=== PATIENT | female | born 1940 | race Caucasian/White ===

== ENCOUNTER 2018-11-05 09:41 | Outpatient (CLI) | payer MEDICARE, OTHER, SELFPAY ==
[2018-11-05 11:36] LABS: ALT 18 U/L (12-78); AST 17 U/L (15-37); Albumin 3.5 g/dL (3.4-5.0); Alkaline Phosphatase 63 U/L (46-116); Anion Gap 7.2 mmol/L (3-11); BUN 16 mg/dL (7-18); Bilirubin, Total 0.5 mg/dL (0.2-1.0); CO2 31.8 mmol/L (21.0-32.0); CREATININE 0.82 mg/dL (0.55-1.02); Chloride 106 mmol/L (98-107); Cholesterol 187 mg/dL (50-200); Glucose 112 mg/dL (70-100); HDL Cholesterol 63 mg/dL (40-60); LDL CHOLESTEROL 87 mg/dL (<100); Potassium 3.9 mmol/L (3.5-5.1); Sodium 145 mmol/L (136-145); Total Protein 6.8 g/dL (6.4-8.2); Triglyceride 256 mg/dL (30-150)
[2018-11-05 11:43] LABS: Calcium 9.5 mg/dL (8.5-10.1)
== END 2018-11-05 10:01 ==
PROVIDERS: PCP Family Medicine; Visit Provider Family Medicine
DX: E78.5 Hyperlipidemia, unspecified (principal)
CPT/HCPCS: 36415; 80053; 80061; 83721

== ENCOUNTER 2019-01-20 08:22 | Emergency (ER) | payer MEDICARE, OTHER, SELFPAY ==
[2019-01-20 08:39] VITALS: BP 176/84; PULSE 72; RESP 16; TEMP 36.6; O2SAT 98
[2019-01-20 08:43] LABS: Bilirubin Small (Negative); Blood Moderate (Negative); Clarity Sl Cloudy; Glucose Negative (Negative); Ketones Negative (Negative); Leukocyte Esterase Trace (Negative); Nitrite Negative (Negative); Specific Gravity >= 1.030 (1.005-1.025); Urobilinogen 0.2 EU/dL (Up TO 0.2)
[2019-01-20 09:00] LABS: Bacteria Moderate HPF (Negative); Crystals Negative HPF (Negative); Epithelial Cells Moderate HPF (Negative); Mucus Moderate (Negative); RBC 0-2 (0-2); WBC 20-50 HPF (0-5)
[2019-01-20 09:01] LABS: C & S Indicated? No/Sq. Contamination
--- NOTE | 2019-01-20 09:14 | W.ED.GENAD ---
Discharge Plan Disposition Patient Disposition: HOME Condition: Improving Discharge Details Chief Complaint: Abd Prob Clinical Impression: Inguinal hernia of left side without obstruction or gangrene, Blood pressure elevated without history of HTN Primary Care Provider: Elio Rubio ED Provider: Stuart Sheth Home Meds and New Rx's Prescriptions: Continued magnesium chloride [Mag 64] 64 MG tablet,delayed release (DR/EC) 64 mg PO BID RF: 0 biotin 1 MG tablet 1 mg PO DAILY RF: 0 cholecalciferol (vitamin D3) 5,000 UNIT tablet 5,000 unit PO DAILY RF: 0 albuterol sulfate [ProAir HFA] 8.5 GM HFA aerosol inhaler 2 puff Inhalation QID PRNQty: 3 RF: 4 fluticasone propionate 16 GM spray,suspension 1 spray NS BID Qty: 1 RF: 0 potassium chloride [Klor-Con] 20 MEQ packet 20 meq PO DAILY Qty: 90 RF: 4 Flovent HFA 12 GM HFA aerosol inhaler 1 puff Inhalation BID Qty: 3 RF: 4 montelukast [Singulair] 10 mg tablet 10 mg PO DAILY Qty: 90 RF: 4 omeprazole 20 mg capsule,delayed release(DR/EC) 20 mg PO DAILY Qty: 90 RF: 4 sertraline 25 mg tablet 25 mg PO DAILY Qty: 90 RF: 3 Discharge Instructions Instructions: Inguinal Hernia (ED), Hypertension (ED) Additional Instructions: Return to the emergency department immediately if you have any significant increase in pain or discomfort, fever chills, inability to pass gas or have bowel movements. Otherwise you should call general surgery office tomorrow for arrangement of follow-up appointment early next week. Referrals: [facility] [Provider Group] - 5 days Discharge Data Discharge Date/Time-TO BE ENTERED AT DEPARTURE: 01/20/19 13:47 Medical Decision Making Patient presenting to the emergency department for chief complaint left lower quadrant/inguinal mass and burning pain. Patient states that she has felt this bulging mass for approximately 2 months but yesterday started having significant burning sensation and pain to this area. Patient denies any fever chills, nausea vomiting does state one episode of loose stools this morning but otherwise denies any associated symptoms. She does state that she is incontinent of urine but this is been going on for ever . Physical exam does show a palpable mass in the left inguinal region that is not reducible. Patient has active bowel sounds and otherwise benign abdominal exam. Patient does state earlier today pain was 9 or 10 but now is only a 1. She does state that she took acetaminophen earlier this morning and lying down helps. Plan to check labs and CT imaging for concern of left inguinal hernia. Patient denies any need for pain medication at this time. Review of labs show no leukocytosis and no elevated lactate, nondiagnostic CMP, and CT showing inguinal hernia containing portion of sigmoid. Did call and speak with general surgeon Dr. Peralta who recommended early follow-up next week and return precautions standard for hernia. These were thoroughly discussed with patient. Patient placed upon follow-up list for assistance in arranging early follow-up next week. After discussion of diagnosis and plan of care patient has no further needs, questions, or concerns and states clear understanding to return to the emergency department for any worsening symptoms. Prior to ladies underwear operator staff informed me of elevated blood pressure readings. Patient was reassessed and denies any chest pain headache neurological symptoms and otherwise states she feels fine except being nervous about her ill daughter. Given the patient is asymptomatic and showing no other symptoms I feel that patient should have reassessment of her blood pressure at primary care's office within the next week given no history of hypertension return precautions for this were also discussed with patient HPI General Mode of arrival: ambulatory. Date/Time Provider Initiated Documentation: 01/20/19 08:51. Limitations to Documentation: no limitations. Information obtained by: patient and RN notes reviewed. History of Present Illness 78 year old F presents to the emergency department with the chief complaint of abd pain, possible hernia, described as mild, with intensity rated at 1. Quality is described as burning, and is localized to the abdomen and left (lower). Patient started experiencing this day(s) (2) and it has been constant. No exacerbating factors reported . Patient notes no other symptoms.. Patient did receive the following treatments prior to arrival, other (Acetaminophen) Related Data Home Medications Medication Instructions Recorded Confirmed magnesium chloride [Mag 64] 64 mg PO BID 03/25/13 01/24/19 biotin 1 mg PO DAILY 08/13/16 01/24/19 cholecalciferol (vitamin D3) 5,000 unit PO DAILY 08/13/16 01/24/19 albuterol sulfate [ProAir HFA] 2 puff INHALATION QID PRN #3 ea 11/11/16 01/24/19 fluticasone propionate 1 spray NS BID #1 bottle 10/12/17 01/24/19 potassium chloride [Klor-Con] 20 meq PO DAILY #90 packet 02/15/18 01/24/19 Flovent HFA 1 puff INHALATION BID #3 ea 03/21/18 01/24/19 montelukast 10 mg tablet 10 mg PO DAILY #90 tab-cap 11/12/18 01/24/19 omeprazole 20 mg capsule,delayed 20 mg PO DAILY #90 tab-cap 11/12/18 01/24/19 release sertraline 25 mg tablet 25 mg PO DAILY #90 tab-cap 11/15/18 01/24/19 Previous Rx's Medication Instructions Recorded fluticasone propionate 1 spray NS BID #1 bottle 10/12/17 potassium chloride [Klor-Con] 20 meq PO DAILY #90 packet 02/15/18 Flovent HFA 1 puff INHALATION BID #3 ea 03/21/18 montelukast 10 mg tablet 10 mg PO DAILY #90 tab-cap 11/12/18 omeprazole 20 mg capsule,delayed 20 mg PO DAILY #90 tab-cap 11/12/18 release sertraline 25 mg tablet 25 mg PO DAILY #90 tab-cap 11/15/18 Allergies Allergy/AdvReac Type Severity Reaction Status Date / Time cephalexin Allergy Severe SKIN RASH Unverified 01/24/19 11:33 Penicillins Allergy Intermediate SKIN RASH Unverified 01/24/19 11:33 erythromycin base Allergy Unknown Unverified 01/24/19 11:33 benzonatate AdvReac Intermediate migraine, Unverified 01/24/19 11:33 eye burning levofloxacin [From Levaquin] AdvReac Intermediate mouth sores Unverified 01/24/19 11:33 NSAIDS (Non-Steroidal AdvReac Intermediate ASTHMA Unverified 01/24/19 11:33 Anti-Inflamma EXACERBATION simvastatin AdvReac Mild MYALGIAS Unverified 01/24/19 11:33 aspirin AdvReac Unknown ASTHMA Unverified 01/24/19 11:33 EXACERBATION pseudoephedrine AdvReac Unknown INSOMNIA Unverified 01/24/19 11:33 General Stated Complaint: Abd Prob LAMBERTO: 3 Review of Systems Constitutional Denies chills, Denies fever(s) and Denies poor appetite Cardiovascular Denies chest pain and Denies dyspnea Respiratory Denies cough and Denies dyspnea Gastrointestinal Reports as per HPI, Reports abdominal pain, Denies melena, Denies change in bowel habits, Denies constipation, Denies diarrhea, Reports loose stools (x1 today), Denies nausea and Denies vomiting Genitourinary Denies hematuria, Denies pelvic pain, Reports urinary incontinence, Denies urinary hesitancy and Denies urinary urgency Integumentary/Breasts Denies rash [facility] Surgical History Ligation of fallopian tube Repair of inguinal hernia Family History Mother Heart disease Asthma Father Heart disease Cancer Sister RA (rheumatoid arthritis) Heart disease Asthma Brother Asthma Cancer Diabetes Brother Essential hypertension Depression Heart disease Asthma Maternal Grandfather Heart disease Asthma Paternal Grandfather Cancer Maternal Grandmother Diabetes Paternal Grandmother Stroke Son RA (rheumatoid arthritis) Daughter Diabetes Depression Stroke MS (multiple sclerosis) Asthma Social History Smoking/Tobacco Use Status: Former Tobacco Use Alcohol Intake: current Alcohol Intake frequency: 0-2 drinks per day Alcohol type: wine Drug use: Never Substance use type: does not use Caregiver/Support person: No Housing: house Pets and animals: No Sexually active: No Current gender identity: female What is your relationship status?: How often do you talk on the phone with friends or family?: once per week How often do you get together with friends or relatives?: twice per week How often do you attend spiritism or temple services?: decline to answer Do you belong to any clubs or organized social groups?: no Panel score (0-1 are the most socially isolated patients): 1 Duration: 15-30 minutes/day Frequency: 3-4 times per week Verito/Orthodoxy: Protestant Do you feel safe in your relationship?: Yes Exam Const General: cooperative Orientation: alert, awake and oriented x3 Resp Effort & Inspection: normal respiratory effort and able to speak in complete sentences Auscultation: clear to auscultation bilaterally Cardio Rate: regular rate Rhythm: regular rhythm Heart Sounds: S1 normal and S2 normal GI Palpation: soft, no hepatosplenomegaly, not firm, no guarding, hernia, mass (Left inguinal), no pulsatile masses, not rigid, no splenomegaly and tender in the LLQ; not at McBurney's point and Rovsing's sign negative Auscultation: normal bowel sounds Back/Spine/Pelvis Back: no CVA tenderness Neuro General: alert, awake, oriented x3, gait normal and moves all extremities Course Vital Signs Temperature 36.6 C 01/20/19 08:39 Pulse 72 01/20/19 08:39 Respiratory Rate 16 01/20/19 08:39 Blood Pressure 176/84 H 01/20/19 08:39 Pulse Oximetry 98 01/20/19 08:39 Temperature 36.6 C 01/20/19 08:39 Temperature Source Skin 01/20/19 08:39 Pulse 72 01/20/19 08:39 Respiratory Rate 16 01/20/19 08:39 Respiratory Effort Non-Labored 01/20/19 08:39 Blood Pressure 176/84 H 01/20/19 08:39 Blood Pressure Position Sitting 01/20/19 08:39 Pulse Oximetry 98 01/20/19 08:39 Oxygen Delivery Method Room Air 01/20/19 08:39 Oxygen Flow Rate 0 01/20/19 08:39 Pain Level 0 01/20/19 08:39 Lab/Test Results Lab/Test Results: Laboratory Tests Range/Units 01/20/19 08:35 Urine Color (Yellow) Yellow Urine Clarity Sl cloudy Urine pH (5-8) 5.0 Ur Specific [place] (1.005-1.025) >= 1.030 H Urine Protein (Negative) mg/dL 100 H Urine Ketones (Negative) mg/dL Negative Urine Blood (Negative) Moderate H Urine Nitrite (Negative) Negative Urine Bilirubin (Negative) Small H Urine Urobilinogen (Up TO 0.2) EU/dL 0.2 Ur Leukocyte Esterase (Negative) Trace H Urine RBC (0-2) 0-2 Urine WBC (0-5) HPF 20-50 Ur Epithelial Cells (Negative) HPF Moderate Urine Crystals (Negative) HPF Negative Urine Bacteria (Negative) HPF Moderate Urine Mucus (Negative) Moderate Urine Other (Negative) Ur Culture Indicated? No/sq. contamination Urine Glucose (Negative) mg/dL Negative
--- NOTE | 2019-01-20 09:19 | ED.GENADUL_ITS ---
Discharge Plan Disposition Patient Disposition: HOME Condition: Improving Discharge Details Chief Complaint: Abd Prob Clinical Impression: Inguinal hernia of left side without obstruction or gangrene, Blood pressure elevated without history of HTN Primary Care Provider: Elio Rubio ED Provider: Stuart Sheth Home Meds and New Rx's Prescriptions: Continued magnesium chloride [Mag 64] 64 MG tablet,delayed release (DR/EC) 64 mg PO BID RF: 0 biotin 1 MG tablet 1 mg PO DAILY RF: 0 cholecalciferol (vitamin D3) 5,000 UNIT tablet 5,000 unit PO DAILY RF: 0 albuterol sulfate [ProAir HFA] 8.5 GM HFA aerosol inhaler 2 puff Inhalation QID PRNQty: 3 RF: 4 fluticasone propionate 16 GM spray,suspension 1 spray NS BID Qty: 1 RF: 0 potassium chloride [Klor-Con] 20 MEQ packet 20 meq PO DAILY Qty: 90 RF: 4 Flovent HFA 12 GM HFA aerosol inhaler 1 puff Inhalation BID Qty: 3 RF: 4 montelukast [Singulair] 10 mg tablet 10 mg PO DAILY Qty: 90 RF: 4 omeprazole 20 mg capsule,delayed release(DR/EC) 20 mg PO DAILY Qty: 90 RF: 4 sertraline 25 mg tablet 25 mg PO DAILY Qty: 90 RF: 3 Discharge Instructions Instructions: Inguinal Hernia (ED), Hypertension (ED) Additional Instructions: Return to the emergency department immediately if you have any significant increase in pain or discomfort, fever chills, inability to pass gas or have bowel movements. Otherwise you should call general surgery office tomorrow for arrangement of follow-up appointment early next week. Referrals: [facility] [Provider Group] - 5 days Discharge Data Discharge Date/Time-TO BE ENTERED AT DEPARTURE: 01/20/19 13:47 Medical Decision Making Patient presenting to the emergency department for chief complaint left lower quadrant/inguinal mass and burning pain. Patient states that she has felt this bulging mass for approximately 2 months but yesterday started having significant burning sensation and pain to this area. Patient denies any fever chills, nausea vomiting does state one episode of loose stools this morning but otherwise denies any associated symptoms. She does state that she is incontinent of urine but this is been going on for ever . Physical exam does show a palpable mass in the left inguinal region that is not reducible. Patient has active bowel sounds and otherwise benign abdominal exam. Patient does state earlier today pain was 9 or 10 but now is only a 1. She does state that she took acetaminophen earlier this morning and lying down helps. Plan to check labs and CT imaging for concern of left inguinal hernia. Patient denies any need for pain medication at this time. Review of labs show no leukocytosis and no elevated lactate, nondiagnostic CMP, and CT showing inguinal hernia containing portion of sigmoid. Did call and speak with general surgeon Dr. Peralta who recommended early follow-up next week and return precautions standard for hernia. These were thoroughly discussed with patient. Patient placed upon follow-up list for assistance in arranging early follow-up next week. After discussion of diagnosis and plan of care patient has no further needs, questions, or concerns and states clear understanding to return to the emergency department for any worsening symptoms. 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 Patient was reassessed and denies any chest pain headache neurological symptoms and otherwise states she feels fine except being nervous about her ill daughter. Given the patient is asymptomatic and showing no other symptoms I feel that patient should have reassessment of her blood pressure at primary care's office within the next week given no history of hypertension return precautions for this were also discussed with patient HPI General Mode of arrival: ambulatory . Date/Time Provider Initiated Documentation: 01/20/19 08:51 . Limitations to Documentation: no limitations . Information obtained by: patient and RN notes reviewed . History of Present Illness 78 year old F presents to the emergency department with the chief complaint of abd pain, possible hernia, described as mild, with intensity rated at 1. Quality is described as burning, and is localized to the abdomen and left (lower). Patient started experiencing this day(s) (2) and it has been constant. No exacerbating factors reported . Patient notes no other symptoms.. Patient did receive the following treatments prior to arrival, other (Acetaminophen) Related Data Home Medications Medication Instructions Recorded Confirmed magnesium chloride [Mag 64] 64 mg PO BID 03/25/13 01/24/19 biotin 1 mg PO DAILY 08/13/16 01/24/19 cholecalciferol (vitamin D3) 5,000 unit PO DAILY 08/13/16 01/24/19 albuterol sulfate [ProAir HFA] 2 puff INHALATION QID PRN #3 ea 11/11/16 01/24/19 fluticasone propionate 1 spray NS BID #1 bottle 10/12/17 01/24/19 potassium chloride [Klor-Con] 20 meq PO DAILY #90 packet 02/15/18 01/24/19 Flovent HFA 1 puff INHALATION BID #3 ea 03/21/18 01/24/19 montelukast 10 mg tablet 10 mg PO DAILY #90 tab-cap 11/12/18 01/24/19 omeprazole 20 mg capsule,delayed 20 mg PO DAILY #90 tab-cap 11/12/18 01/24/19 release sertraline 25 mg tablet 25 mg PO DAILY #90 tab-cap 11/15/18 01/24/19 Previous Rx's Medication Instructions Recorded fluticasone propionate 1 spray NS BID #1 bottle 10/12/17 potassium chloride [Klor-Con] 20 meq PO DAILY #90 packet 02/15/18 Flovent HFA 1 puff INHALATION BID #3 ea 03/21/18 montelukast 10 mg tablet 10 mg PO DAILY #90 tab-cap 11/12/18 omeprazole 20 mg capsule,delayed 20 mg PO DAILY #90 tab-cap 11/12/18 release sertraline 25 mg tablet 25 mg PO DAILY #90 tab-cap 11/15/18 Allergies Allergy/AdvReac Type Severity Reaction Status Date / Time cephalexin Allergy Severe SKIN RASH Unverified 01/24/19 11:33 Penicillins Allergy Intermediate SKIN RASH Unverified 01/24/19 11:33 erythromycin base Allergy Unknown Unverified 01/24/19 11:33 benzonatate AdvReac Intermediate migraine, Unverified 01/24/19 11:33 eye burning levofloxacin [From Levaquin] AdvReac Intermediate mouth sores Unverified 01/24/19 11:33 NSAIDS (Non-Steroidal AdvReac Intermediate ASTHMA Unverified 01/24/19 11:33 Anti-Inflamma EXACERBATION simvastatin AdvReac Mild MYALGIAS Unverified 01/24/19 11:33 aspirin AdvReac Unknown ASTHMA Unverified 01/24/19 11:33 EXACERBATION pseudoephedrine AdvReac Unknown INSOMNIA Unverified 01/24/19 11:33 General Stated Complaint: Abd Prob LAMBERTO: 3 Review of Systems Constitutional Denies chills, Denies fever(s) and Denies poor appetite Cardiovascular Denies chest pain and Denies dyspnea Respiratory Denies cough and Denies dyspnea Gastrointestinal Reports as per HPI, Reports abdominal pain, Denies melena, Denies change in bowel habits, Denies constipation, Denies diarrhea, Reports loose stools (x1 today), Denies nausea and Denies vomiting Genitourinary Denies hematuria, Denies pelvic pain, Reports urinary incontinence, Denies urinary hesitancy and Denies urinary urgency Integumentary/Breasts Denies rash [facility] Surgical History Ligation of fallopian tube Repair of inguinal hernia Family History Mother Heart disease Asthma Father Heart disease Cancer Sister RA (rheumatoid arthritis) Heart disease Asthma Brother Asthma Cancer Diabetes Brother Essential hypertension Depression Heart disease Asthma Maternal Grandfather Heart disease Asthma Paternal Grandfather Cancer Maternal Grandmother Diabetes Paternal Grandmother Stroke Son RA (rheumatoid arthritis) Daughter Diabetes Depression Stroke MS (multiple sclerosis) Asthma Social History Smoking/Tobacco Use Status: Former Tobacco Use Alcohol Intake: current Alcohol Intake frequency: 0-2 drinks per day Alcohol type: wine Drug use: Never Substance use type: does not use Caregiver/Support person: No Housing: house Pets and animals: No Sexually active: No Current gender identity: female What is your relationship status?: How often do you talk on the phone with friends or family?: once per week How often do you get together with friends or relatives?: twice per week How often do you attend holiness or gnosticist services?: decline to answer Do you belong to any clubs or organized social groups?: no Panel score (0-1 are the most socially isolated patients): 1 Duration: 15-30 minutes/day Frequency: 3-4 times per week Verito/Buddhism: Rastafari Do you feel safe in your relationship?: Yes Exam Const General: cooperative Orientation: alert, awake and oriented x3 Resp Effort & Inspection: normal respiratory effort and able to speak in complete sentences Auscultation: clear to auscultation bilaterally Cardio Rate: regular rate Rhythm: regular rhythm Heart Sounds: S1 normal and S2 normal GI Palpation: soft, no hepatosplenomegaly, not firm, no guarding, hernia, mass (Left inguinal), no pulsatile masses, not rigid, no splenomegaly and tender in the LLQ; not at McBurney's point and Rovsing's sign negative Auscultation: normal bowel sounds Back/Spine/Pelvis Back: no CVA tenderness Neuro General: alert, awake, oriented x3, gait normal and moves all extremities Course Vital Signs Temperature 36.6 C 01/20/19 08:39 Pulse 72 01/20/19 08:39 Respiratory Rate 16 01/20/19 08:39 Blood Pressure 176/84 H 01/20/19 08:39 Pulse Oximetry 98 01/20/19 08:39 Temperature 36.6 C 01/20/19 08:39 Temperature Source Skin 01/20/19 08:39 Pulse 72 01/20/19 08:39 Respiratory Rate 16 01/20/19 08:39 Respiratory Effort Non-Labored 01/20/19 08:39 Blood Pressure 176/84 H 01/20/19 08:39 Blood Pressure Position Sitting 01/20/19 08:39 Pulse Oximetry 98 01/20/19 08:39 Oxygen Delivery Method Room Air 01/20/19 08:39 Oxygen Flow Rate 0 01/20/19 08:39 Pain Level 0 01/20/19 08:39 Lab/Test Results Lab/Test Results: Laboratory Tests Range/Units 01/20/19 08:35 Urine Color (Yellow) Yellow Urine Clarity Sl cloudy Urine pH (5-8) 5.0 Ur Specific [place] (1.005-1.025) >= 1.030 H Urine Protein (Negative) mg/dL 100 H Urine Ketones (Negative) mg/dL Negative Urine Blood (Negative) Moderate H Urine Nitrite (Negative) Negative Urine Bilirubin (Negative) Small H Urine Urobilinogen (Up TO 0.2) EU/dL 0.2 Ur Leukocyte Esterase (Negative) Trace H Urine RBC (0-2) 0-2 Urine WBC (0-5) HPF 20-50 Ur Epithelial Cells (Negative) HPF Moderate Urine Crystals (Negative) HPF Negative Urine Bacteria (Negative) HPF Moderate Urine Mucus (Negative) Moderate Urine Other (Negative) Ur Culture Indicated? No/sq. contamination Urine Glucose (Negative) mg/dL Negative
[2019-01-20] MEDS: Omnipaque 350 MG/ML 50 ML BTL PO (09:34)
[2019-01-20] MEDS: Breeza Beverage 473 ML BTL PO ×2 (09:34→09:35)
[2019-01-20 09:35] LABS: Lactate-non-spesis 1.4 mmol/l (0.6-1.4)
[2019-01-20 09:39] LABS: Abs Immature Grans 0.01 k/cumm (0.0-0.09); Absolute Basophil Count 0.04 k/cumm (0.0-0.2); Absolute Eosinophil Count 0.36 k/cumm (0.0-0.7); Absolute Lymphocyte Count 1.12 k/cumm (1.2-3.4); Absolute Monocyte Count 0.44 k/cumm (0.11-0.7); Absolute Neutrophil Count 6.34 k/cumm (1.2-6.7); Basophils % 0.5; Eosinophils % 4.3; HCT 39.3 % (36.0-46.0); HGB 12.4 g/dL (12.0-15.5); Immature Grans % 0.1; Lymphocytes % 13.5; Mean Corp. HGB Concentration 31.6 g/dL (32.0-36.0); Mean Corpuscular Volume 98.3 fL (80-95); Mean Platelet Volume 9.9 fL (8.0-11.0); Monocytes % 5.3; Neutrophils % 76.3; Platelet Count 253 x1000/uL (130-400); RBC Distribution Width 13.1 % (11.7-14.6); White Blood Cell Count 8.31 k/cumm (4.4-10.8)
[2019-01-20 09:58] LABS: ALT 20 U/L (12-78); AST 17 U/L (15-37); Albumin 3.6 g/dL (3.4-5.0); Alkaline Phosphatase 66 U/L (46-116); Anion Gap 10.5 mmol/L (3-11); BUN 11 mg/dL (7-18); Bilirubin, Total 0.4 mg/dL (0.2-1.0); CO2 27.5 mmol/L (21.0-32.0); CREATININE 0.87 mg/dL (0.55-1.02); Calcium 9.6 mg/dL (8.5-10.1); Chloride 103 mmol/L (98-107); Glucose 102 mg/dL (70-100); Sodium 141 mmol/L (136-145); Total Protein 7.3 g/dL (6.4-8.2)
--- NOTE | 2019-01-20 11:43 | DI.CT_ITS ---
SYMPTOM/DIAGNOSIS: LLQ PAIN ABDOMEN AND PELVIC CT: CT examination of the abdomen and pelvis was performed with a bolus infusion of 100 cc's of Omnipaque 350 and ingestion of dilute barium. Images obtained through the lung bases are unremarkable. Liver, spleen and pancreas appear normal. Gallbladder and bile ducts are CT normal. Abdominal aorta is of normal diameter and no major vascular abnormality is seen. Adrenals and kidneys are unremarkable except for an incidental tiny cortical left renal lower pole cyst. Appendix appears normal. No evidence of diverticulitis. There is a left inguinal hernia which contains a small knuckle of sigmoid colon. There does not appear to be obstruction at this site. Note is also made of a small fat containing umbilical hernia. [employer] structures appear intact. CONCLUSION: No evidence of acute process however note is made of left inguinal hernia containing a knuckle of the sigmoid colon without evidence of acute obstruction.
[2019-01-20 13:21] VITALS: BP 186/92; PULSE 91; RESP 18; TEMP 36.6; O2SAT 96
--- NOTE | 2019-01-20 13:45 | NUR.NOTE ---
N/P addressed asymptomatic elevated blood pressure with patient, no new orders, patient is comfortable following up with PCP. Nursing Note:
--- NOTE | 2019-01-21 08:18 | PDOC.ERCMPRO ---
Care Management Progress Note 01/21-Reji SENIOR PROJECT LEADER/TEAM LEAD requested assistance with a surgical f/u early next week (Per ) for inguinal hernia. Referral faxed to [facility] this am.
--- NOTE | 2019-01-21 08:19 | CMPROGNOTE_ITS ---
Care Management Progress Note 01/21-Reji GLOBAL PROFESSIONAL requested assistance with a surgical f/u early next week (Per ) for inguinal hernia. Referral faxed to [facility] this am.
== END 2019-01-20 13:47 | disposition home or self-care (01) ==
PROVIDERS: Emergency Provider Nurse Practitioner Family; PCP Family Medicine
DX: K40.90 Unilateral inguinal hernia, without obstruction or gangrene, not specified as recurrent (principal); R03.0 Elevated blood-pressure reading, without diagnosis of hypertension
CPT/HCPCS: 36415; 80053; 99285; 74177; 81003; 81015; 83605; 85025; 99284; Q9967

== ENCOUNTER → 2019-01-31 09:51 | Outpatient (BNVA) | payer MEDICARE, OTHER, SELFPAY | PROVIDERS: PCP Family Medicine; Referring Provider Family Medicine; Visit Provider Surgery | DX: K40.90 Unilateral inguinal hernia, without obstruction or gangrene, not specified as recurrent (principal) | CPT/HCPCS: 99212; 99213 ==

== ENCOUNTER 2019-02-03 02:14 | Outpatient (CLI) | payer MEDICARE, OTHER, SELFPAY | END 2019-02-03 02:34 | PROVIDERS: PCP Family Medicine; Visit Provider Surgery | DX: J44.9 Chronic obstructive pulmonary disease, unspecified (principal); Z01.810 Encounter for preprocedural cardiovascular examination | CPT/HCPCS: 93005; 93010 ==

== ENCOUNTER 2019-02-15 05:57 | Day surgery (SDC) | payer MEDICARE, SELFPAY ==
[2019-02-15] VITALS (7 sets, daily range): BP systolic 148–169; BP diastolic 69–98; PULSE 62–69; RESP 1–21; TEMP 36.4–36.6; O2SAT 95–100
[2019-02-15] MEDS: Lactated Ringers 1,000 ML 80 ML IV (06:50)
[2019-02-15] MEDS: Bupivacaine LIPOSOME/PF 133 MG/10 ML VIAL IJ ×2 (07:19→08:30)
[2019-02-15] MEDS: Albuterol 2.5 MG/3 ML INH SOLN VIAL UPD (07:24)
[2019-02-15] MEDS: Bupivacaine 0.25% Pres-Free 30 ML VIAL (07:40)
[2019-02-15] MEDS: DOXYCYCLINE 100 MG in Normal Saline 100 ML IVPB (07:58)
[2019-02-15] MEDS: Bupivacaine 0.5% Pres-Free 30 ML VIAL (08:09)
--- NOTE | 2019-02-15 08:19 | LYM_PTH ---
PATIENT: María Vargas LOC: [facility] U#:[id number] AGE/SX: 78/F ROOM: RE02/15/[address]: Nicole Shelley : 1940 BED: DIS: 02/15/2019 SPEC #: [id number] RECD: 02/15/19 12:51 STATUS: CLAUDE REQ #: [id number] ARMOND: 02/15/19 08:[address]: Nicole Shelley DEPT: Surgical Specimen RECD BY: Tamra Bethea ENTERED: 02/15/19 12:52 SP TYPE: LYM OTHR DR: Elio Rubio MD Tissues: 1 - LYMPH NODE BIOPSY Procedures: GROSS AND MICRO LEVEL 4 Comments: [id number]
--- NOTE | 2019-02-15 08:47 | W.PM.OP ---
Date of service: 02/15/19 Time of Service: 08:48 Operative Note DATE OF PROCEDURE: 02/15/19 PRE-OP DIAGNOSIS: left inguinal hernia POST-OP DIAGNOSIS: other (direct ) PROCEDURE: open repair w/ mesh SURGEON: Nicole Shelley ANESTHESIA: GETA ESTIMATED BLOOD LOSS: 2 COMPLICATIONS: None Patient was transported to: same day Implants: see RN notes lot: [id number] Procedure Description: dictated
--- NOTE | 2019-02-15 08:50 | ROE_ITS ---
Date of service: 02/15/19 Time of Service: 08:48 Operative Note DATE OF PROCEDURE: 02/15/19 PRE-OP DIAGNOSIS: left inguinal hernia POST-OP DIAGNOSIS: other (direct ) PROCEDURE: open repair w/ mesh SURGEON: Nicole Shelley ANESTHESIA: GETA ESTIMATED BLOOD LOSS: 2 COMPLICATIONS: None Patient was transported to: same day Implants: see RN notes lot: [id number] Procedure Description: dictated
--- NOTE | 2019-02-15 14:36 | ROE_ITS ---
DATE OF PROCEDURE: February 15, 2019 PREOPERATIVE DIAGNOSIS: Left inguinal hernia. POSTOPERATIVE DIAGNOSIS: Left inguinal hernia, direct. SURGEON: Nicole Shelley D.O. AURIST: Mauricio Ferrer ANESTHESIA: General/MAC. ESTIMATED BLOOD LOSS: < 5 cc's CONDITION: The patient tolerated the procedure well without complication. INDICATION FOR PROCEDURE: Ms. Vargas is a 78-year-old female seen for a symptomatic left inguinal hernia and is here today for repair. Informed consent was obtained, explaining risks and benefits of the procedure, including but not limited to bleeding, infection, pneumonia, blood clots, recurrence, chronic pain, chronic numbness, reaction to the mesh and having to remove the mesh, complications of anesthesia and other unforetold complications. The patient is examined and marked in preop. DESCRIPTION OF PROCEDURE: The patient is brought to the operative room suite and placed in the supine position. Anesthesia is administered per the Department of Anesthesia. A TAP block was done by Anesthesia. The patient is prepped and draped in the usual sterile fashion using a ChloraPrep and Betadine scrub solution. A time-out is performed and we agree that this is a left hernia. She did receive preop antibiotics. A #10 blade is used to make a linear incision one fingerbreadth above the ilioinguinal ligament. Electrocautery is used to provide hemostasis and dissect down to the deeper tissues. She does have a firm and enlarged and what appears to be a lymph node; this is dissected out and sent to Pathology because it is so firm, but it is most-likely reactive. She does have a large hernia protruding through what would be her external ring. The nerve is noted and it is dissected off the hernia sac. The hernia sac is not opened, and is dissected off of surrounding tissue. It is returned to the abdominal cavity. An extra-large Bard mesh PerFix plug is placed in and over-sewn using #2-0 Vicryl. Lot [id number]. The patch is then placed, it is sewn onto the pubic tubercle and then sewn onto the shelving portion of the external oblique. The wound is then irrigated. The deep tissues are approximated with #2-0 Vicryl and the skin and deep tissue is approximated with #4-0 Monocryl in a running fashion and with skin glue. The patient tolerated the procedure well without complication and transferred to the recovery room in stable condition. cc: Elio Rubio M.D.
== END 2019-02-15 10:57 | disposition home or self-care (01) ==
PROVIDERS: PCP Family Medicine; Visit Provider Surgery
PROC: (CPT 49505; principal; 2019-02-15 07:30)
DX: K40.90 Unilateral inguinal hernia, without obstruction or gangrene, not specified as recurrent (principal); K21.9 Gastro-esophageal reflux disease without esophagitis
CPT/HCPCS: 49505; 76942; 88305; C1781; J1885; J2405; J3010; J7613

== ENCOUNTER 2019-02-22 10:07 | Outpatient (CLI) | payer MEDICARE, SELFPAY ==
--- NOTE | 2019-02-22 09:59 | DI.RAD_ITS ---
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 In addition there is severe DJD involving the first metacarpal multangular joint. There is no evidence of a fracture or dislocation.
== END 2019-02-22 10:27 ==
PROVIDERS: PCP Family Medicine; Referring Provider Family Medicine; Visit Provider Orthopaedic Surgery
DX: M25.541 Pain in joints of right hand (principal); M19.041 Primary osteoarthritis, right hand
CPT/HCPCS: 99211; 73140

== ENCOUNTER 2019-02-22 10:59 | Outpatient (CLI) | payer MEDICARE, SELFPAY ==
[2019-02-22 13:31] LABS: Uric Acid 6.9 mg/dL (2.6-6.0)
== END 2019-02-22 11:19 ==
PROVIDERS: PCP Family Medicine; Visit Provider Orthopaedic Surgery
DX: M79.641 Pain in right hand (principal); M10.9 Gout, unspecified; M25.441 Effusion, right hand
CPT/HCPCS: 36415; 99211; 99213; 73140; 84550

== ENCOUNTER → 2019-02-24 11:31 | Outpatient (BNVA) | payer MEDICARE, SELFPAY | PROVIDERS: PCP Family Medicine; Referring Provider Family Medicine; Visit Provider Surgery | DX: Z48.89 Encounter for other specified surgical aftercare (principal); K40.90 Unilateral inguinal hernia, without obstruction or gangrene, not specified as recurrent ==

== ENCOUNTER 2019-02-27 13:07 | Emergency (ER) | payer MEDICARE, SELFPAY ==
[2019-02-27 13:21] VITALS: BP 185/72; PULSE 86; RESP 18; TEMP 36.7; O2SAT 97
--- NOTE | 2019-02-27 13:56 | W.ED.GENAD ---
Discharge Plan Disposition Patient Disposition: HOME Discharge Details Chief Complaint: Cellulitis Clinical Impression: Generalized weakness Primary Care Provider: Elio Rubio ED Provider: Victor M Bland Home Meds and New Rx's Prescriptions: Continued fluticasone propionate 50 mcg/actuation spray,suspension 1 spray NS BID PRN (Reason: allergy symptoms) RF: 0 amlodipine 5 mg tablet 5 mg PO DAILY Qty: 30 RF: 5 Lactobacillus acidophilus 1 billion cell capsule 1,000 mmu cells PO DAILY Qty: 30 RF: 0 magnesium chloride [Mag 64] 64 MG tablet,delayed release (DR/EC) 64 mg PO BID RF: 0 biotin 1 MG tablet 1 mg PO DAILY RF: 0 cholecalciferol (vitamin D3) 5,000 UNIT tablet 5,000 unit PO DAILY RF: 0 albuterol sulfate [ProAir HFA] 8.5 GM HFA aerosol inhaler 2 puff Inhalation QID PRNQty: 3 RF: 4 potassium chloride [Klor-Con] 20 MEQ packet 20 meq PO DAILY Qty: 90 RF: 4 Flovent HFA 12 GM HFA aerosol inhaler 1 puff Inhalation BID Qty: 3 RF: 4 montelukast [Singulair] 10 mg tablet 10 mg PO DAILY Qty: 90 RF: 4 omeprazole 20 mg capsule,delayed release(DR/EC) 20 mg PO DAILY Qty: 90 RF: 4 sertraline 25 mg tablet 25 mg PO HS RF: 0 Discharge Instructions Instructions: Weakness (ED), Hypomagnesemia (ED) Additional Instructions: Be sure to take full course of antibiotic as prescribed. Drink plenty of fluids and allow for plenty of rest. Please contact your primary care physician to arrange follow-up. Be sure to discuss restarting her antihypertensive medication. Please follow-up with surgery as scheduled tomorrow. Return to the ER for any worsening or new concerning symptoms. Referrals: Elio Rubio [Primary Care Provider] - Discharge Data Discharge Date/Time-TO BE ENTERED AT DEPARTURE: 02/27/19 15:55 Medical Decision Making 14:05 --78-year-old female here today generally not feeling well, felt chilly earlier. Patient is hemodynamically stable. Afebrile. She does have some rhonchi left lower lung. She denies recent cough or shortness of breath. She is saturating well in no respiratory distress. Abdominal exam is benign. Patient does have elevated blood pressure which she notes has been persistent since surgery when she was told to stop taking her antihypertensive Patient did have a hernia repair on 02/15/2019 and saw her primary care physician on 02/24/2019 in follow-up was noted to have some erythema adjacent to the hernia repair site. She was started on doxycycline which she is been taking for the past few days. Redness has resolved. She has some induration under the surgical wound but is nontender and presumed to be scar tissue. --Screening ECG was reviewed and interpreted by me: Sinus rhythm 75 bpm, left axis deviation, no STEMI, nondiagnostic. 15:12 --labs reviewed and nondiagnostic. Mild hypomagnesemia -this may be contributing to weakness. Plan to give 1 g IV. UA is not consistent with UTI. Chest x-ray interpreted by radiology: No evidence for acute abnormality in the chest. Patient reassessed and notes feeling better. Plan at this time is to have her follow-up with surgery as scheduled tomorrow. I encouraged her to talk about her antihypertensives with her physician. Disposition decision was made weighing the risks and benefits of hospitalization versus outpatient treatment, the risk for further decompensation, and the patient's wishes. The patient was stable and requested discharge. Prior to discharge, my usual and customary return precautions were reviewed with the patient - this included follow-up instructions and reason to return to the emergency department if condition worsens, does not improve as expected, or other new concerns arise. 16:00 -- Patient was discharged from the emergency department prior to receiving magnesium 1 g as ordered. Patient contacted. Patient friend here to bring her mag ox 800mg. Additional discharge instructions were provided regarding low magnesium. Patient was encouraged to follow-up with her primary care physician regarding this. HPI General Mode of arrival: ambulatory. Date/Time Provider Initiated Documentation: 02/27/19 13:33. Limitations to Documentation: no limitations. Information obtained by: patient. HPI Narrative: 78-year-old female with multiple medical problems presents with chief complaint of generally not feeling well. Symptoms persistestarted last night and persisted today. Patient notes that she generally just doesn't feel well and felt chilly earlier today. She denies shaking chills. She does not have a thermometer at home. She denies cough. Patient has chronic urinary incontinence. Denies dysuria. Patient did have hernia repair on 02/15/2019 left inguinal, was seen by PCP on 02/24/2019 and noted to have some erythema adjacent to the surgical wound and was started on doxycycline which she is been taking as prescribed. She notes wound appears to be healing well. No significant tenderness in the area. Erythema has improved. Related Data Home Medications Medication Instructions Recorded Confirmed magnesium chloride [Mag 64] 64 mg PO BID 03/25/13 03/02/19 biotin 1 mg PO DAILY 08/13/16 03/02/19 cholecalciferol (vitamin D3) 5,000 unit PO DAILY 08/13/16 03/02/19 albuterol sulfate [ProAir HFA] 2 puff INHALATION QID PRN #3 ea 11/11/16 03/02/19 potassium chloride [Klor-Con] 20 meq PO DAILY #90 packet 02/15/18 03/02/19 Flovent HFA 1 puff INHALATION BID #3 ea 03/21/18 03/02/19 montelukast 10 mg tablet 10 mg PO DAILY #90 tab-cap 11/12/18 03/02/19 omeprazole 20 mg capsule,delayed 20 mg PO DAILY #90 tab-cap 11/12/18 03/02/19 release fluticasone propionate 50 1 spray NS BID PRN bottle 01/31/19 03/02/19 mcg/actuation nasal spray,suspension sertraline 25 mg PO HS 02/09/19 03/02/19 amlodipine 5 mg tablet 5 mg PO DAILY #30 tab 02/21/19 03/02/19 Lactobacillus acidophilus 1 1,000 mmu cells PO DAILY #30 cap 02/24/19 03/02/19 billion cell capsule Previous Rx's Medication Instructions Recorded potassium chloride [Klor-Con] 20 meq PO DAILY #90 packet 02/15/18 Flovent HFA 1 puff INHALATION BID #3 ea 03/21/18 montelukast 10 mg tablet 10 mg PO DAILY #90 tab-cap 11/12/18 omeprazole 20 mg capsule,delayed 20 mg PO DAILY #90 tab-cap 11/12/18 release amlodipine 5 mg tablet 5 mg PO DAILY #30 tab 02/21/19 Lactobacillus acidophilus 1 1,000 mmu cells PO DAILY #30 cap 02/24/19 billion cell capsule Allergies Allergy/AdvReac Type Severity Reaction Status Date / Time cephalexin Allergy Severe SKIN RASH Verified 02/28/19 12:54 Penicillins Allergy Intermediate SKIN RASH Verified 02/28/19 12:54 erythromycin base Allergy Unknown Verified 02/28/19 12:54 benzonatate AdvReac Intermediate migraine, Verified 02/28/19 12:54 eye burning levofloxacin [From Levaquin] AdvReac Intermediate mouth sores Verified 02/28/19 12:54 NSAIDS (Non-Steroidal AdvReac Intermediate ASTHMA Verified 02/28/19 12:54 Anti-Inflamma EXACERBATION simvastatin AdvReac Mild MYALGIAS Verified 02/28/19 12:54 aspirin AdvReac Unknown ASTHMA Verified 02/28/19 12:54 EXACERBATION pseudoephedrine AdvReac Unknown INSOMNIA Verified 02/28/19 12:54 General Stated Complaint: Cellulitis LAMBERTO: 3 Review of Systems Review of Systems All systems reviewed & are unremarkable except as noted in HPI and below Cardiovascular Denies dyspnea Respiratory Denies cough and Denies dyspnea Gastrointestinal Denies abdominal pain Genitourinary Reports as per HPI PFSH Surgical History History of cystoscopy (Acute) Ligation of fallopian tube Repair of inguinal hernia Family History Mother Heart disease Asthma Father Heart disease Cancer Sister RA (rheumatoid arthritis) Heart disease Asthma Brother Asthma Cancer Diabetes Brother Essential hypertension Depression Heart disease Asthma Maternal Grandfather Heart disease Asthma Paternal Grandfather Cancer Maternal Grandmother Diabetes Paternal Grandmother Stroke Son RA (rheumatoid arthritis) Daughter Diabetes Depression Stroke MS (multiple sclerosis) Asthma Social History Smoking/Tobacco Use Status: Former Tobacco Use Alcohol Intake: current Alcohol Intake frequency: 0-2 drinks per day Alcohol type: wine Drug use: Never Substance use type: does not use Caregiver/Support person: No Housing: house Pets and animals: No Sexually active: No Current gender identity: female What is your relationship status?: How often do you talk on the phone with friends or family?: once per week How often do you get together with friends or relatives?: twice per week How often do you attend hindu or nondenominational services?: decline to answer Do you belong to any clubs or organized social groups?: no Panel score (0-1 are the most socially isolated patients): 1 Duration: 15-30 minutes/day Frequency: 3-4 times per week Verito/Mormonism: Sabianism Do you feel safe at home: Yes Do you feel safe in your relationship?: Yes Exam Const General: cooperative and no acute distress HENMT Head: normocephalic Mouth: moist mucous membranes Eyes Conjunctivae: normal conjunctivae Sclera: normal sclerae Neck Neck: trachea midline and supple Resp Auscultation: no rales, rhonchi left lower and no wheezes Cardio Jugular venous pressure: no JVD Rate: regular rate and not tachycardic Rhythm: regular rhythm GI Palpation: soft, not firm, no guarding, no masses, not rigid and nontender Skin General skin exam: no rashes or lesions noted Other: lt inguinal hernia repair site healing well with no erythema or fluctuance, nonttp Neuro General: alert, awake, oriented x3 and tone normal Extrem General: no edema Psych Appearance: grossly normal Mental Status: mental status grossly normal Speech and Movement: speech and movement normal Course Vital Signs Temperature 36.7 C 02/27/19 13:21 Pulse 86 02/27/19 13:21 Respiratory Rate 18 02/27/19 13:21 Blood Pressure 185/72 H 02/27/19 13:21 Pulse Oximetry 97 02/27/19 13:21 Temperature 36.7 C 02/27/19 13:21 Temperature Source Oral 02/27/19 13:21 Pulse 86 02/27/19 13:21 Respiratory Rate 18 02/27/19 13:21 Respiratory Effort Non-Labored 02/27/19 13:25 Blood Pressure 185/72 H 02/27/19 13:21 Blood Pressure Position Supine 02/27/19 13:21 Pulse Oximetry 97 02/27/19 13:21 Oxygen Delivery Method Room Air 02/27/19 13:21 Oxygen Flow Rate 0 02/27/19 13:21 Pain Level 0 02/27/19 13:21
--- NOTE | 2019-02-27 14:03 | DI.RAD_ITS ---
SYMPTOM/DIAGNOSIS: FEVER AP AND LATERAL CHEST: The heart size is normal. The aorta is mildly tortuous. The lungs are well inflated and clear. No infiltrate or effusion is seen. IMPRESSION: No acute abnormality.
[2019-02-27 14:15] LABS: Abs Immature Grans 0.01 k/cumm (0.0-0.09); Absolute Basophil Count 0.05 k/cumm (0.0-0.2); Absolute Eosinophil Count 0.32 k/cumm (0.0-0.7); Absolute Lymphocyte Count 1.24 k/cumm (1.2-3.4); Absolute Monocyte Count 0.45 k/cumm (0.11-0.7); Absolute Neutrophil Count 4.62 k/cumm (1.2-6.7); Basophils % 0.7; Eosinophils % 4.8; HCT 36.8 % (36.0-46.0); HGB 11.9 g/dL (12.0-15.5); Immature Grans % 0.1; Lymphocytes % 18.5; Mean Corp. HGB Concentration 32.3 g/dL (32.0-36.0); Mean Corpuscular Hemoglobin 31.6 pg (27.0-33.0); Mean Corpuscular Volume 97.6 fL (80-95); Mean Platelet Volume 9.5 fL (8.0-11.0); Monocytes % 6.7; Neutrophils % 69.2; Platelet Count 336 x1000/uL (130-400); RBC 3.77 m/cumm (4.00-5.20); RBC Distribution Width 13.3 % (11.7-14.6); White Blood Cell Count 6.69 k/cumm (4.4-10.8)
[2019-02-27 14:17] LABS: Bilirubin Negative (Negative); Blood Small (Negative); Clarity Clear; Glucose Negative (Negative); Ketones Negative (Negative); Leukocyte Esterase Negative (Negative); Nitrite Negative (Negative); Specific Gravity <= 1.005 (1.005-1.025); Urobilinogen 0.2 EU/dL (Up TO 0.2); pH 5.5 (5-8)
[2019-02-27 14:18] LABS: Bacteria Negative HPF (Negative); C & S Indicated? No; Casts Negative LPF (Negative); Crystals Negative HPF (Negative); Epithelial Cells Negative HPF (Negative); Mucus Negative (Negative); Other Cells Rare Transitional (Negative); RBC 0-2 (0-2); WBC Negative HPF (0-5)
[2019-02-27 14:44] LABS: ALT 20 U/L (12-78); AST 22 U/L (15-37); Albumin 3.3 g/dL (3.4-5.0); Alkaline Phosphatase 80 U/L (46-116); Anion Gap 10.1 mmol/L (3-11); BUN 11 mg/dL (7-18); Bilirubin, Total 0.4 mg/dL (0.2-1.0); CO2 27.9 mmol/L (21.0-32.0); CREATININE 0.71 mg/dL (0.55-1.02); Calcium 9.2 mg/dL (8.5-10.1); Chloride 103 mmol/L (98-107); Glucose 147 mg/dL (70-100); Magnesium 1.5 mg/dL (1.8-2.4); Potassium 3.7 mmol/L (3.5-5.1); Sodium 141 mmol/L (136-145)
[2019-02-27 14:47] LABS: Troponin I < 0.02 ng/mL (0.00-0.06)
--- NOTE | 2019-02-27 15:03 | DI.VRAD_ITS ---
EXAM: XR Chest, 2 Views EXAM DATE/TIME: 02/27/2019 2:05 PM CLINICAL HISTORY: 78 years old, female; Signs and symptoms; Fever TECHNIQUE: Imaging protocol: XR of the chest, 2 views. COMPARISON: No relevant prior studies available. FINDINGS: Lungs: Unremarkable. No consolidation. Pleural space: Unremarkable. No pleural effusion. No pneumothorax. Heart/Mediastinum: Mild cardiomegaly. Vasculature: Aortic ectasia. Bones/joints: Unremarkable. IMPRESSION: No evidence for acute abnormality in the chest. COMMENT: Preliminary interpretation is based on receipt of 2 image(s). A final report will be issued subsequently. Dictated and Authenticated by: Alexia Borja MD. Ordering:MEI Dow MD
[2019-02-27] MEDS: Lactated Ringers 500 ML IV (15:55)
[2019-02-27] MEDS: Magnesium Oxide 400 MG TAB 800 MG PO (16:00)
== END 2019-02-27 15:55 | disposition home or self-care (01) ==
PROVIDERS: Emergency Provider Student in an Organized Health Care Education/Training Program; PCP Family Medicine
DX: R53.1 Weakness (principal); J44.9 Chronic obstructive pulmonary disease, unspecified; Z98.890 Other specified postprocedural states
CPT/HCPCS: 36415; 80053; 93005; 96361; 96374; 99285; 71046; 81003; 81015; 83735; 84484; 85025; 93010

== ENCOUNTER → 2019-02-28 12:40 | Outpatient (BNVA) | payer MEDICARE, SELFPAY | PROVIDERS: PCP Family Medicine; Referring Provider Family Medicine; Visit Provider Surgery | DX: Z48.815 Encounter for surgical aftercare following surgery on the digestive system (principal); Z87.19 Personal history of other diseases of the digestive system ==

== ENCOUNTER 2019-02-28 13:27 | Outpatient (CLI) | payer MEDICARE, SELFPAY ==
[2019-02-28 13:52] LABS: Bilirubin Negative (Negative); Blood Moderate (Negative); Clarity Clear; Glucose Negative (Negative); Ketones Negative (Negative); Leukocyte Esterase Negative (Negative); Nitrite Negative (Negative); Specific Gravity <= 1.005 (1.005-1.025); Urobilinogen 0.2 EU/dL (Up TO 0.2); pH 5.5 (5-8)
[2019-02-28 14:40] LABS: Epithelial Cells Few HPF (Negative); RBC 0-2 (0-2); WBC 0-2 HPF (0-5)
[2019-02-28 14:41] LABS: Bacteria Negative HPF (Negative); C & S Indicated? No; Casts Negative LPF (Negative); Crystals Negative HPF (Negative); Mucus Negative (Negative)
== END 2019-02-28 13:47 ==
PROVIDERS: PCP Family Medicine; Visit Provider Surgery
DX: Z87.19 Personal history of other diseases of the digestive system (principal); Z98.890 Other specified postprocedural states; I10 Essential (primary) hypertension; R82.90 Unspecified abnormal findings in urine; Z48.815 Encounter for surgical aftercare following surgery on the digestive system; R19.7 Diarrhea, unspecified; D64.9 Anemia, unspecified; R53.83 Other fatigue; R77.0 Abnormality of albumin
CPT/HCPCS: 81003; 81015

== ENCOUNTER 2019-02-28 18:20 | Outpatient (REF) | payer MEDICARE, SELFPAY | END 2019-02-28 18:40 | LOC: LBN 18:20 | PROVIDERS: PCP Family Medicine; Visit Provider Surgery | DX: R19.7 Diarrhea, unspecified (principal) | CPT/HCPCS: 87324 ==

== ENCOUNTER 2019-10-26 02:30 | Outpatient (CLI) | payer MEDICARE, OTHER, SELFPAY ==
[2019-10-26 12:58] LABS: Abs Immature Grans 0.01 k/cumm (0.0-0.09); Absolute Basophil Count 0.06 k/cumm (0.0-0.2); Absolute Eosinophil Count 0.25 k/cumm (0.0-0.7); Absolute Lymphocyte Count 1.17 k/cumm (1.2-3.4); Absolute Monocyte Count 0.65 k/cumm (0.11-0.7); Absolute Neutrophil Count 5.18 k/cumm (1.2-6.7); Basophils % 0.8; Eosinophils % 3.4; HCT 37.4 % (36.0-46.0); Immature Grans % 0.1 %; Mean Corp. HGB Concentration 32.1 g/dL (32.0-36.0); Mean Corpuscular Hemoglobin 31.8 pg (27.0-33.0); Mean Corpuscular Volume 99.2 fL (80-95); Mean Platelet Volume 9.6 fL (8.0-11.0); Monocytes % 8.9; Neutrophils % 70.8; Platelet Count 326 x1000/uL (130-400); RBC 3.77 m/cumm (4.00-5.20); RBC Distribution Width 13.1 % (11.7-14.6); White Blood Cell Count 7.32 k/cumm (4.4-10.8)
[2019-10-26 13:20] LABS: ALT 16 U/L (14-59); AST 16 U/L (15-37); Albumin 3.3 g/dL (3.4-5.0); Alkaline Phosphatase 82 U/L (46-116); Anion Gap 9.1 mmol/L (3-11); BUN 8 mg/dL (7-18); Bilirubin, Total 0.6 mg/dL (0.2-1.0); CO2 28.9 mmol/L (21.0-32.0); CREATININE 0.77 mg/dL (0.55-1.02); Calcium 8.8 mg/dL (8.5-10.1); Chloride 106 mmol/L (98-107); Glucose 89 mg/dL (74-106); Potassium 4.2 mmol/L (3.5-5.1); Sodium 144 mmol/L (136-145); Total Protein 6.5 g/dL (6.4-8.2)
[2019-10-26 13:21] LABS: Hemoglobin A1C 5.9 % (3.8-5.6)
== END 2019-10-26 02:50 ==
PROVIDERS: PCP Family Medicine; Visit Provider Family Medicine
DX: R73.9 Hyperglycemia, unspecified (principal); S81.801D Unspecified open wound, right lower leg, subsequent encounter
CPT/HCPCS: 36415; 80053; 83036; 85025

== ENCOUNTER 2019-11-09 01:40 | Outpatient (CLI) | payer MEDICARE, OTHER, SELFPAY ==
--- NOTE | 2019-11-09 08:30 | DI.RAD_ITS ---
EXAM: XR TIB/FIB RT INDICATION: Traumatic wound with delayed healing RLL, [id number]. COMPARISON: No exams were available for comparison TECHNIQUE: 2D digital imaging was performed. FINDINGS: There is edema in the soft tissues of the lower leg. No abnormal gas collection is seen. There is n o evidence of fracture or bony erosion. The knee and ankle joints are unremarkable as visualized. IMPRESSION: Soft tissue edema. No bony abnormalities are seen. DATA REPOSITORY: RADIATION DOSE DELIVERED:
== END 2019-11-09 02:00 ==
PROVIDERS: PCP Family Medicine; Visit Provider Family Medicine
DX: S81.801D Unspecified open wound, right lower leg, subsequent encounter (principal); R60.0 Localized edema
CPT/HCPCS: 73590

== ENCOUNTER 2020-12-26 03:05 | Outpatient (CLI) | payer MEDICARE, OTHER, SELFPAY ==
[2020-12-26 12:37] LABS: Anion Gap 6.4 mmol/L (3-11); BUN 12 mg/dL (7-18); CO2 30.6 mmol/L (21.0-32.0); CREATININE 0.9 mg/dL (0.55-1.02); Calcium 8.9 mg/dL (8.5-10.1); Chloride 106 mmol/L (98-107); Glucose 84 mg/dL (74-106); Potassium 4.2 mmol/L (3.5-5.1); Sodium 143 mmol/L (136-145)
[2020-12-26 12:44] LABS: Hemoglobin A1C 5.7 % (<5.7)
== END 2020-12-26 03:06 | disposition home or self-care (01) ==
LOC: LOS 03:06
PROVIDERS: Family Medicine; PCP Family Medicine; Visit Provider Nurse Practitioner
DX: I10 Essential (primary) hypertension (principal); R73.03 Prediabetes
CPT/HCPCS: 36415; 80048; 83036

== ENCOUNTER 2021-05-22 04:00 | Outpatient (CLI) | payer MEDICARE, OTHER, SELFPAY ==
[2021-05-22 12:43] LABS: HCT 37.8 % (36.0-46.0); HGB 11.9 g/dL (11.2-15.7); MCH 31.5 pg (27.0-33.0); MCHC 31.5 % (32.0-36.0); Platelet Count 283 10^3/uL (130-400); RBC 3.78 10^6/uL (3.93-5.22); RDW 13.5 % (11.7-14.6); RDW-SD 49.4 fL; WBC 8.83 10^3/uL (4.4-10.8)
[2021-05-22 12:59] LABS: ALT 17 U/L (14-59); AST 14 U/L (15-37); Albumin 3.6 g/dL (3.4-5.0); Alkaline Phosphatase 90 U/L (46-116); Bilirubin, Direct 0.1 mg/dL (0.0-0.2); Bilirubin, Total 0.4 mg/dL (0.2-1.0); Total Protein 6.8 g/dL (6.4-8.2)
[2021-05-22 13:13] LABS: PTT Activated 22.1 sec (21.0-27.5); Prothrombin Time 9.9 sec (9.3-11.0)
== END 2021-05-22 04:01 | disposition home or self-care (01) ==
LOC: LOS 04:00
PROVIDERS: PCP Nurse Practitioner; Visit Provider Nurse Practitioner
DX: R23.3 Spontaneous ecchymoses (principal); I10 Essential (primary) hypertension; L03.115 Cellulitis of right lower limb
CPT/HCPCS: 36415; 80076; 85027; 85610; 85730

== ENCOUNTER 2021-11-28 13:47 | Outpatient (CLI) | payer MEDICARE, OTHER, SELFPAY ==
[2021-11-28 14:55] LABS: Abs Immature Grans 0.04 10^3/uL (0.0-0.06); Absolute Basophil Count 0.06 10^3/uL (0.0-0.2); Absolute Eosinophil Count 0.21 10^3/uL (0.0-0.7); Absolute Lymphocyte Count 1.33 10^3/uL (1.2-3.4); Basophils % 0.6; Eosinophils % 2.1; HCT 34.9 % (36.0-46.0); HGB 11.2 g/dL (11.2-15.7); Immature Grans % 0.4; Lymphocytes % 13.1; MCH 31.5 pg (27.0-33.0); MCHC 32.1 % (32.0-36.0); Monocytes % 5.9; Neutrophils % 77.9; Nucleated RBC 0 %; Platelet Count 395 10^3/uL (130-400); RBC 3.56 10^6/uL (3.93-5.22); RDW 13.5 % (11.7-14.6); RDW-SD 49.1 fL; WBC 10.14 10^3/uL (4.4-10.8)
[2021-11-28 16:05] LABS: ALT 15 U/L (14-59); AST 17 U/L (15-37); Albumin 3.5 g/dL (3.4-5.0); Alkaline Phosphatase 105 U/L (46-116); Anion Gap 8.8 mmol/L (3-11); BUN 11 mg/dL (7-18); Bilirubin, Total 0.4 mg/dL (0.2-1.0); CO2 26.2 mmol/L (21.0-32.0); CREATININE 0.9 mg/dL (0.55-1.02); Calcium 8.7 mg/dL (8.5-10.1); Chloride 108 mmol/L (98-107); Glucose 93 mg/dL (74-106); Potassium 4.3 mmol/L (3.5-5.1); Sodium 143 mmol/L (136-145); Total Protein 7.1 g/dL (6.4-8.2)
== END 2021-11-28 13:48 | disposition home or self-care (01) ==
LOC: LBO 13:51
PROVIDERS: PCP Nurse Practitioner; Visit Provider Nurse Practitioner
DX: L97.812 Non-pressure chronic ulcer of other part of right lower leg with fat layer exposed (principal)
CPT/HCPCS: 36415; 80053; 85025

== ENCOUNTER 2022-01-22 16:26 | Outpatient (REF) | payer MEDICARE, OTHER, SELFPAY ==
[2022-01-23 15:04] LABS: COVID-19 RT-PCR UVMMC Result Negative (Negative)
== END 2022-01-22 16:27 | disposition home or self-care (01) ==
LOC: LBN 16:26
PROVIDERS: PCP Nurse Practitioner; Visit Provider Nurse Practitioner
DX: Z20.822 Contact with and (suspected) exposure to COVID-19 (principal); Z01.818 Encounter for other preprocedural examination
CPT/HCPCS: U0003; U0005

== ENCOUNTER 2022-03-19 18:40 | Outpatient (REF) | payer MEDICARE, OTHER, SELFPAY ==
[2022-03-21 11:23] LABS: COVID-19 RT-PCR UVMMC Result Negative (Negative)
== END 2022-03-19 18:41 | disposition home or self-care (01) ==
LOC: LBN 18:40
PROVIDERS: PCP Nurse Practitioner; Visit Provider Nurse Practitioner
DX: Z20.822 Contact with and (suspected) exposure to COVID-19 (principal); Z01.818 Encounter for other preprocedural examination
CPT/HCPCS: U0003

== ENCOUNTER 2022-10-21 11:42 | Outpatient (REF) | payer MEDICARE, OTHER, SELFPAY ==
[2022-10-21 13:21] LABS: Abs Immature Grans 0.02 10^3/uL (0.0-0.06); Absolute Basophil Count 0.08 10^3/uL (0.0-0.2); Absolute Eosinophil Count 0.28 10^3/uL (0.0-0.7); Absolute Lymphocyte Count 1.26 10^3/uL (1.2-3.4); Absolute Monocyte Count 0.55 10^3/uL (0.1-0.8); Absolute Neutrophil Count 6.11 10^3/uL (1.2-6.7); Eosinophils % 3.4; HCT 37.1 % (36.0-46.0); HGB 11.7 g/dL (11.2-15.7); Immature Grans % 0.2; Lymphocytes % 15.2; MCH 31.3 pg (27.0-33.0); MCHC 31.5 % (32.0-36.0); MCV 99 fL (80-95); MPV 9.9 fL (8.0-11.0); Monocytes % 6.6; Neutrophils % 73.6; Platelet Count 296 10^3/uL (130-400); RBC 3.74 10^6/uL (3.93-5.22); RDW 14.6 % (11.7-14.6); RDW-SD 53.6 fL
[2022-10-21 13:32] LABS: ALT 16 U/L (14-59); AST 22 U/L (15-37); Albumin 3.6 g/dL (3.4-5.0); Alkaline Phosphatase 96 U/L (46-116); Anion Gap 5.9 mmol/L (3-11); BUN 13 mg/dL (7-18); Bilirubin, Total 0.7 mg/dL (0.2-1.0); CO2 32.1 mmol/L (21.0-32.0); Calcium 9.2 mg/dL (8.5-10.1); Chloride 107 mmol/L (98-107); Estimated GFR 56.25 (mL/min/1.73m2); Glucose 133 mg/dL (74-106); Potassium 4.1 mmol/L (3.5-5.1); Sodium 145 mmol/L (136-145)
== END 2022-10-21 11:43 | disposition home or self-care (01) ==
LOC: LBN 11:42
PROVIDERS: PCP Nurse Practitioner Family; Visit Provider Physician Assistant
DX: R60.0 Localized edema (principal); L98.8 Other specified disorders of the skin and subcutaneous tissue; L97.821 Non-pressure chronic ulcer of other part of left lower leg limited to breakdown of skin; R73.03 Prediabetes
CPT/HCPCS: 80053; 87077; 85025; 87070; 87186; 87205

== ENCOUNTER 2023-01-21 15:51 | Outpatient (REF) | payer MEDICARE, OTHER, SELFPAY ==
[2023-01-21 21:02] LABS: Bilirubin Negative (Negative); Blood Moderate (Negative); Clarity Sl Cloudy (Clear); Glucose Negative (Negative); Ketones Negative (Negative); Leukocyte Esterase Small (Negative); Nitrite Negative (Negative); Specific Gravity >= 1.030 (1.005-1.025); Urobilinogen 0.2 mg/dL (Up to 0.2); pH 5.5 (5-8)
[2023-01-21 21:15] LABS: Bacteria Few HPF (Negative); C & S Indicated? Yes; Crystals Negative HPF (Negative); Epithelial Cells Few HPF (Negative); Mucus Negative (Negative); WBC >50 HPF (0-5)
== END 2023-01-21 15:52 | disposition home or self-care (01) ==
LOC: LBN 15:51
PROVIDERS: PCP Nurse Practitioner Family; Visit Provider Physician Assistant
DX: R39.15 Urgency of urination (principal); R35.0 Frequency of micturition; R30.0 Dysuria; N39.0 Urinary tract infection, site not specified
CPT/HCPCS: 87077; 81003; 81015; 87086; 87186

== ENCOUNTER 2023-02-10 16:12 | Outpatient (REF) | payer MEDICARE, OTHER, SELFPAY | END 2023-02-10 16:13 | disposition home or self-care (01) | LOC: LBN 16:12 | PROVIDERS: PCP Nurse Practitioner Family; Visit Provider Physician Assistant | DX: J02.9 Acute pharyngitis, unspecified (principal) | CPT/HCPCS: 87070 ==

== ENCOUNTER 2023-03-12 21:20 | Outpatient (REF) | payer MEDICARE, SELFPAY ==
[2023-03-12 21:46] LABS: ESR 38 mm/hr (0-30)
[2023-03-12 21:50] LABS: C-Reactive Protein 5.51 mg/dL (0.0-0.3)
[2023-03-13 19:28] LABS: Rheumatoid Factor <8.6 IU/mL (<12.0)
== END 2023-03-12 21:21 | disposition home or self-care (01) ==
LOC: LBN 21:20
PROVIDERS: PCP Nurse Practitioner Family; Visit Provider Nurse Practitioner Family
DX: M19.90 Unspecified osteoarthritis, unspecified site (principal); R41.89 Other symptoms and signs involving cognitive functions and awareness
CPT/HCPCS: 85652; 86140; 86431

== ENCOUNTER 2023-04-18 15:39 | Emergency (ER) | payer MEDICARE, SELFPAY ==
[2023-04-18 15:45] VITALS: BP 137/63; PULSE 90; RESP 20; TEMP 36.8; O2SAT 97
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
[2023-04-18] MEDS: Potassium Chloride 10 MEQ TABCR PO (16:25)
[2023-04-18] MEDS: Furosemide 20 MG TAB 10 MG PO (16:25)
== END 2023-04-18 16:30 | disposition home or self-care (01) ==
PROVIDERS: Emergency Provider Nurse Practitioner Family; PCP Nurse Practitioner Family
DX: S80.821A Blister (nonthermal), right lower leg, initial encounter; X58.XXXA Exposure to other specified factors, initial encounter; R60.0 Localized edema
CPT/HCPCS: 99283

== ENCOUNTER → 2023-05-01 01:53 | Outpatient (CLI) | payer MEDICARE, SELFPAY ==
--- NOTE | 2023-05-01 07:30 | DI.US_ITS ---
Exam(s) US LOWER EXTREMITY VENOUS RT EXAM: US LOWER EXTREMITY VENOUS RT CLINICAL HISTORY: right leg swelling,R60.0 TECHNIQUE: Grayscale, color, and doppler imaging of the deep venous system of the right lower extrem ity was performed. COMPARISON: US US OR ANESTHESIA from 02/15/2019 FINDINGS: There is no evidence of intraluminal thrombus and there is normal compression and augmentation demons trated within the common femoral vein, femoral vein, and popliteal vein. In the ipsilateral calf the interrogated veins also exhibit normal compression/ augmentation properti es. The ipsilateral saphenofemoral junction is patent. IMPRESSION: 1. No evidence of DVT in the right lower extremity. DATA REPOSITORY:
== END ==
PROVIDERS: PCP Nurse Practitioner Family; Visit Provider Physician Assistant
DX: R60.0 Localized edema (principal)
CPT/HCPCS: 93971

== ENCOUNTER 2023-06-29 22:53 | Outpatient (REF) | payer MEDICARE, SELFPAY ==
[2023-06-29 21:23] LABS: Bilirubin Negative (Negative); Blood Small (Negative); Clarity Clear (Clear); Glucose Negative (Negative); Ketones Negative (Negative); Leukocyte Esterase Negative (Negative); Nitrite Negative (Negative); Specific Gravity <= 1.005 (1.005-1.025); Urobilinogen 0.2 mg/dL (Up to 0.2); pH 5.5 (5-8)
[2023-06-29 21:35] LABS: Bacteria Negative HPF (Negative); C & S Indicated? No; Casts Negative LPF (Negative); Crystals Negative HPF (Negative); Epithelial Cells Rare HPF (Negative); Mucus Negative (Negative); RBC 0-2 HPF (0-2); WBC Negative HPF (0-5)
== END 2023-06-29 22:54 | disposition home or self-care (01) ==
LOC: LBN 22:53
PROVIDERS: PCP Nurse Practitioner Family; Visit Provider Nurse Practitioner Family
DX: M54.9 Dorsalgia, unspecified (principal); R82.998 Other abnormal findings in urine
CPT/HCPCS: 81003; 81015

== ENCOUNTER 2023-07-10 08:24 | Emergency (ER) | payer MEDICARE, SELFPAY ==
[2023-07-10 08:33] VITALS: BP 146/53; PULSE 95; RESP 16; TEMP 37.1; O2SAT 96
--- NOTE | 2023-07-10 08:40 | DI.CT_ITS ---
Exam(s) CT HEAD CERVICAL SPINE WO EXAM: CT HEAD CERVICAL SPINE WO CLINICAL HISTORY: neck laceration. TECHNIQUE: Imaging Protocol: Axial computed tomography images with coronal and sagittal reformatted images were created and reviewed COMPARISON: No exams were available for comparison FINDINGS: Head CT Ventricles and Extra axial spaces: Normal in size and morphology for the patient's age. Hemorrhage: None. Cerebral parenchyma: Normal. Midline shift: None. Brainstem/Cerebellum: Normal. Calvarium: Normal. Visualized Paranasal sinuses/Mastoids: Clear. Soft tissues: Unremarkable. Cervical Spine CT BONES: Vertebral body heights are maintained. Alignment is normal. There is no evidence of acute frac ture. Degenerative disc changes and facet degenerative changes are seen . SOFT TISSUES: No neck laceration is visible by CT. No soft tissue air or foreign body. No paraspina l hematoma. The airway appears intact. No pneumothorax is seen at the lung apices. IMPRESSION: Head CT: No acute abnormality. C-spine CT: Degenerative changes, no acute abnormality. RADIATION DOSE DELIVERED: Total DLP DATA REPOSITORY: All CT scans at this facility are submitted to the National Radiology Data Registry (NRDR) Dose Index Registry (DIR) with the [employer] (ACR). RADIATION OPTIMIZATION: All CT scans at this facility use at least one of these dose optimization te chniques: automated exposure control; mA and/or kV adjustment per patient size (includes targeted exa ms where dose is matched to clinical indication); or iterative reconstruction.
--- NOTE | 2023-07-10 09:11 | ED.GENADUL_ITS ---
Discharge Plan Disposition Patient Disposition: Home Condition: Good Discharge Details Clinical Impression: Abrasion, Fall, Neck abrasion Primary Care Provider: Cait Aguiar ED Provider: Radha Morgan Home Meds and New Rx's Prescriptions: New (DME) Xeroform Petrolatum Dressing 2 X 2 bandage See Rx Instructions .Route Qty: 150 0RF Rx Instructions: As directed No Action furosemide 20 mg tablet 20 mg PO DAILY Qty: 90 1RF fluticasone propionate 50 mcg/actuation spray,suspension 1 spray NS BID PRN (Reason: allergy symptoms) Qty: 16 4RF Mag 64 64 MG tablet,delayed release (DR/EC) 64 mg PO BID Patient Comments: 02/27/19 er--currently on hold biotin 1 MG tablet 1 mg PO DAILY cholecalciferol (vitamin D3) 5,000 UNIT tablet 5,000 unit PO DAILY Lac-Hydrin Five 5 % lotion 1 applic topical DAILY Qty: 226 0RF montelukast [Singulair] 10 mg tablet 10 mg PO DAILY Qty: 90 4RF fluticasone propion-salmeterol [Advair HFA] 45-21 mcg/actuation HFA aerosol inhaler 2 puff inhalation BID Qty: 12 3RF albuterol sulfate 90 mcg/actuation HFA aerosol inhaler 2 puff inhalation QID PRN (Reason: shortness of breath or wheezing) Qty: 8.5 4RF amlodipine 5 mg tablet 5 mg PO DAILY Qty: 90 4RF omeprazole 20 mg capsule,delayed release(DR/EC) See Rx Instructions .ROUTE .COMPLEX Qty: 90 3RF Dose Instruction: TAKE ONE CAPSULE BY MOUTH ONCE DAILY Rx Instructions: TAKE ONE CAPSULE BY MOUTH ONCE DAILY (DME) Mepilex 4 X 4 bandage See Rx Instructions .Route Qty: 5 3RF Rx Instructions: change bandage twice weekly Discharge Instructions Instructions: Head Injury (ED), Abrasion (ED), Skin Tear (ED) Referrals: Cait Aguiar NP [Primary Care Provider] - 3 days Discharge Data Discharge Physician: Radha Morgan Medical Decision Making 83-year-old female presents for evaluation after mechanical fall. She is got a large skin tear to her left anterior neck as well as an abrasion to her left knee. She is neurologically intact. NIH stroke score equals 0. Will obtain CT of head and cervical spine. On review of records her last tetanus was in May 2022. Xeroform dressing will be applied to neck wound. Bandage applied to left knee. CT head and neck unremarkable. CT head and neck unremarkable. Patient and family instructed on wound care. Given instructions on head injury. They understand indications to return. HPI General Date/Time Provider Initiated Documentation: 07/10/23 08:25 . HPI Narrative: 83-year-old female presents for evaluation after mechanical fall. Patient was attempting to ambulate over the threshold when she did not lift her foot high enough. Patient scraped the left anterior neck and has a large skin tear. She denies hitting her head or losing consciousness. She is not on any blood th inners. She does have an abrasion to her left knee. Denies any chest pain or shortness of breath. No cough or cold. No numbness or tingling in his extremities. No weakness in her extremities. Unknown last tetanus. Related Data Home Medications Medication Instructions Recorded Confirmed magnesium chloride 64 mg 64 mg PO BID 03/25/13 07/10/23 (magnesium chloride) tablet,delayed release (Mag 64) biotin 1 mg tablet 1 mg PO DAILY 08/13/16 07/10/23 cholecalciferol (vitamin D3) 125 5,000 unit PO DAILY 08/13/16 07/10/23 mcg (5,000 unit) tablet fluticasone propionate 50 1 spray NS BID PRN allergy 12/03/21 07/10/23 mcg/actuation nasal symptoms #16 grams spray,suspension ammonium lactate 5 % lotion 1 applic topical DAILY #226 grams 04/08/22 06/29/23 (Lac-Hydrin Five) montelukast 10 mg tablet 10 mg PO DAILY #90 tab-caps 08/12/22 07/10/23 (Singulair) fluticasone propionate 45 2 puff inhalation BID #12 grams 12/09/22 07/10/23 mcg-salmeterol 21 mcg/actuation HFA inhaler (Advair HFA) albuterol sulfate 90 mcg/actuation 2 puff inhalation QID PRN 02/19/23 07/10/23 aerosol inhaler shortness of breath or wheezing #8.5 grams amlodipine 5 mg tablet 5 mg PO DAILY #90 tabs 03/30/23 07/10/23 omeprazole 20 mg capsule,delayed See Rx Instructions .Route 06/01/23 07/10/23 release .COMPLEX #90 caps foam bandage 4 X 4 (Mepilex) #5 ea 06/15/23 06/29/23 furosemide 20 mg tablet 20 mg PO DAILY #90 tabs 06/29/23 07/10/23 bismuth tribrom-petrolatum,wh 2 X #150 ea 07/10/23 2 bandage (Xeroform Petrolatum Dressing) Previous Rx's Medication Instructions Recorded fluticasone propionate 50 1 spray NS BID PRN allergy 12/03/21 mcg/actuation nasal symptoms #16 grams spray,suspension ammonium lactate 5 % lotion 1 applic topical DAILY #226 grams 04/08/22 (Lac-Hydrin Five) montelukast 10 mg tablet 10 mg PO DAILY #90 tab-caps 08/12/22 (Singulair) fluticasone propionate 45 2 puff inhalation BID #12 grams 12/09/22 mcg-salmeterol 21 mcg/actuation HFA inhaler (Advair HFA) albuterol sulfate 90 mcg/actuation 2 puff inhalation QID PRN 02/19/23 aerosol inhaler shortness of breath or wheezing #8.5 grams amlodipine 5 mg tablet 5 mg PO DAILY #90 tabs 03/30/23 omeprazole 20 mg capsule,delayed See Rx Instructions .Route 06/01/23 release .COMPLEX #90 caps foam bandage 4 X 4 (Mepilex) #5 ea 06/15/23 furosemide 20 mg tablet 20 mg PO DAILY #90 tabs 06/29/23 bismuth tribrom-petrolatum,wh 2 X #150 ea 07/10/23 2 bandage (Xeroform Petrolatum Dressing) Allergies Allergy/AdvReac Type Severity Reaction Status Date / Time cephalexin Allergy Severe SKIN RASH Verified 07/10/23 08:40 Penicillins Allergy Intermediate SKIN RASH Verified 07/10/23 08:40 erythromycin base Allergy Unknown Verified 07/10/23 08:40 benzonatate AdvReac Intermediate migraine, Verified 06/29/23 16:40 eye burning levofloxacin [From Levaquin] AdvReac Intermediate mouth sores Verified 07/10/23 08:40 NSAIDS (Non-Steroidal AdvReac Intermediate ASTHMA Verified 07/10/23 08:40 Anti-Inflamma EXACERBATION simvastatin AdvReac Mild MYALGIAS Verified 07/10/23 08:40 aspirin AdvReac Unknown ASTHMA Verified 07/10/23 08:40 EXACERBATION pseudoephedrine AdvReac Unknown INSOMNIA Verified 07/10/23 08:40 General Stated Complaint: Trauma LAMBERTO: 3 Review of Systems Narrative: Remainder of review of systems otherwise negative except for as noted in the HPI x10. PFSH All Active Problems (Updated 07/10/23 @ 10:21 by Radha Morgan MD) Neck abrasion (Acute) Fall (Acute) Abrasion (Acute) Arthritis (Acute) Skin ulcer (Acute) Leg edema (Chronic) Pruritic disorder (Acute) Prediabetes (Acute) Cellulitis (Chronic) Eczema (Chronic) HTN (hypertension) (Chronic) Varicose veins of lower extremity (Acute) Total urinary incontinence (Acute) Mild persistent asthma without complication (Acute 03/19/18) Gastroesophageal reflux disease (Acute) Depressive disorder (Acute 08/03/13) Chronic obstructive lung disease (Acute) Medical History Skin tag 02/02- flesh color under right eye Superficial partial thickness burn of back excluding buttock Bruising Non-toxic uninodular goiter Hyperlipidemia Surgical History History of bilateral ligation of fallopian tubes Status post inguinal hernia repair History of cystoscopy hx UTI Ligation of fallopian tube Repair of inguinal hernia left, direct, Dr Nicole Shelley, [facility] Family History Mother , age 70 Heart disease Asthma Father , age 65 Heart disease Cancer Sister , age 74 RA (rheumatoid arthritis) Heart disease Asthma Brother , 63 Asthma Cancer Diabetes Brother Essential hypertension Depression Heart disease Asthma Maternal Grandfather , 85 Heart disease Asthma Paternal Grandfather , DROWNED at age 81. Cancer Maternal Grandmother , in her 80s Diabetes Paternal Grandmother , 70 Stroke Son RA (rheumatoid arthritis) Daughter Diabetes Depression Stroke MS (multiple sclerosis) Asthma Social History Smoking/Tobacco Use Status: Current-Occasional Tobacco Type: cigarettes Quit status: quit date established Second Hand Exposure: Yes Smoking risk assessment performed?: Yes Alcohol Intake: current Alcohol Intake frequency: holidays/special occasions only Alcohol type: wine Drug use: Never Substance use type: does not use Caregiver/Support person: No Household members: none Housing: house Communication Needs: Corrective Lenses Do you need help understanding health information?: Never Pets and animals: No Sexually active: No What is your relationship status?: How often do you talk on the phone with friends or family?: three or more times per week How often do you get together with friends or relatives?: decline to answer How often do you attend sabianism or faith services?: decline to answer Do you belong to any clubs or organized social groups?: no Panel score (0-1 are the most socially isolated patients): 1 What type of physical activity do you participate in: none Frequency: does not exercise Verito/Congregation: None Special verito needs: No Seatbelt use: always Helmet use: No 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 no wheezes, rales, rhonchi, or retractions Abd: soft, non-tender, non-distended, normal bowel sounds, no rebound or guarding, no peritoneal signs Musculoskeletal: No vertebral tenderness, pelvis stable, small abrasion to left anterior knee, able to fully range otherwise full range of motion of arms and legs, no tenderness to palpation. no clubbing, cyanosis, or edema Neurologic: GSC 15, CN 2-12 intact bilaterally, speech normal, strength normal, sensation intact distally in all four extremities, 2+ biceps tendon reflexes, normal finger to nose, normal rapid alternating movements, no pronator drift Psych: alert and oriented Skin: As above, otherwise no petechiae, no lesions, warm and dry Course Vital Signs Vital signs: Vital Signs Temperature 37.1 C 07/10/23 08:33 Pulse 95 H 07/10/23 08:33 Respiratory Rate 16 07/10/23 08:33 Blood Pressure 146/53 H 07/10/23 08:33 Pulse Oximetry 96 07/10/23 08:33 Temperature 37.1 C 07/10/23 08:33 Temperature Source Tympanic 07/10/23 08:33 Pulse 95 H 07/10/23 08:33 Respiratory Rate 16 07/10/23 08:33 Respiratory Effort Normal, Non-Labored 07/10/23 08:38 Blood Pressure 146/53 H 07/10/23 08:33 Pulse Oximetry 96 07/10/23 08:33 Oxygen Delivery Method Room Air 07/10/23 08:33 Oxygen Flow Rate 0 07/10/23 08:33
== END 2023-07-10 10:37 | disposition home or self-care (01) ==
PROVIDERS: Emergency Provider Emergency Medicine Emergency Medical Services; PCP Nurse Practitioner Family
DX: M25.562 Pain in left knee; S11.91XA Laceration without foreign body of unspecified part of neck, initial encounter; S81.012A Laceration without foreign body, left knee, initial encounter; W01.0XXA Fall on same level from slipping, tripping and stumbling without subsequent striking against object, initial encounter; I10 Essential (primary) hypertension; Z79.899 Other long term (current) drug therapy; Z88.1 Allergy status to other antibiotic agents; Z88.0 Allergy status to penicillin; Z88.8 Allergy status to other drugs, medicaments and biological substances; Z88.6 Allergy status to analgesic agent
CPT/HCPCS: 99284; 70450; 72125; 99283

== ENCOUNTER 2023-07-14 15:43 | Inpatient (IN) | payer MEDICARE, SELFPAY ==
[2023-07-14 15:47] VITALS: BP 94/44; PULSE 104; RESP 24; TEMP 37.3; O2SAT 97
--- NOTE | 2023-07-14 16:00 | RT.EKG_ITS ---
APPROVED REPORT Exam: Resting ECG Reason for Exam: Fall, AMS Patient Location: E HR:104 bpm ECG Measurements Heart Rate 104 AXIS [place] 182 P 23 QRSd 79 QRS -43 QT 339 T -7 QTc 445 Conclusion Sinus tachycardia...rate> 99 Atrial premature complexes...SV complexes w/ short R-R intvls Inferior infarct, old...Q >35mS, II III aVF Anterolateral infarct, age indeterminate...Q >35mS, flat/neg T, V3-V6,I,aVL Narrow complex sinus tachycardia at a rate of 104. Left axis deviation no signs of LVH based on volt age criteria in aVL. [place] and QTc within normal limits. Poor R wave progression. Low voltage. Nikita red to prior poor R wave progression is similar. Low voltage is new. Sinus tachycardia is also new. No voltage criteria for LVH.
[2023-07-14 16:01] VITALS: BP 94/44; PULSE 104; RESP 24; O2SAT 99
--- NOTE | 2023-07-14 16:13 | W.ED.GENAD ---
Discharge Plan Disposition Patient Disposition: Admit to [facility] Condition: Stable Discharge Details Clinical Impression: Weakness, Hypokalemia Admit Date/Time: 07/14/23 18:34 Admit Provider: Vikas Rivera Attending Provider: Vikas Rivera Primary Care Provider: Cait Aguiar ED Provider: Ximena Graham Discharge Data Discharge Date/Time-TO BE ENTERED AT DEPARTURE: 07/14/23 19:47 Medical Decision Making 83-year-old female with a past medical history of lipidemia presents to the ER with a chief complaint of altered mental status, not as active as previous difficulty performing her ADLs since a fall on Thursday. Patient just moved in with her family which are here at the bedside and fell tripped on her slippers with mechanical fall leaning up against a door frame. She did injure her left side of her neck and left shoulder on a door frame. She was seen by her PCP yesterday. She denies any headache or blurry vision however her family states that she did have a headache yesterday. Denies any chest pain shortness of breath. She does have a wound to her left neck, wound to her left anterior knee and bruising and ecchymosis noted to her left barr. She is ANO x4 upon arrival. She is slightly tachycardic with a heart rate of 104 and blood pressure is 94/44. According to the family PCP noted that she is not her normal self and they were unable to get her to have her blood drawn yesterday. She has an order for wound care, home health. Work-up ordered including CBC CMP troponin EKG, CT head and neck without contrast left knee x-ray PT UA. Patient was prescribed Bactrim twice daily x5 days which she began her first dose today by her PCP. CT head and neck canceled and just CT head without contrast ordered due to patient had a CT head and neck on the when she was seen here initially for the fall. CBC shows leukocytosis with a white blood cell count of 13.71, slight left shift with absolute neutrophils 10.73 monocytes 0.86, lactate within normal limits at 1.4 sodium 140 potassium 2.6 which is critically low, glucose 158 magnesium is also low at 1.5 albumin is 2.5. Troponin less than 50. EKG shows no significant change no STEMI. EKG was reviewed by Dr. Vizcaino please see her official report. Gram of magnesium IV piggyback ordered, 40 mill equivalents of potassium liquid p.o. and 10 mill equivalents of IVPB potassium. 1830: Spoke with Dr. Talavera who is on-call for hospitalist regarding patient case in details. When discussed lab results with patient and family they are requesting to be admitted. Dr. Talavera excepted patient for admission. Holding orders placed. Informed patient and family of plan of care, verbalized understanding. Patient transported up to floor in hemodynamically stable condition. Blood pressure is improved. This text was generated using Cloud[employer] system, please disregard any oddities of phrase or misspellings. Medical Records Medical records reviewed: Yes I reviewed the patient's medical records. Imaging Data Radiologic Study: Imaging: CT Scan Radiologist's impression: EXAM: CT HEAD WO CLINICAL HISTORY: AMS, Fall 4 days ago. TECHNIQUE: Imaging Protocol: Axial computed tomography images with coronal and sagittal reformatted images were created and reviewed COMPARISON: CT CT HEAD CERVICAL SPINE WO from 07/10/2023 FINDINGS: Ventricles and Extra axial spaces: Normal in size and morphology for the patient's age. Hemorrhage: None. Cerebral parenchyma: Atrophy. White matter changes consistent with small vessel disease. Midline shift: None. Brainstem/Cerebellum: Normal. Calvarium: Normal. Visualized Paranasal sinuses/Mastoids: Clear. IMPRESSION: No acute abnormality. Radiologic Study #2: Imaging: X-Ray Radiologist's impression: EXAM: XR KNEE LT 3V AP,LAT,SANDEEP CLINICAL HISTORY: Fall, bruising. TECHNIQUE: 2D digital imaging was performed. Three views. COMPARISON: CR XR TIB/FIB RT from 11/09/2019 FINDINGS: BONES: No acute fracture is present. No bony destructive lesion is seen. JOINTS: The knee is normally aligned. No joint effusion is seen. The joint spaces are maintained. Minimal degenerative changes. SOFT TISSUE: Edema. Vascular calcifications. IMPRESSION: Edema. No acute bony abnormality. Lab Data Lab results reviewed: Yes I reviewed the patient's lab results. Labs: 07/14/23 16:42 Blood Blood Culture - Pending 07/14/23 16:25 Blood Blood Culture - Pending Laboratory Tests Range/Units 07/14/23 07/14/23 16:25 16:42 WBC (4.4-10.8) 10^3/uL 13.71 H RBC (3.93-5.22) 10^6/uL 3.65 L Hgb (11.2-15.7) g/dL 11.4 Hct (36.0-46.0) % 34.5 L MCV (80-95) fL 95 MCH (27.0-33.0) pg 31.2 MCHC (32.0-36.0) % 33.0 RDW (11.7-14.6) % 14.4 Plt Count (130-400) 10^3/uL 396 MPV (8.0-11.0) fL 9.1 Immature Gran % 0.3 Neutrophils % 78.3 Lymphocytes % 13.4 Monocytes % 6.3 Eosinophils % 1.2 Basophils % 0.5 Nucleated RBC % (0.0-0.3) % 0.0 Absolute Neutrophils (1.2-6.7) 10^3/uL 10.73 H Absolute Lymphocytes (1.2-3.4) 10^3/uL 1.84 Absolute Monocytes (0.1-0.8) 10^3/uL 0.86 H Absolute Eosinophils (0.0-0.7) 10^3/uL 0.16 Absolute Basophils (0.0-0.2) 10^3/uL 0.07 PT (9.1-11.1) sec 10.2 INR (0.9-1.1) 1.0 VBG Lactate (0.6-1.4) mmol/L 1.4 Sodium (136-145) mmol/L 140 Potassium (3.5-5.1) mmol/L 2.6 L* Chloride (98-107) mmol/L 100 Carbon Dioxide (21.0-32.0) mmol/L 30.5 Anion Gap (3-11) mmol/L 9.5 BUN (7-18) mg/dL 7 Creatinine (0.55-1.02) mg/dL 0.9 Est GFR (CKD-EPI 2020) (mL/min/1.73m2) 63.43 Glucose (74-106) mg/dL 158 H Calcium (8.5-10.1) mg/dL 9.0 Magnesium (1.8-2.4) mg/dL 1.5 L Total Bilirubin (0.2-1.0) mg/dL 0.6 AST (15-37) U/L 16 ALT (14-59) U/L 12 L Alkaline Phosphatase (46-116) U/L 96 Troponin I (<or=60) ng/L < 50 Total Protein (6.4-8.2) g/dL 7.0 Albumin (3.4-5.0) g/dL 2.5 L HPI General Mode of arrival: wheelchair. Date/Time Provider Initiated Documentation: 07/14/23 15:56. Limitations to Documentation: no limitations. Information obtained by: patient, family (Niece and caregiver), RN notes reviewed and old records reviewed. HPI Narrative: 83-year-old female with a past medical history of lipidemia presents to the ER with a chief complaint of altered mental status, not as active as previous difficulty performing her ADLs since a fall on Thursday. Patient just moved in with her family which are here at the bedside and fell tripped on her slippers with mechanical fall leaning up against a door frame. She did injure her left side of her neck and left shoulder on a door frame. She was seen by her PCP yesterday. She denies any headache or blurry vision however her family states that she did have a headache yesterday. Denies any chest pain shortness of breath. She does have a wound to her left neck, wound to her left anterior knee and bruising and ecchymosis noted to her left barr. She is ANO x4 upon arrival. She is slightly tachycardic with a heart rate of 104 and blood pressure is 94/44. Related Data Home Medications Medication Instructions Recorded Confirmed magnesium chloride 64 mg 64 mg PO BID 03/25/13 07/14/23 (magnesium chloride) tablet,delayed release (Mag 64) biotin 1 mg tablet 1 mg PO DAILY 08/13/16 07/14/23 cholecalciferol (vitamin D3) 125 5,000 unit PO DAILY 08/13/16 07/14/23 mcg (5,000 unit) tablet fluticasone propionate 50 1 spray NS BID PRN allergy 12/03/21 07/14/23 mcg/actuation nasal symptoms #16 grams spray,suspension ammonium lactate 5 % lotion 1 applic topical DAILY #226 grams 04/08/22 07/14/23 (Lac-Hydrin Five) montelukast 10 mg tablet 10 mg PO DAILY #90 tab-caps 08/12/22 07/14/23 (Singulair) fluticasone propionate 45 2 puff inhalation BID #12 grams 12/09/22 07/14/23 mcg-salmeterol 21 mcg/actuation HFA inhaler (Advair HFA) albuterol sulfate 90 mcg/actuation 2 puff inhalation QID PRN 02/19/23 07/14/23 aerosol inhaler shortness of breath or wheezing #8.5 grams amlodipine 5 mg tablet 5 mg PO DAILY #90 tabs 03/30/23 07/14/23 omeprazole 20 mg capsule,delayed See Rx Instructions .Route 06/01/23 07/14/23 release .COMPLEX #90 caps foam bandage 4 X 4 (Mepilex) #5 ea 06/15/23 07/13/23 furosemide 20 mg tablet 20 mg PO DAILY #90 tabs 06/29/23 07/14/23 bismuth tribrom-petrolatum,wh 2 X #150 ea 07/10/23 07/13/23 2 bandage (Xeroform Petrolatum Dressing) sulfamethoxazole 800 1 tab PO Q12H 5 days #10 tabs 07/13/23 07/14/23 mg-trimethoprim 160 mg tablet (Bactrim DS) Previous Rx's Medication Instructions Recorded fluticasone propionate 50 1 spray NS BID PRN allergy 12/03/21 mcg/actuation nasal symptoms #16 grams spray,suspension ammonium lactate 5 % lotion 1 applic topical DAILY #226 grams 04/08/22 (Lac-Hydrin Five) montelukast 10 mg tablet 10 mg PO DAILY #90 tab-caps 08/12/22 (Singulair) fluticasone propionate 45 2 puff inhalation BID #12 grams 12/09/22 mcg-salmeterol 21 mcg/actuation HFA inhaler (Advair HFA) albuterol sulfate 90 mcg/actuation 2 puff inhalation QID PRN 02/19/23 aerosol inhaler shortness of breath or wheezing #8.5 grams amlodipine 5 mg tablet 5 mg PO DAILY #90 tabs 03/30/23 omeprazole 20 mg capsule,delayed See Rx Instructions .Route 06/01/23 release .COMPLEX #90 caps foam bandage 4 X 4 (Mepilex) #5 ea 06/15/23 furosemide 20 mg tablet 20 mg PO DAILY #90 tabs 06/29/23 bismuth tribrom-petrolatum,wh 2 X #150 ea 07/10/23 2 bandage (Xeroform Petrolatum Dressing) sulfamethoxazole 800 1 tab PO Q12H 5 days #10 tabs 07/13/23 mg-trimethoprim 160 mg tablet (Bactrim DS) Allergies Allergy/AdvReac Type Severity Reaction Status Date / Time cephalexin Allergy Severe SKIN RASH Verified 07/14/23 15:56 Penicillins Allergy Intermediate SKIN RASH Verified 07/14/23 15:56 erythromycin base Allergy Unknown Verified 07/14/23 15:56 benzonatate AdvReac Intermediate migraine, Verified 07/14/23 15:56 eye burning levofloxacin [From Levaquin] AdvReac Intermediate mouth sores Verified 07/14/23 15:56 NSAIDS (Non-Steroidal AdvReac Intermediate ASTHMA Verified 07/14/23 15:56 Anti-Inflamma EXACERBATION simvastatin AdvReac Mild MYALGIAS Verified 07/14/23 15:56 aspirin AdvReac Unknown ASTHMA Verified 07/14/23 15:56 EXACERBATION pseudoephedrine AdvReac Unknown INSOMNIA Verified 07/14/23 15:56 General Stated Complaint: AMS/LOC LAMBERTO: 2 Review of Systems All systems reviewed & are unremarkable except as noted in HPI and below Constitutional Constitutional: Reports as per HPI and Reports lethargy Neurologic Neurologic: Reports behavioral changes Psychiatric Psychiatric: Reports behavioral changes PFSH All Active Problems (Updated 07/14/23 @ 23:17 by Ximena Graham NP) Weakness (Acute) DVT prophylaxis (Acute) Hypokalemia (Acute) Vascular insufficiency of extremity (Acute) Foot pain, bilateral (Acute) Neck abrasion (Acute) Fall (Acute) Abrasion (Acute) Arthritis (Acute) Skin ulcer (Acute) Leg edema (Chronic) Pruritic disorder (Acute) Prediabetes (Acute) Cellulitis (Chronic) Eczema (Chronic) HTN (hypertension) (Chronic) Varicose veins of lower extremity (Acute) Total urinary incontinence (Acute) Mild persistent asthma without complication (Acute 03/19/18) Gastroesophageal reflux disease (Acute) Depressive disorder (Acute 08/03/13) Chronic obstructive lung disease (Acute) Medical History Skin tag 02/02- flesh color under right eye Superficial partial thickness burn of back excluding buttock Bruising Non-toxic uninodular goiter Hyperlipidemia Surgical History History of bilateral ligation of fallopian tubes Status post inguinal hernia repair History of cystoscopy hx UTI Ligation of fallopian tube Repair of inguinal hernia left, direct, Dr Nicole Shelley, [facility] Family History Mother , age 70 Heart disease Asthma Father , age 65 Heart disease Cancer Sister , age 74 RA (rheumatoid arthritis) Heart disease Asthma Brother , 63 Asthma Cancer Diabetes Brother Essential hypertension Depression Heart disease Asthma Maternal Grandfather , 85 Heart disease Asthma Paternal Grandfather , DROWNED at age 81. Cancer Maternal Grandmother , in her 80s Diabetes Paternal Grandmother , 70 Stroke Son RA (rheumatoid arthritis) Daughter Diabetes Depression Stroke MS (multiple sclerosis) Asthma Social History Smoking/Tobacco Use Status: Current-Occasional Tobacco Type: cigarettes Quit status: quit date established Second Hand Exposure: Yes Smoking risk assessment performed?: Yes Alcohol Intake: current Alcohol Intake frequency: holidays/special occasions only Alcohol type: wine Drug use: Never Substance use type: does not use Caregiver/Support person: No Household members: none Housing: house Communication Needs: Corrective Lenses Do you need help understanding health information?: Never Pets and animals: No Sexually active: No What is your relationship status?: How often do you talk on the phone with friends or family?: three or more times per week How often do you get together with friends or relatives?: decline to answer How often do you attend confucianist or jewish services?: decline to answer Do you belong to any clubs or organized social groups?: no Panel score (0-1 are the most socially isolated patients): 1 What type of physical activity do you participate in: none Frequency: does not exercise Verito/Jain: None Special verito needs: No Seatbelt use: always Helmet use: No Drive intox or ride w/intox 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 Uses occasional obscenities, family states shes been feisty. Skin: Warm and Dry, Wound noted and surrounding ecchymosis noted to left lateral anterior neck. No bleeding HEENT: Head: No palpable deformities, Normocephalic Eyes: Pupils PERRLA, EOM's intact. No periorbital eccymosis or step off Ears: Canal patent. Tympanic membranes are clear . No barney's sign, no hemptympanum. Nose/Face: Atraumatic. Facial bones nontender to palpation and stable with manipulation. Mouth/Throat: No intraoral trauma. Teeth and mandible are intact. Neck: No midline tenderness, no step off, no deformity to palpation of C-spine. Trachea midline. Chest: No surface trauma. Nontender without crepitus or deformity. Lungs clear to ausculatation bilaterally. Heart: RRR, no rubs, murmurs or gallop. Abdomen: No abrasions, ecchymosis, or surface trauma. Nondistended. Nontender to palpation no guarding, rebound, or rigidity. Pelvis: Nontender to palpation and stable to compression. Femoral pulses strong and equal Extremities: left lower anterior barr and knee, new appearing contusion noted to knee and ecchymosis noted to left anterior barr. Sensation intact. Peripheral pulses intact and equal. Neuro: ANO x4, GCS 15, cranial nerves II through XII intact. Motor and sensory exam nonfocal. Reflexes are symmetric. Course Vital Signs Vital signs: Vital Signs Temperature 37.3 C 07/14/23 15:47 Pulse 104 H 07/14/23 15:47 Respiratory Rate 24 07/14/23 15:47 Blood Pressure 94/44 L 07/14/23 15:47 Pulse Oximetry 97 07/14/23 15:47 Temperature 37.3 C 07/14/23 15:47 Temperature Source Oral 07/14/23 15:47 Pulse 104 H 07/14/23 16:01 Respiratory Rate 24 07/14/23 16:01 Respiratory Effort Normal 07/14/23 16:01 Blood Pressure 94/44 L 07/14/23 16:01 Blood Pressure Position Sitting 07/14/23 16:01 Pulse Oximetry 99 07/14/23 16:01 Oxygen Delivery Method Room Air 07/14/23 16:01 Oxygen Flow Rate 0 07/14/23 15:47 Lab/Test Results Lab/Test Results: 07/14/23 16:12 Blood Blood Culture - Pending 07/14/23 16:12 Blood Blood Culture - Pending
[2023-07-14 16:17] VITALS: RESP 18
--- NOTE | 2023-07-14 16:30 | DI.CT_ITS ---
Exam(s) CT HEAD WO EXAM: CT HEAD WO CLINICAL HISTORY: AMS, Fall 4 days ago. TECHNIQUE: Imaging Protocol: Axial computed tomography images with coronal and sagittal reformatted images were created and reviewed COMPARISON: CT CT HEAD CERVICAL SPINE WO from 07/10/2023 FINDINGS: Ventricles and Extra axial spaces: Normal in size and morphology for the patient's age. Hemorrhage: None. Cerebral parenchyma: Atrophy. White matter changes consistent with small vessel disease. Midline shift: None. Brainstem/Cerebellum: Normal. Calvarium: Normal. Visualized Paranasal sinuses/Mastoids: Clear. IMPRESSION: No acute abnormality. RADIATION DOSE DELIVERED: Total DLP Total DLP DATA REPOSITORY: All CT scans at this facility are submitted to the National Radiology Data Registry (NRDR) Dose Index Registry (DIR) with the [employer] (ACR). RADIATION OPTIMIZATION: All CT scans at this facility use at least one of these dose optimization te chniques: automated exposure control; mA and/or kV adjustment per patient size (includes targeted exa ms where dose is matched to clinical indication); or iterative reconstruction.
[2023-07-14 16:32] LABS: Abs Immature Grans 0.04 10^3/uL (0.0-0.06); Absolute Basophil Count 0.07 10^3/uL (0.0-0.2); Absolute Lymphocyte Count 1.84 10^3/uL (1.2-3.4); Basophils % 0.5; Eosinophils % 1.2; HCT 34.5 % (36.0-46.0); HGB 11.4 g/dL (11.2-15.7); Immature Grans % 0.3; Lymphocytes % 13.4; MCH 31.2 pg (27.0-33.0); MCV 95 fL (80-95); MPV 9.1 fL (8.0-11.0); Monocytes % 6.3; Neutrophils % 78.3; Platelet Count 396 10^3/uL (130-400); RBC 3.65 10^6/uL (3.93-5.22); RDW 14.4 % (11.7-14.6); RDW-SD 50.4 fL; WBC 13.71 10^3/uL (4.4-10.8)
[2023-07-14 16:33] LABS: Absolute Eosinophil Count 0.16 10^3/uL (0.0-0.7); Absolute Monocyte Count 0.86 10^3/uL (0.1-0.8); Absolute Neutrophil Count 10.73 10^3/uL (1.2-6.7)
[2023-07-14] MEDS: Normal Saline 500 ML IV (16:35)
[2023-07-14 16:41] LABS: Prothrombin Time 10.2 sec (9.1-11.1)
[2023-07-14 16:48] LABS: ALT 12 U/L (14-59); AST 16 U/L (15-37); Albumin 2.5 g/dL (3.4-5.0); Alkaline Phosphatase 96 U/L (46-116); Anion Gap 9.5 mmol/L (3-11); BUN 7 mg/dL (7-18); Bilirubin, Total 0.6 mg/dL (0.2-1.0); CO2 30.5 mmol/L (21.0-32.0); CREATININE 0.9 mg/dL (0.55-1.02); Chloride 100 mmol/L (98-107); Estimated GFR 63.43 (mL/min/1.73m2); Glucose 158 mg/dL (74-106); Magnesium 1.5 mg/dL (1.8-2.4); Sodium 140 mmol/L (136-145); Troponin I < 50 ng/L (<or=60)
[2023-07-14 16:52] LABS: Potassium 2.6 mmol/L (3.5-5.1)
[2023-07-14 16:53] LABS: Lactate 1.4 mmol/L (0.6-1.4)
[2023-07-14] MEDS: MAGNESIUM SULFATE 1 GM/100 ML BAG IVPB ×2 (17:37→19:25)
[2023-07-14 18:54] LABS: Hemoglobin A1C 5.5 % (<5.7)
[2023-07-14 19:04] LABS: Lab Add On Test DONE; TSH 2.06 uIU/mL (0.36-3.74)
[2023-07-14] MEDS: POTASSIUM CHLORIDE 10 MEQ/100 ML BAG 100 MEQ IVPB (19:12)
[2023-07-14] MEDS: Potassium Chloride Liquid 20 MEQ PKT 40 MEQ PO (19:35)
[2023-07-14 20:02] VITALS: PULSE 106
[2023-07-14 20:04] VITALS: BP 127/73; PULSE 98; RESP 18; TEMP 37.5; O2SAT 97
--- NOTE | 2023-07-14 21:04 | W.PM.HP.N ---
Date of service: 07/14/23 Time of Service: 21:04 Assessment and Plan Assessment and plan (1) Hypokalemia: Status: Acute Assessment and plan: K+ of 2.6 associated with some deminished energy and mental status qualifies as severe. Will admit on telemetry monitoring while we replace her potassium as well as her magnesium. Cause is recently restarted furosemide. I am holding this, see below. (2) HTN (hypertension): Status: Chronic Assessment and plan: As above Pat was recently restarted on furosemide for LE swelling. This LE swelling is likely related to her amlodipine. I am holding both for now. Plan to resume alternative BP med (such as a long-acting ARB like olmestartan) when her blood pressure starts going up. I will hold off for now as it takes about 2 weeks for amlodipine to leave her system and I don't want to drop her blood pressures. (3) Chronic obstructive lung disease: Status: Acute Assessment and plan: Respiratory status stable. Continue home meds. PCP may consider stopping montelukast given some mental status changes, but on the other hand this is typically good asthma medication for patients with ASA allergy. No change for now. (4) Abrasion: Status: Acute Assessment and plan: I am not convinced there is an active infection, but the picture from yesterday was a little more impressive than today's exam. she does have a slight WBC count. Given these factors, I will continue the outpatient cellulitis treatment with TMP/SMX. Ask for wound care. (5) Fall: Status: Acute Assessment and plan: She is at risk for needing SNF level of care. Will ask for PT consult for safety/falll prevention. (6) DVT prophylaxis: Status: Acute Assessment and plan: LMWH History of Present Illness History of Present Illness Chief Complaint: fall, confusion Narrative: 83 yo F with history of hypertension, obstructive asthma, recurrent falls and likely dementia who first presented to the emergency room 07/10 after a fall on 07/09. She was walking down stairs when she lost her footing and fell against the wooden banister and hit the floor. Trauma to her left neck but not her head. She had a work up in the ED with head/neck CT and was sent home. She went to the clinic the day before admission and was note to be more agitated and PCP was concerned for an infection of wound in left leg. She was started on Bactrim. Today her family brought her in with the concern that she is increasingly confused and has little energy. The patient states that she remembers the fall on the stairs and that she never had dizziness, chest pain, palpitations, LOC, or head trauma. She states she just tripped. However she cannot recall the ED and clinic visits. Of note, seen in the clinic 06/29 and started on 20mg of furosemide a day to address lower leg swelling. No other medication changes recently. Review of Systems Constitutional Constitutional: Denies anorexia, Denies chills, Denies fever(s), Reports frequent falls, Denies headache(s), Reports lethargy and Denies poor appetite Eyes Eyes: Denies change in vision and Denies irritation ENT Ears, Nose, Mouth, and Throat: Denies dizziness, Denies headache(s), Denies nasal congestion, Denies nasal discharge and Denies sore throat Cardiovascular Cardiovascular: Denies chest pain, Denies irregular heart rhythm, Denies lightheadedness, Denies palpitations, Denies dyspnea and Denies orthopnea Respiratory Respiratory: Denies excessive phlegm production, Denies dyspnea and Denies wheezing Gastrointestinal Gastrointestinal: Denies abdominal pain, Denies melena, Denies hematochezia, Denies heartburn, Reports loose stools (had a loose stool the day of the fall, not since), Denies nausea and Denies vomiting Genitourinary Genitourinary: Denies hematuria, Denies dysuria and Reports urinary incontinence (not new) Integumentary/Breasts Skin/Breast: Denies rash Neurologic Neurologic: Denies dizziness, Reports frequent falls, Denies headache(s), Reports memory loss and Denies sensory deficit Psychiatric Psychiatric: Reports memory loss and Denies mood swings Endocrine Endocrine: Denies palpitations Hematologic/Lymphatic Hematologic/Lymphatic: Denies easy bleeding Allergic/Immunologic Allergic/Immunologic: Denies wheezing PFSH All Active Problems (Updated 07/14/23 @ 21:33 by Vikas Rivera) DVT prophylaxis (Acute) Hypokalemia (Acute) Vascular insufficiency of extremity (Acute) Foot pain, bilateral (Acute) Neck abrasion (Acute) Fall (Acute) Abrasion (Acute) Arthritis (Acute) Skin ulcer (Acute) Leg edema (Chronic) Pruritic disorder (Acute) Prediabetes (Acute) Cellulitis (Chronic) Eczema (Chronic) HTN (hypertension) (Chronic) Varicose veins of lower extremity (Acute) Total urinary incontinence (Acute) Mild persistent asthma without complication (Acute 03/19/18) Gastroesophageal reflux disease (Acute) Depressive disorder (Acute 08/03/13) Chronic obstructive lung disease (Acute) Medical History Skin tag 02/02- flesh color under right eye Superficial partial thickness burn of back excluding buttock Bruising Non-toxic uninodular goiter Hyperlipidemia Surgical History History of bilateral ligation of fallopian tubes Status post inguinal hernia repair History of cystoscopy hx UTI Ligation of fallopian tube Repair of inguinal hernia left, direct, Dr Nicole Shelley, [facility] Family History Mother , age 70 Heart disease Asthma Father , age 65 Heart disease Cancer Sister , age 74 RA (rheumatoid arthritis) Heart disease Asthma Brother , 63 Asthma Cancer Diabetes Brother Essential hypertension Depression Heart disease Asthma Maternal Grandfather , 85 Heart disease Asthma Paternal Grandfather , DROWNED at age 81. Cancer Maternal Grandmother , in her 80s Diabetes Paternal Grandmother , 70 Stroke Son RA (rheumatoid arthritis) Daughter Diabetes Depression Stroke MS (multiple sclerosis) Asthma Social History Smoking/Tobacco Use Status: Current-Occasional Tobacco Type: cigarettes Quit status: quit date established Second Hand Exposure: Yes Smoking risk assessment performed?: Yes Alcohol Intake: current Alcohol Intake frequency: holidays/special occasions only Alcohol type: wine Drug use: Never Substance use type: does not use Caregiver/Support person: No Household members: none Housing: house Communication Needs: Corrective Lenses Do you need help understanding health information?: Never Pets and animals: No Sexually active: No What is your relationship status?: How often do you talk on the phone with friends or family?: three or more times per week How often do you get together with friends or relatives?: decline to answer How often do you attend zoroastrianism or druze services?: decline to answer Do you belong to any clubs or organized social groups?: no Panel score (0-1 are the most socially isolated patients): 1 What type of physical activity do you participate in: none Frequency: does not exercise Verito/Zoroastrian: None Special verito needs: No Seatbelt use: always Helmet use: No Drive intox or ride w/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 barge mounted: No Do you feel safe at home: Yes Do you feel safe in your relationship?: Yes Meds Allergies and Home Medications Allergies Allergy/AdvReac Type Severity Reaction Status Date / Time cephalexin Allergy Severe SKIN RASH Verified 07/14/23 15:56 Penicillins Allergy Intermediate SKIN RASH Verified 07/14/23 15:56 erythromycin base Allergy Unknown Verified 07/14/23 15:56 benzonatate AdvReac Intermediate migraine, Verified 07/14/23 15:56 eye burning levofloxacin [From Levaquin] AdvReac Intermediate mouth sores Verified 07/14/23 15:56 NSAIDS (Non-Steroidal AdvReac Intermediate ASTHMA Verified 07/14/23 15:56 Anti-Inflamma EXACERBATION simvastatin AdvReac Mild MYALGIAS Verified 07/14/23 15:56 aspirin AdvReac Unknown ASTHMA Verified 07/14/23 15:56 EXACERBATION pseudoephedrine AdvReac Unknown INSOMNIA Verified 07/14/23 15:56 Home Medications Medication Instructions Recorded Confirmed Type magnesium chloride 64 mg 64 mg PO BID 03/25/13 07/14/23 History (magnesium chloride) tablet,delayed release (Mag 64) biotin 1 mg tablet 1 mg PO DAILY 08/13/16 07/14/23 History cholecalciferol (vitamin D3) 125 5,000 unit PO DAILY 08/13/16 07/14/23 History mcg (5,000 unit) tablet fluticasone propionate 50 1 spray NS BID PRN allergy 12/03/21 07/14/23 Rx mcg/actuation nasal symptoms #16 grams spray,suspension ammonium lactate 5 % lotion 1 applic topical DAILY #226 grams 04/08/22 07/14/23 Rx (Lac-Hydrin Five) montelukast 10 mg tablet 10 mg PO DAILY #90 tab-caps 08/12/22 07/14/23 Rx (Singulair) fluticasone propionate 45 2 puff inhalation BID #12 grams 12/09/22 07/14/23 Rx mcg-salmeterol 21 mcg/actuation HFA inhaler (Advair HFA) albuterol sulfate 90 mcg/actuation 2 puff inhalation QID PRN 02/19/23 07/14/23 Rx aerosol inhaler shortness of breath or wheezing #8.5 grams amlodipine 5 mg tablet 5 mg PO DAILY #90 tabs 03/30/23 07/14/23 Rx omeprazole 20 mg capsule,delayed See Rx Instructions .Route 06/01/23 07/14/23 Rx release .COMPLEX #90 caps foam bandage 4 X 4 (Mepilex) #5 ea 06/15/23 07/13/23 Rx furosemide 20 mg tablet 20 mg PO DAILY #90 tabs 06/29/23 07/14/23 Rx bismuth tribrom-petrolatum,wh 2 X #150 ea 07/10/23 07/13/23 Rx 2 bandage (Xeroform Petrolatum Dressing) sulfamethoxazole 800 1 tab PO Q12H 5 days #10 tabs 07/13/23 07/14/23 Rx mg-trimethoprim 160 mg tablet (Bactrim DS) Exam Narrative Exam Narrative: GEN: Alert and oriented to self and place, not time, pleasant and cooperative, unable to relate a linear history. No acute distress at rest. HEENT: Head atraumatic other that sloughing would with bruise left mid/anterior neck. Neck not deformed otherwise, supple. Conjunctiva clear, no icterus. PEERL, EOMI. no rhinorrhea. MMM, OP benign. Neck with no masses or lymphadenopathy, trachea midline LUNGS: CTAB with normal effort CV: RRR with no murmurs, gallops, or rubs. ABD: +BS, soft, NT/ND EXT: no cyanosis, clubbing. 1+ edema nell, legs only tender on wounds. MSK: No joint redness or swelling NEURO: CN 2-12 grossly intact. Normal movement of 4 extremities. Normal speech and coordination SKIN: No rashes. skin sloughing with peeling skin and underlying bruising left neck. Also ulcerations on nell LE, bruising and hyperpigmentation nell lower legs more on left. PSYCH: normal mood and affect Results Imaging EKG: report reviewed and image reviewed (Sinus tachy 104, left axis, nl interavals. No acute ischemia, similar to previousl) Imaging Studies: Head CT: No acute abnormality L knee: No acute brandon abnormality, minimal degeneration. Labs 07/14/23 16:25 07/14/23 16:25 Labs: Laboratory Results - last 24 hr 07/14/23 07/14/23 07/14/23 16:25 16:32 16:42 WBC 13.71 H RBC 3.65 L Hgb 11.4 Hct 34.5 L MCV 95 MCH 31.2 MCHC 33.0 RDW 14.4 Plt Count 396 MPV 9.1 Immature Gran % 0.3 Neutrophils % 78.3 Lymphocytes % 13.4 Monocytes % 6.3 Eosinophils % 1.2 Basophils % 0.5 Nucleated RBC % 0.0 Absolute Neutrophils 10.73 H Absolute Lymphocytes 1.84 Absolute Monocytes 0.86 H Absolute Eosinophils 0.16 Absolute Basophils 0.07 PT 10.2 INR 1.0 VBG Lactate 1.4 Sodium 140 Potassium 2.6 L* Chloride 100 Carbon Dioxide 30.5 Anion Gap 9.5 BUN 7 Creatinine 0.9 Est GFR (CKD-EPI 2020) 63.43 Glucose 158 H Hemoglobin A1c 5.5 Calcium 9.0 Magnesium 1.5 L Total Bilirubin 0.6 AST 16 ALT 12 L Alkaline Phosphatase 96 Troponin I < 50 Total Protein 7.0 Albumin 2.5 L TSH 2.06 Add-On Test Request DONE Last Vital Signs Temp 37.5 C 07/14/23 20:04 Pulse 98 H 07/14/23 20:04 Resp 18 07/14/23 20:04 BP 127/73 07/14/23 20:04 Pulse Ox 97 07/14/23 20:04 Time Spent Time spent with Patient: 55-74 minutes Time was spent: preparing to see the patient(eg.review tests), obtaining and/or reviewing separately otained hiistory, ordering medications,tests, procedures, referring, communicating with other health intensive care unit nurse, indepentently interpreting results and counseling the patient
[2023-07-14 22:03] LABS: Source Nasal/Nares
[2023-07-14 22:35] LABS: COVID-19 PCR Negative (Negative)
[2023-07-14 23:24] VITALS: BP 123/71; PULSE 102; RESP 18; TEMP 37.7; O2SAT 93
[2023-07-14] MEDS: Enoxaparin 40 MG/0.4 ML SYR SC (23:44)
[2023-07-15] VITALS (7 sets, daily range): BP systolic 94–121; BP diastolic 53–75; PULSE 70–95; RESP 16–18; TEMP 36.4–37.1; O2SAT 92–98
[2023-07-15] MEDS: Acetaminophen 325 MG TAB PO ×3 (02:22→20:46)
[2023-07-15 05:19] LABS: Bilirubin Negative (Negative); Blood Moderate (Negative); Clarity Sl Cloudy (Clear); Glucose Negative (Negative); Ketones 15 mg/dL (Negative); Leukocyte Esterase Small (Negative); Nitrite Negative (Negative); Specific Gravity 1.015 (1.005-1.025); Urobilinogen 0.2 mg/dL (Up to 0.2); pH 8.5 (5-8)
[2023-07-15 05:29] LABS: Epithelial Cells Moderate HPF (Negative)
[2023-07-15 05:30] LABS: Bacteria Few HPF (Negative); C & S Indicated? No/Sq. Contamination; Crystals Moderate Amorphous HPF (Negative); Mucus Negative (Negative)
[2023-07-15 06:58] LABS: Abs Immature Grans 0.02 10^3/uL (0.0-0.06); Absolute Basophil Count 0.06 10^3/uL (0.0-0.2); Absolute Eosinophil Count 0.26 10^3/uL (0.0-0.7); Absolute Lymphocyte Count 1.64 10^3/uL (1.2-3.4); Absolute Monocyte Count 0.77 10^3/uL (0.1-0.8); Basophils % 0.6; Eosinophils % 2.7; HGB 9.3 g/dL (11.2-15.7); Immature Grans % 0.2; MCH 31.7 pg (27.0-33.0); MCHC 33.2 % (32.0-36.0); MCV 96 fL (80-95); MPV 9.1 fL (8.0-11.0); Neutrophils % 71.5; Platelet Count 353 10^3/uL (130-400); RBC 2.93 10^6/uL (3.93-5.22); RDW 14.6 % (11.7-14.6); RDW-SD 50.7 fL; WBC 9.65 10^3/uL (4.4-10.8)
[2023-07-15 07:06] LABS: Anion Gap 7.4 mmol/L (3-11); BUN 6 mg/dL (7-18); CO2 28.6 mmol/L (21.0-32.0); CREATININE 0.8 mg/dL (0.55-1.02); Calcium 8.4 mg/dL (8.5-10.1); Chloride 102 mmol/L (98-107); Estimated GFR 73.06 (mL/min/1.73m2); Glucose 82 mg/dL (74-106); Magnesium 2.2 mg/dL (1.8-2.4); Potassium 3.3 mmol/L (3.5-5.1); Sodium 138 mmol/L (136-145)
[2023-07-15] MEDS: Budesonide/Formoterol 80/4.5 6.9 GM 60 PUFF INH IH ×2 (08:57→19:25)
[2023-07-15] MEDS: Montelukast 10 MG TAB PO (09:29)
[2023-07-15] MEDS: Cholecalciferol (Vitamin D3) 1,000 UNIT TAB 5000 UNITS PO (09:30)
[2023-07-15] MEDS: Omeprazole 20 MG CAPCR PO (09:30)
[2023-07-15] MEDS: Magnesium Chloride 64 MG TABCR PO ×2 (09:30→20:46)
[2023-07-15] MEDS: Normal Saline Flush 10 ML SYR IVP (09:31)
--- NOTE | 2023-07-15 10:57 | PDOC.CMIN ---
Date of service: 07/15/23 Time of Service: 10:57 Care Management Initial Assmt Initial Assessment REASON FOR HOSPITALIZATION:: Hypokalemia PREVIOUS FUNCTIONAL STATUS/SOCIAL/FAMILY SUPPORTS:: Jada lives with her family friend Alessandra and several of Alessandra's children and grandchildren. She recently moved back to the area from [place], where she has been living near her granddaughter for more support. Jada has one son, Jesse, who lives in [facility] and her granddaughter Myla who lives in [place]. Jada also has a niece Jeanie Burns who has been very helpful and supportive. Jada is independent with ADLs at baseline and does not currently receive any community services. CURRENT FUNCTIONAL STATUS:: Jada was sitting up in bed when CM met with her. She talked about her current living situation and admitted it is not ideal. There are about 10 children living in the home and Pat lacks privacy. She has agreed to return there for now but may be looking for alternative living arrangements in the future. ADVANCE DIRECTIVES:: none on file Has patient been provided with info about the portal/API?: Yes Did the patient sign up for the portal?: Yes CODE STATUS:: Full Code INSURANCE COVERAGE / FINANCIAL ISSUES:: Medicare [employer] Senior supplement PRIMARY CARE PHYSICIAN:: Cait Aguiar POTENTIAL DISCHARGE NEEDS:: Follow up with PCP and plan of care PATIENT/FAMILY EDUCATION NEEDS:: Review of discharge instructions, limitations, follow up plan, discuss Ask Me Three TRANSPORTATION:: via private vehicle with family PLAN:: Anticipate Jada will return home, possibly with new home health services, when medically cleared. She will follow up with community providers and plan of care and transport with family. CM will follow and continue to assess for discharge needs. PFSH All Active Problems (Updated 07/15/23 @ 14:03 by Omar Askew MD) Weakness (Acute) DVT prophylaxis (Acute) Hypokalemia (Acute) Vascular insufficiency of extremity (Acute) Foot pain, bilateral (Acute) Neck abrasion (Acute) Fall (Acute) Abrasion (Acute) Arthritis (Acute) Skin ulcer (Acute) Leg edema (Chronic) Pruritic disorder (Acute) Prediabetes (Acute) Cellulitis (Chronic) Eczema (Chronic) HTN (hypertension) (Chronic) Varicose veins of lower extremity (Acute) Total urinary incontinence (Acute) Mild persistent asthma without complication (Acute 03/19/18) Gastroesophageal reflux disease (Acute) Depressive disorder (Acute 08/03/13) Chronic obstructive lung disease (Acute) Medical History Skin tag 02/02- flesh color under right eye Superficial partial thickness burn of back excluding buttock Bruising Non-toxic uninodular goiter Hyperlipidemia Surgical History History of bilateral ligation of fallopian tubes Status post inguinal hernia repair History of cystoscopy hx UTI Ligation of fallopian tube Repair of inguinal hernia left, direct, Dr Nicole Shelley, [facility] Family History Mother , age 70 Heart disease Asthma Father , age 65 Heart disease Cancer Sister , age 74 RA (rheumatoid arthritis) Heart disease Asthma Brother , 63 Asthma Cancer Diabetes Brother Essential hypertension Depression Heart disease Asthma Maternal Grandfather , 85 Heart disease Asthma Paternal Grandfather , DROWNED at age 81. Cancer Maternal Grandmother , in her 80s Diabetes Paternal Grandmother , 70 Stroke Son RA (rheumatoid arthritis) Daughter Diabetes Depression Stroke MS (multiple sclerosis) Asthma Social History Smoking/Tobacco Use Status: Current-Occasional Tobacco Type: cigarettes Quit status: quit date established Second Hand Exposure: Yes Smoking risk assessment performed?: Yes Alcohol Intake: current Alcohol Intake frequency: holidays/special occasions only Alcohol type: wine Drug use: Never Substance use type: does not use Caregiver/Support person: No Household members: none Housing: house Communication Needs: Corrective Lenses Do you need help understanding health information?: Never Pets and animals: No Sexually active: No What is your relationship status?: How often do you talk on the phone with friends or family?: three or more times per week How often do you get together with friends or relatives?: decline to answer How often do you attend restoration or mandaeism services?: decline to answer Do you belong to any clubs or organized social groups?: no Panel score (0-1 are the most socially isolated patients): 1 What type of physical activity do you participate in: none Frequency: does not exercise Verito/Druze: None Special verito needs: No Seatbelt use: always Helmet use: No Drive intox or ride w/intox 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
[2023-07-15] MEDS: Potassium Chloride Liquid 20 MEQ PKT 40 MEQ PO (11:46)
[2023-07-15] MEDS: Lachydrin 12% LOTION 225 GM BTL TP (11:55)
--- NOTE | 2023-07-15 13:55 | W.PM.PROGNOT ---
Date of Service Date of service: 07/15/23 Time of Service: 13:55 Assessment and Plan Assessment and plan (1) Hypokalemia: Status: Acute Assessment and plan: K+ of 2.6 associated with some deminished energy and mental status qualifies as severe. Now corrected. Cause is likely recently restarted furosemide. I am holding this, see below. (2) HTN (hypertension): Status: Chronic Assessment and plan: As above Pat was recently restarted on furosemide for LE swelling. This LE swelling is likely related to her amlodipine. Lasix and amlodipine both being held Plan to resume alternative BP med (such as a long-acting ARB like olmestartan) when her blood pressure starts going up. Hold off now; 2 weeks before amlodipine clears. Qualifiers: Hypertension type: primary hypertension Qualified Code(s): I10 - Essential (primary) hypertension (3) Chronic obstructive lung disease: Status: Acute Assessment and plan: Respiratory status stable. Continue home meds. PCP may consider stopping montelukast given some mental status changes, but on the other hand this is typically good asthma medication for patients with ASA allergy. No change for now. Qualifiers: COPD type: unspecified COPD Qualified Code(s): J44.9 - Chronic obstructive pulmonary disease, unspecified (4) Abrasion: Status: Acute Assessment and plan: I am not convinced there is an active infection, but the picture from yesterday was a little more impressive than today's exam. she does have a slight WBC count. Given these factors, will continue the outpatient cellulitis treatment with TMP/SMX. Ask for wound care. (5) Fall: Status: Acute Assessment and plan: She is at risk for needing SNF level of care. Will ask for PT consult for safety/falll prevention. Qualifiers: Encounter type: subsequent encounter Qualified Code(s): W19.XXXD - Unspecified fall, subsequent encounter (6) DVT prophylaxis: Status: Acute Assessment and plan: LMWH Subjective Subjective Patient reports: no new complaints, feels better, tolerating a regular diet and afebrile; denies nausea, vomiting or shortness of breath Exam Narrative Exam Narrative: GEN: Pleasant. Sitting in chair. NAD HEENT: Sclera clear. MMM LUNGS: CTAB with normal effort CV: RRR with no murmurs ABD: +BS, soft EXT: BLE with tr edema. NEURO: Normal movement of 4 extremities. Normal speech and coordination SKIN: skin sloughing with peeling skin and underlying bruising left neck. Also ulcerations on nell LE, bruising and hyperpigmentation /erythema of lower legs;more on left. PSYCH: normal mood and affect. Some confusion noted. Objective Last Vital Signs Temp 36.4 C L 07/15/23 11:05 Pulse 77 07/15/23 11:05 Resp 18 07/15/23 11:05 BP 121/75 07/15/23 11:05 Pulse Ox 96 07/15/23 11:05 Laboratory Results - last 24 hr 07/14/23 07/14/23 07/14/23 16:25 16:32 16:42 WBC 13.71 H RBC 3.65 L Hgb 11.4 Hct 34.5 L MCV 95 MCH 31.2 MCHC 33.0 RDW 14.4 Plt Count 396 MPV 9.1 Immature Gran % 0.3 Neutrophils % 78.3 Lymphocytes % 13.4 Monocytes % 6.3 Eosinophils % 1.2 Basophils % 0.5 Nucleated RBC % 0.0 Absolute Neutrophils 10.73 H Absolute Lymphocytes 1.84 Absolute Monocytes 0.86 H Absolute Eosinophils 0.16 Absolute Basophils 0.07 PT 10.2 INR 1.0 VBG Lactate 1.4 Sodium 140 Potassium 2.6 L* Chloride 100 Carbon Dioxide 30.5 Anion Gap 9.5 BUN 7 Creatinine 0.9 Est GFR (CKD-EPI 2020) 63.43 Glucose 158 H Hemoglobin A1c 5.5 Calcium 9.0 Magnesium 1.5 L Total Bilirubin 0.6 AST 16 ALT 12 L Alkaline Phosphatase 96 Troponin I < 50 Total Protein 7.0 Albumin 2.5 L TSH 2.06 Urine Color Urine Clarity Urine pH Ur Specific [place] Urine Protein Urine Ketones Urine Blood Urine Nitrite Urine Bilirubin Urine Urobilinogen Ur Leukocyte Esterase Urine RBC Urine WBC Ur Epithelial Cells Urine Crystals Urine Bacteria Urine Mucus Ur Culture Indicated? Urine Glucose COVID-19 Source SARS-CoV-2 (PCR) Add-On Test Request DONE 07/14/23 07/15/23 07/15/23 21:50 05:10 06:20 WBC 9.65 RBC 2.93 L Hgb 9.3 L D Hct 28.0 L MCV 96 H MCH 31.7 MCHC 33.2 RDW 14.6 Plt Count 353 MPV 9.1 Immature Gran % 0.2 Neutrophils % 71.5 Lymphocytes % 17.0 Monocytes % 8.0 Eosinophils % 2.7 Basophils % 0.6 Nucleated RBC % 0.0 Absolute Neutrophils 6.90 H Absolute Lymphocytes 1.64 Absolute Monocytes 0.77 Absolute Eosinophils 0.26 Absolute Basophils 0.06 PT INR VBG Lactate Sodium Potassium Chloride Carbon Dioxide Anion Gap BUN Creatinine Est GFR (CKD-EPI 2020) Glucose Hemoglobin A1c Calcium Magnesium Total Bilirubin AST ALT Alkaline Phosphatase Troponin I Total Protein Albumin TSH Urine Color Yellow Urine Clarity Sl Cloudy Urine pH 8.5 H Ur Specific [place] 1.015 Urine Protein Negative Urine Ketones 15 H Urine Blood Moderate H Urine Nitrite Negative Urine Bilirubin Negative Urine Urobilinogen 0.2 Ur Leukocyte Esterase Small H Urine RBC 3-5 H Urine WBC 10-20 H Ur Epithelial Cells Moderate Urine Crystals Moderate Amorphous Urine Bacteria Few Urine Mucus Negative Ur Culture Indicated? No/Sq. Contamination Urine Glucose Negative COVID-19 Source Nasal/Nares SARS-CoV-2 (PCR) Negative Add-On Test Request 07/15/23 06:25 WBC RBC Hgb Hct MCV MCH MCHC RDW Plt Count MPV Immature Gran % Neutrophils % Lymphocytes % Monocytes % Eosinophils % Basophils % Nucleated RBC % Absolute Neutrophils Absolute Lymphocytes Absolute Monocytes Absolute Eosinophils Absolute Basophils PT INR VBG Lactate Sodium 138 Potassium 3.3 L Chloride 102 Carbon Dioxide 28.6 Anion Gap 7.4 BUN 6 L Creatinine 0.8 Est GFR (CKD-EPI 2020) 73.06 Glucose 82 Hemoglobin A1c Calcium 8.4 L Magnesium 2.2 Total Bilirubin AST ALT Alkaline Phosphatase Troponin I Total Protein Albumin TSH Urine Color Urine Clarity Urine pH Ur Specific [place] Urine Protein Urine Ketones Urine Blood Urine Nitrite Urine Bilirubin Urine Urobilinogen Ur Leukocyte Esterase Urine RBC Urine WBC Ur Epithelial Cells Urine Crystals Urine Bacteria Urine Mucus Ur Culture Indicated? Urine Glucose COVID-19 Source SARS-CoV-2 (PCR) Add-On Test Request Time Spent with Patient Time Spent with Patient: 35-49 minutes Time was spent: preparing to see the patient(eg.review tests), obtaining and/or reviewing separately otained hiistory, ordering medications,tests, procedures, referring, communicating with other health childcare administrator, indepentently interpreting results, counseling the patient and care coordination
[2023-07-15 15:21] LABS: C Diff PCR Negative (Negative)
--- NOTE | 2023-07-15 17:27 | CHAPLAIN ---
Jada was sitting up in the chair when I visited. She told me that she'd fallen and injured her neck. She also said that her son works in the [employer] and a niece was going to try and contact him as he often was where there isn't cell service. Jada told me that she had four children and three have . We talked about about those losses. She also said she lives with a woman who has ten children in the house for school. This isn't accurate according to what Care Management explained at morning meeting. 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 She is worried that she'll be told where she needs to live now, and she's been making her own decisions for many years, she said, and it's hard to lose that independence.
[2023-07-15] MEDS: Sulfameth/Trimeth DS TAB 1 TAB PO (20:45)
[2023-07-15] MEDS: Enoxaparin 40 MG/0.4 ML SYR SC (20:51)
[2023-07-16 03:54] VITALS: BP 121/73; PULSE 79; RESP 16; TEMP 36.9; O2SAT 94
[2023-07-16] MEDS: Acetaminophen 325 MG TAB PO (04:17)
[2023-07-16] MEDS: hydrOXYzine PAMOATE 25 MG CAP PO (06:09)
[2023-07-16 06:51] LABS: Abs Immature Grans 0.04 10^3/uL (0.0-0.06); Absolute Basophil Count 0.06 10^3/uL (0.0-0.2); Absolute Eosinophil Count 0.32 10^3/uL (0.0-0.7); Absolute Lymphocyte Count 1.26 10^3/uL (1.2-3.4); Absolute Monocyte Count 0.63 10^3/uL (0.1-0.8); Absolute Neutrophil Count 6.23 10^3/uL (1.2-6.7); Basophils % 0.7; Eosinophils % 3.7; HCT 26.7 % (36.0-46.0); HGB 8.5 g/dL (11.2-15.7); Immature Grans % 0.5; Lymphocytes % 14.8; MCHC 31.8 % (32.0-36.0); MCV 94 fL (80-95); MPV 8.8 fL (8.0-11.0); Monocytes % 7.4; Neutrophils % 72.9; Platelet Count 362 10^3/uL (130-400); RBC 2.83 10^6/uL (3.93-5.22); RDW 14.4 % (11.7-14.6); RDW-SD 49.8 fL; WBC 8.54 10^3/uL (4.4-10.8)
[2023-07-16 06:53] LABS: BUN 6 mg/dL (7-18); CREATININE 0.8 mg/dL (0.55-1.02); Calcium 8.3 mg/dL (8.5-10.1); Chloride 106 mmol/L (98-107); Estimated GFR 73.06 (mL/min/1.73m2); Glucose 82 mg/dL (74-106); Potassium 3.4 mmol/L (3.5-5.1); Sodium 140 mmol/L (136-145)
[2023-07-16 07:29] VITALS: BP 110/69; PULSE 91; RESP 18; TEMP 36.5; O2SAT 96
[2023-07-16] MEDS: Cholecalciferol (Vitamin D3) 1,000 UNIT TAB 5000 UNITS PO (08:17)
[2023-07-16] MEDS: Omeprazole 20 MG CAPCR PO (08:17)
[2023-07-16] MEDS: Montelukast 10 MG TAB PO (08:17)
[2023-07-16] MEDS: Sulfameth/Trimeth DS TAB 1 TAB PO (08:18)
[2023-07-16] MEDS: Magnesium Chloride 64 MG TABCR PO (08:18)
[2023-07-16] MEDS: Budesonide/Formoterol 80/4.5 6.9 GM 60 PUFF INH IH (08:31)
[2023-07-16 09:08] VITALS: PULSE 150
--- NOTE | 2023-07-16 09:21 | PT.INIE ---
PT Notes Visit Reasons: Hypokalemia, Hypomagnesemia, Weakness, Wounds Physical Therapy Inpatient Initial Evaluation Date: 07/16/2023 Referring Doctor: Vikas Rivera MD PT Orders: PT CONSULT: Safety consult for DC. Fall safety assessment Precautions: Fall. Standard. Activity as tolerated. Patient Profile/Admitting Diagnosis: Jada is an 83-year-old female admitted for management of hypokalemia, hypertension, chronic obstructive lung disease, abrasion, and recent fall. PMHX: All Active Problems (Updated 07/14/23 @ 21:33 by Vikas Rivera) DVT prophylaxis (Acute) Hypokalemia (Acute) Vascular insufficiency of extremity (Acute) Foot pain, bilateral (Acute) Neck abrasion (Acute) Fall (Acute) Abrasion (Acute) Arthritis (Acute) Skin ulcer (Acute) Leg edema (Chronic) Pruritic disorder (Acute) Prediabetes (Acute) Cellulitis (Chronic) Eczema (Chronic) HTN (hypertension) (Chronic) Varicose veins of lower extremity (Acute) Total urinary incontinence (Acute) Mild persistent asthma without complication (Acute 03/19/18) Gastroesophageal reflux disease (Acute) Depressive disorder (Acute 08/03/13) Chronic obstructive lung disease (Acute) Medical History Skin tag 02/02- flesh color under right eye Superficial partial thickness burn of back excluding buttock Bruising Non-toxic uninodular goiter Hyperlipidemia Surgical History History of bilateral ligation of fallopian tubes Status post inguinal hernia repair History of cystoscopy hx UTI Ligation of fallopian tube Repair of inguinal hernia left, direct, Dr Nicole Shelley, [facility] Social History/Home Situation: Lives in a private residence with family and friends. Independent with all aspects of ADLs without an assistive device. Equipment Owned/DME: None Subjective: Feels much better. Agreeable to PT services. happy about going home today. Objective: General Observation: Seated on bedside chair. Contusion in B legs. Chronic on neck noted. Mental Status: Alert and oriented as to person, place, time, and purpose. Able to pay attention, focus, and respond appropriately. Pain: None reported today Vital Signs: [place] monitored by [facility] staff ROM: Right Upper Extremity: Shoulder Flexion WFL. Shoulder abduction WFL. Elbow flexion WFL. Wrist flexion WFL. Functional opening and closing of hand WFL. Left Upper Extremity: Shoulder Flexion WFL. Shoulder abduction WFL. Elbow flexion WFL. Wrist flexion WFL. Functional opening and closing of hand WFL. Right Lower Extremity: Hip flexion WFL. Hip abduction WFL. Knee flexion WFL. Ankle dorsiflexion WFL. Ankle plantarflexion WFL. Left Lower Extremity: Hip flexion WFL. Hip abduction WFL. Knee flexion WFL. Ankle dorsiflexion WFL. Ankle plantarflexion WFL. Strength: Right Upper Extremity: Shoulder flexors 4-/5. Shoulder abductors 4-/5. Elbow flexors 4-/5. Elbow extensors 4-/5. Oxyhydrogen Welder strong. Left Upper Extremity: Shoulder flexors 4-/5. Shoulder abductors 4-/5. Elbow flexors 4-/5. Elbow extensors 4-/5. Oxyhydrogen Welder strong. Right Lower Extremity: Hip flexors 3+/5. Hip abductors 3+/5. Knee flexors 4-/5. Knee extensors 3+/5. Ankle dorsiflexors 3+/5. Ankle plantarflexors 3+/5. Left Lower Extremity: Hip flexors 3+/5. Hip abductors 3+/5. Knee flexors 4-/5. Knee extensors 3+/5. Ankle dorsiflexors 3+/5. Ankle plantarflexors 3+/5. Bed Mobility/Transfers: Sit to stand with stand by assist with minimal cues for need to use B hands for support Stand to sit with stand by assist with minimal cues for need to use B hands for support Bed to toilet seat with stand by assist with minimal cues for need to use B hands for support Toilet seat to bedside recliner stand by assist with minimal cues for need to use B hands for support Gait: Facilitated safe and correct performanc eof level surfce ambulation using FWW with minimal cueing provided for AD management, limb advancement, and posture. Minimal SOB that resolved with rest. Stairs: Guided patient with safe and correct stair negotation technique on 6 x 4-inch steps and 4 x 6-inch steps while holding onto b rails for support with minimal cues given for movement sequence. Balance: Static Sitting: Normla Dynamic Sitting: Normal Static Standing: Fair Dynamic Standing: Fair Special Tests: Mobility Limitations Standardized Measure [facility] AM-PAC 6 clicks Basic Mobility Inpatient Short Form: Raw Score: 23 CMS Score: 11% deficit 4-Stage Balance Test: Feet together 10 seonds Semi-tandem 10 seconds Full tandem unable One-legged stance unable Informed Consent/Education: Patient was instructed in purpose of PT consult and plan of care. Agreeable to proceed with established PT POC to achieve personal goals. Assessment: Patient presents with clinical signs and symptoms consistent with current/admitting diagnoses that have resulted to mobility limitations, gait instability, generalized weakness, and overall ADL decline as demonstrated by the following impairment level findings: 1. Decreased strength to B UE/LE major muscle groups 2. Impaired sitting/standing balance 3. Impaired activity tolerance 4. Shortness of breath Impairments are contributing to the following functional limitations: 1. Decline in bed mobility skills 2. Decline in transfer skills 3. Difficulty with ambulation without assistive device and physical assistance 4. Increased completion time for mobility ADL performance 5. Increased risk for falls 6. Difficulty with managing steps alone safely Patient is assessed as a [id number] moderate complexity based on the following: History: [id number] with past medical history as indicated above Examination: Demonstrable impairment in strength, balance, and mobility level with underlying impairments and functional limitations as exhibited above as well as deficit score of 11% utilizing the [facility] Mobility Inpatient Short Form Presentation: Stable Decision Makin moderate complexity Goals: N/A. PT evaluation only and functional mobility training for discharge to home. Plan of Care/Treatment Plan: N/A. PT evaluation only and functional mobility training for discharge to home. DISCHARGE RECOMMENDATIONS: [] Home with no services [] [X] Home with services. Patient will benefit from home health PT services in order to progress mobility level using least restrictive assistive ambulatory device, assess home safety, identify additional equipment needs, and establish a functional maintenance program that will increase ability of patient to remain at home. [] Home with outpatient PT [] [] SNF for continued rehabilitation [] [] [facility] [] [] SNF versus LTC based on ability to participate and progress [] [X] Will require FWW to maximize independence and reduce fall risk at home TREATMENT CODE/TIME: 33038 x 28 minutes for 1 unit beginning at 9:21 AM Thank you for the opportunity to participate in the care of this patient. Brianna Ford PT, DPT, CLT [facility] [place], [place]
[2023-07-16] MEDS: OLANZapine 10 MG VIAL 5 MG IM (09:23)
[2023-07-16] MEDS: Water,Injection,Sterile 10 ML VIAL 2.1 ML IM (09:32)
--- NOTE | 2023-07-16 09:56 | PDOC.CMPRO ---
Date of service: 07/16/23 Time of Service: 09:56 Care Management Progress Note Progress Note Text Progress Note Text: S/O: A: Jada is an 83 year old woman admitted on 07/14/23 with hypokalemia P:Anticipate Jada will return home, possibly with new home health services, when medically cleared. She will follow up with community providers and plan of care and transport with family. CM will follow and continue to assess for discharge needs.
[2023-07-16 10:58] VITALS: BP 126/78; PULSE 75; RESP 16; TEMP 36.1; O2SAT 100
[2023-07-16] MEDS: Lachydrin 12% LOTION 225 GM BTL TP (10:59)
--- NOTE | 2023-07-16 14:21 | DSE_ITS ---
Date of service: 07/16/23 Time of Service: 14:21 DS: Diagnosis Discharge Diagnosis (1) Hypokalemia: Status: Acute Asessment and Plan: Replacement administered. K now 3.4. Monitor as outpt. (2) HTN (hypertension): Status: Chronic Asessment and Plan: Amlodipine stopped d/t pedal edema Cont home lasix. Discuss another BP med with PCP. Currently BP normal. (3) Chronic obstructive lung disease: Status: Acute Asessment and Plan: No acute exacerbation. Stable. (4) Abrasion: Status: Acute Asessment and Plan: No sign of an active infection at the site of neck abrasion or facial abrasion. Finish course of Bactrim prescribed as outpt. (5) Fall: Status: Acute Asessment and Plan: PT evaluated. Home with PT Discharge Plan Disposition Patient Disposition: Home W/Home Health Services Condition: Improving Discharge Details Reason For Visit: Hypokalemia, Hypomagnesemia, Weakness, Wounds Admit Date/Time: 07/14/23 18:34 Admit Provider: Vikas Rivera Attending Provider: Vikas Rivera Primary Care Provider: [facility] Hospital Course: 83 yo F with history of hypertension, obstructive asthma, recurrent falls and likely dementia who first presented to the emergency room 07/10 after a fall on 07/09. She was walking down stairs when she lost her footing and fell against the wooden banister and hit the floor. Trauma to her left neck but not her head. She had a work up in the ED with head/neck CT and was sent home. She went to the clinic the day before admission and was note to be more agitated and PCP was concerned for an infection of wound in left leg. She was started on Bactrim. Today her family brought her in with the concern that she is increasingly confused and has little energy. The patient states that she remembers the fall on the stairs and that she never had dizziness, chest pain, palpitations, LOC, or head trauma. She states she just tripped. However she cannot recall the ED and clinic visits. Of note, seen in the clinic 06/29 and started on 20mg of furosemide a day to address lower leg swelling. No other medication changes recently. See Diagnosis F/U with PCP in 1-2 weeks. Home Meds and New Rx's Prescriptions: Continued furosemide 20 mg tablet 20 mg PO DAILY Qty: 90 1RF fluticasone propionate 50 mcg/actuation spray,suspension 1 spray NS BID PRN (Reason: allergy symptoms) Qty: 16 4RF sulfamethoxazole-trimethoprim [Bactrim DS] 800-160 mg tablet 1 tab PO Q12H 5 Days Qty: 10 0RF Mag 64 64 MG tablet,delayed release (DR/EC) 64 mg PO BID Patient Comments: 02/27/19 er--currently on hold biotin 1 MG tablet 1 mg PO DAILY cholecalciferol (vitamin D3) 5,000 UNIT tablet 5,000 unit PO DAILY Lac-Hydrin Five 5 % lotion 1 applic topical DAILY Qty: 226 0RF montelukast [Singulair] 10 mg tablet 10 mg PO DAILY Qty: 90 4RF fluticasone propion-salmeterol [Advair HFA] 45-21 mcg/actuation HFA aerosol inhaler 2 puff inhalation BID Qty: 12 3RF albuterol sulfate 90 mcg/actuation HFA aerosol inhaler 2 puff inhalation QID PRN (Reason: shortness of breath or wheezing) Qty: 8.5 4RF omeprazole 20 mg capsule,delayed release(DR/EC) See Rx Instructions .ROUTE .COMPLEX Qty: 90 3RF Dose Instruction: TAKE ONE CAPSULE BY MOUTH ONCE DAILY Rx Instructions: TAKE ONE CAPSULE BY MOUTH ONCE DAILY (DME) Mepilex 4 X 4 bandage See Rx Instructions .Route Qty: 5 3RF Rx Instructions: change bandage twice weekly (DME) Xeroform Petrolatum Dressing 2 X 2 bandage See Rx Instructions .Route Qty: 150 0RF Rx Instructions: As directed Discontinued amlodipine 5 mg tablet 5 mg PO DAILY Qty: 90 4RF Discharge Instructions Activity:: Activity as Tolerated Equipment/Supplies:: No Equipment Needed Diet:: As Tolerated Discharge Orders Discharge Orders: Discharge Order (Routine); Ordered 07/16/23 Ordered By: Omar Askew DS: Summary Time Spent with Patient providing and/or coordinating discharge services: Greater than 30 minutes Status at Discharge Functional status at discharge: uses cane/walker Overall status at discharge: patient is back to baseline Mental Status: other (Intermittently confused; baseline dementia) Speech and Movement: speech clear Mood: congruent mood and other (Intermittently confused; baseline dementia) Affect: normal affect Exam Narrative Exam Narrative: GEN: Pleasant. Sitting in chair. NAD. HEENT: Sclera clear. MMM LUNGS: CTAB with normal effort CV: RRR with no murmurs ABD: +BS, soft EXT: BLE with tr edema. NEURO: Normal movement of 4 extremities. Normal speech and coordination SKIN: skin sloughing with peeling skin and underlying bruising left neck. Also ulcerations on nell LE, bruising and hyperpigmentation /erythema of lower legs;more on left. PSYCH: normal mood and affect. Some confusion noted. Psych Mental Status: other (Intermittently confused; baseline dementia) Speech and Movement: speech clear Mood: congruent mood and other (Intermittently confused; baseline dementia) Affect: normal affect DS: Data Vitals/I&O Vitals and I&O: Vital Signs Temperature 36.1 C L 07/16/23 10:58 Temperature Source Tympanic 07/16/23 10:58 Pulse 75 07/16/23 10:58 Pulse Rhythm Irregular 07/16/23 08:20 Respiratory Rate 16 07/16/23 10:58 Respiratory Effort Normal, Non-Labored 07/16/23 08:20 Respiratory Depth Normal 07/16/23 08:20 Respiratory Pattern Normal 07/16/23 08:20 Blood Pressure 126/78 07/16/23 10:58 Blood Pressure Position Sitting 07/14/23 16:01 Pulse Oximetry 100 07/16/23 10:58 Oxygen Delivery Method Room Air 07/16/23 10:58 Oxygen Flow Rate 0 07/16/23 10:58 Pain Level 0 07/16/23 10:58 Intake & Output 07/15/23 07/16/23 07/16/23 23:59 11:59 23:59 Intake Total 360 / 360 Output Total 300 / 400 850 / 850 Balance -300 / 360 -490 / -490 Intake: Oral 360 / 360 Output: Urine 300 / 400 850 / 850 Other: Urine Color Yellow Yellow Urine Appearance Clear Clear Urine Odor Normal None Comment Has a wik purewick Stool Size Small Stool Characteristics Liquid Voiding Methods Diaper Data Completed and Pending Labs on day of discharge: Labs from last 24 hours 07/16/23 07/15/23 06:10 14:08 WBC 8.54 RBC 2.83 L Hgb 8.5 L Hct 26.7 L MCV 94 MCH 30.0 MCHC 31.8 L RDW 14.4 Plt Count 362 MPV 8.8 Immature Gran % 0.5 Neutrophils % 72.9 Lymphocytes % 14.8 Monocytes % 7.4 Eosinophils % 3.7 Basophils % 0.7 Nucleated RBC % 0.0 Absolute Neutrophils 6.23 Absolute Lymphocytes 1.26 Absolute Monocytes 0.63 Absolute Eosinophils 0.32 Absolute Basophils 0.06 Sodium 140 Potassium 3.4 L Chloride 106 Carbon Dioxide 27.0 Anion Gap 7.0 BUN 6 L Creatinine 0.8 Est GFR (CKD-EPI 2020) 73.06 Glucose 82 Calcium 8.3 L Stl C.difficile Tox PCR Negative Preliminary micro results at discharge 07/14/23 16:42 Blood Culture - Preliminary Blood NO GROWTH 24 HOURS 07/14/23 16:25 Blood Culture - Preliminary Blood NO GROWTH 24 HOURS PFSH All Active Problems (Updated 07/15/23 @ 14:03 by Omar Askew MD) Weakness (Acute) DVT prophylaxis (Acute) Hypokalemia (Acute) Vascular insufficiency of extremity (Acute) Foot pain, bilateral (Acute) Neck abrasion (Acute) Fall (Acute) Abrasion (Acute) Arthritis (Acute) Skin ulcer (Acute) Leg edema (Chronic) Pruritic disorder (Acute) Prediabetes (Acute) Cellulitis (Chronic) Eczema (Chronic) HTN (hypertension) (Chronic) Varicose veins of lower extremity (Acute) Total urinary incontinence (Acute) Mild persistent asthma without complication (Acute 03/19/18) Gastroesophageal reflux disease (Acute) Depressive disorder (Acute 08/03/13) Chronic obstructive lung disease (Acute) Medical History Skin tag 02/02- flesh color under right eye Superficial partial thickness burn of back excluding buttock Bruising Non-toxic uninodular goiter Hyperlipidemia Surgical History History of bilateral ligation of fallopian tubes Status post inguinal hernia repair History of cystoscopy hx UTI Ligation of fallopian tube Repair of inguinal hernia left, direct, Dr Nicole Shelley, [facility] Family History Mother , age 70 Heart disease Asthma Father , age 65 Heart disease Cancer Sister , age 74 RA (rheumatoid arthritis) Heart disease Asthma Brother , 63 Asthma Cancer Diabetes Brother Essential hypertension Depression Heart disease Asthma Maternal Grandfather , 85 Heart disease Asthma Paternal Grandfather , DROWNED at age 81. Cancer Maternal Grandmother , in her 80s Diabetes Paternal Grandmother , 70 Stroke Son RA (rheumatoid arthritis) Daughter Diabetes Depression Stroke MS (multiple sclerosis) Asthma Social History Smoking/Tobacco Use Status: Current-Occasional Tobacco Type: cigarettes Quit status: quit date established Second Hand Exposure: Yes Smoking risk assessment performed?: Yes Alcohol Intake: current Alcohol Intake frequency: holidays/special occasions only Alcohol type: wine Drug use: Never Substance use type: does not use Caregiver/Support person: No Household members: none Housing: house Communication Needs: Corrective Lenses Do you need help understanding health information?: Never Pets and animals: No Sexually active: No What is your relationship status?: How often do you talk on the phone with friends or family?: three or more times per week How often do you get together with friends or relatives?: decline to answer How often do you attend mu-ism or confucianism services?: decline to answer Do you belong to any clubs or organized social groups?: no Panel score (0-1 are the most socially isolated patients): 1 What type of physical activity do you participate in: none Frequency: does not exercise Verito/Alevism: None Special verito needs: No Seatbelt use: always Helmet use: No Drive intox or ride w/intox route sales delivery drivers supervisor: No Do you feel safe at home: Yes Do you feel safe in your relationship?: Yes Time Spent with Patient Time Spent with Patient: 45-69 minutes Time was spent: preparing to see the patient(eg.review tests), obtaining and/or reviewing separately otained hiistory, ordering medications,tests, procedures, referring, communicating with other health wild animal caretaker, indepentently interpreting results, counseling the patient and care coordination
--- NOTE | 2023-07-16 14:41 | PDOC.HHF2F ---
Home Health Referral Home Health Orders Clinical synopsis of why skilled professionals are needed: Pt admitted after a fall with facial and neck abrasions, noted to have hypokalemia and hypomagnesemia. Lytes corrected. PT evaluated and would benefit from further conditioning/strength. Medical diagnosis necessitation home health referral: Ambulatory dysfunction / weakness Physical Therapist: Check all that apply Increase strength & endurance for safe mobility at home: Ordered To design/establish home maintenance program: Ordered Fall reduction therapy program for patient with history of frequent falls: Ordered Home safety evaluation and teaching/gait training including stair management (if applicable): Ordered Occupational Therapist: Evaluate and treat for patient unable to perform ADL/IADL/self-care: Ordered Home Bound Status Requires the aid of supportive device (check all that apply): Walker Patient has a condition such that leaving home is medically contraindicated (Describe): Fall risk Describe why leaving home would require a considerable and taxing effort: Requires frequent rest periods Encounter Date and Reason: I certify that a FTF encounter for this patient was performed on July 16, 2023 and that such encounter was related to the primary reason the patient requires home health services. The encounter was conducted in the following manner: By me as the certifying physician, RICE DRYER MECHANIC, PA or By an inpatient physician, RICE DRYER MECHANIC or PA during an inpatient stay who communicated findings to me, Certification And Authentication I certify that I composed the above information based on my clinical judgment relating to this patient's medical condition and, if applicable, clinical findings communicated to me by the NPP or inpatient physician who performed the FTF encounter. Name of Provider that will be monitoring home health services: Omar Askew
[2023-07-16 15:18] VITALS: BP 111/74; PULSE 104; RESP 16; TEMP 36.4; O2SAT 99
--- NOTE | 2023-07-16 16:29 | PDOC.CMDIS ---
Date of service: 07/16/23 Time of Service: 16:29 LACE Index Scoring Tool Questions: Length of Stay (in days): 2 Was the patient admitted via the E.D.?: Yes Comorbidities: Chronic Pulmonary Disease and Dementia E.D. Visits: 3 Answers: Total Score: 13 Risk of Readmission: High Risk Care Management Discharge Plan Reason for Hospitalization: Hypokalemia Discharge Plan: Jada will be discharged back to her friend Alessandra's house with new home health orders for PT and OT. She will follow up with her [facility]iders and plan of care and transport with family. Patient/Family Education Needs: Review of discharge instructions, limitations, follow up plan, discuss Ask Me Three Services Needed at Discharge: Home Health Care Services
== END 2023-07-16 18:56 | disposition home health service (06) | DRG 641 ==
LOC: ER 18:39 → MS 19:45
PROVIDERS: Family Medicine; Admitting Provider Family Medicine; Emergency Provider Registered Nurse Emergency; PCP Nurse Practitioner Family; Visit Provider Family Medicine
DX: E87.6 Hypokalemia (principal); L97.929 Non-pressure chronic ulcer of unspecified part of left lower leg with unspecified severity; L97.919 Non-pressure chronic ulcer of unspecified part of right lower leg with unspecified severity; I10 Essential (primary) hypertension; J44.9 Chronic obstructive pulmonary disease, unspecified; R29.6 Repeated falls; Z91.81 History of falling; W10.8XXA Fall (on) (from) other stairs and steps, initial encounter; F03.90 Unspecified dementia, unspecified severity, without behavioral disturbance, psychotic disturbance, mood disturbance, and anxiety; I87.2 Venous insufficiency (chronic) (peripheral); R73.03 Prediabetes; L30.9 Dermatitis, unspecified; N39.498 Other specified urinary incontinence; K21.9 Gastro-esophageal reflux disease without esophagitis; F32.A Depression, unspecified; J45.30 Mild persistent asthma, uncomplicated; I83.893 Varicose veins of bilateral lower extremities with other complications; F17.210 Nicotine dependence, cigarettes, uncomplicated; S10.83XA Contusion of other specified part of neck, initial encounter; S80.12XA Contusion of left lower leg, initial encounter; S80.11XA Contusion of right lower leg, initial encounter; S80.212A Abrasion, left knee, initial encounter; S00.81XA Abrasion of other part of head, initial encounter; E83.42 Hypomagnesemia; R53.1 Weakness
CPT/HCPCS: 00123; 36415; 73562; 80048; 80053; 87040; 87493; 87635; 93005; 94640; 97162; J1650; 70450; 81003; 81015; 83036; 83605; 83735; 84443; 84484; 85025; 85610; 93010; 94664; 99233; 99239; J3475; J3480

== ENCOUNTER 2023-07-21 15:05 | Outpatient (REF) | payer MEDICARE, SELFPAY ==
[2023-07-21 12:45] LABS: Bilirubin Negative (Negative); Blood Small (Negative); Clarity Clear (Clear); Glucose Negative (Negative); Ketones 15 mg/dL (Negative); Leukocyte Esterase Negative (Negative); Nitrite Negative (Negative); Specific Gravity >= 1.030 (1.005-1.025); Urobilinogen 0.2 mg/dL (Up to 0.2)
[2023-07-21 12:57] LABS: Bacteria Negative HPF (Negative); C & S Indicated? No; Casts Negative LPF (Negative); Crystals Negative HPF (Negative); Epithelial Cells Few HPF (Negative); Mucus Negative (Negative); WBC 0-2 HPF (0-5)
== END 2023-07-21 15:06 | disposition home or self-care (01) ==
LOC: LBN 15:05
PROVIDERS: PCP Nurse Practitioner Family; Visit Provider Nurse Practitioner Family
DX: R35.0 Frequency of micturition (principal)
CPT/HCPCS: 81003; 81015

== ENCOUNTER 2023-08-03 10:27 | Inpatient (IN) | payer MEDICARE, SELFPAY ==
[2023-08-03] VITALS (34 sets, daily range): BP systolic 115–138; BP diastolic 52–78; PULSE 72–116; RESP 13–36; TEMP 36.4–36.8; O2SAT 93–100
--- NOTE | 2023-08-03 10:48 | W.ED.GENAD ---
Discharge Plan Discharge Details Chief Complaint: GenMedical Clinical Impression: Generalized weakness Primary Care Provider: Cait Aguiar ED Provider: Vikas Kirk [place] Meds and New Rx's Prescriptions: No Action furosemide 20 mg tablet 20 mg PO DAILY Qty: 90 1RF Mag 64 64 MG tablet,delayed release (DR/EC) 64 mg PO BID Patient Comments: 02/27/19 er--currently on hold biotin 1 MG tablet 1 mg PO DAILY cholecalciferol (vitamin D3) 5,000 UNIT tablet 5,000 unit PO DAILY Lac-Hydrin Five 5 % lotion 1 applic topical DAILY Qty: 226 0RF montelukast [Singulair] 10 mg tablet 10 mg PO DAILY Qty: 90 4RF albuterol sulfate 90 mcg/actuation HFA aerosol inhaler 2 puff inhalation QID PRN (Reason: shortness of breath or wheezing) Qty: 8.5 4RF omeprazole 20 mg capsule,delayed release(DR/EC) See Rx Instructions .ROUTE .COMPLEX Qty: 90 3RF Dose Instruction: TAKE ONE CAPSULE BY MOUTH ONCE DAILY Rx Instructions: TAKE ONE CAPSULE BY MOUTH ONCE DAILY (DME) Mepilex 4 X 4 bandage See Rx Instructions .Route Qty: 5 3RF Rx Instructions: change bandage twice weekly fluticasone propion-salmeterol [Advair HFA] 45-21 mcg/actuation HFA aerosol inhaler 2 puff inhalation BID Qty: 12 3RF fluticasone propionate 50 mcg/actuation spray,suspension 1 spray NS BID PRN (Reason: allergy symptoms) Qty: 16 4RF lorazepam 0.5 mg tablet 0.5 mg PO QHS PRN (Reason: anxiety) Qty: 28 0RF (DME) Xeroform Petrolatum Dressing 2 X 2 bandage See Rx Instructions .Route Qty: 150 0RF Rx Instructions: As directed HPI General Date/Time Provider Initiated Documentation: 08/03/23 10:28. HPI Narrative: MDM This is an overall very well-appearing mildly tachycardic but normothermic and mildly confused 83-year-old female with generalized weakness concerning for the possibility of dehydration. Will assess for any acute electrolyte abnormalities. No pain out of proportion to suggest necrotizing soft tissue infection. No cough to suggest pneumonia. No clear dysuria nor frequency but given change in mental status will obtain urinalysis. No chest pain to suggest ACS so will defer ECG. No abdominal pain to suggest intra-abdominal process. No focal neurological deficits so my suspicion is low for CVA so I do not feel that patient requires a CT head nor would she be a tPA candidate. No recurrent trauma to suggest intracranial hemorrhage. Will reassess following labs and 500 cc of crystalloid however given that patient requires 1 person assistance do not feel that she is appropriate for discharge. We will have physical therapy see the patient if her labs are at baseline. Given no repeat fall will defer repeat head CT. Patient does have right lower extremity small wound but this does not appear to be infected at this point time so we will defer empiric antibiotics. 11:30 AM Basic metabolic panel showing no RO. Very mild hyperglycemia but no anion gap. Normal bicarbonate. Not consistent with DKA. Very mild hypokalemia. CBC showing mild leukocytosis. Mild normocytic anemia improved from prior. No thrombocytopenia. Will order physical therapy consult given reassuring labs. 1 PM Urinalysis showing large blood but nitrite and leukoesterase negative. Not consistent with UTI given no dysuria no frequency. Physical therapy at bedside working with patient. 1:22 PM Physical therapy worked with the patient who was present was not able to stand without assistance. Patient's niece reported that at times she is alone at home. As result she is not safe to be discharged. We will place an order for care management in the event that the patient can be transferred to a [facility] facility in the ED. We will also reach out to hospitalist in the event that care management cannot place her from the emergency department. 1:32 PM I spoke with Dr. Jaffe from the hospitalist team requested a chest x-ray given the patient's leukocytosis and her documented tachypnea. She also requested procalcitonin. We will update her after care management sees the patient. 2:15 PM Chest x-ray with no acute cardiopulmonary process. proBNP pending. 2:34 PM I spoke with Stefani Costello from care management who reported that patient's care providers at her residence were not comfortable taking her pack. We will reach out to Dr. Jaffe again to request hospitalization. There is apparently a nursing facility in the [facility] in which the patient's granddaughter has been attempting to get her placement. Unfortunately the patient's granddaughter is away this week. We will reach out again to Dr. Jaffe to request hospitalization. 2:[address] Jaffe and Aissatou will put in hospitalization orders for this patient. Chronic conditions affecting the care of the patient: Hypertension History obtained from an outside historian: Patient's niece External record review: [facility] EMR Medications: N/A Social determinants of health affecting disposition: N/A Management discussed with: Hospitalist Treatment/interventions considered: Discharge but deferred given patient and safe for discharge Response to therapies provided: N/A HPI This is an 83-year-old female with a history of hypertension arrived to the emergency department via private vehicle with her niece. She reportedly has been living with a cousin and required near total care from her daughter for the past week. She has had decreased energy for the past several days. Patient at baseline ambulates with a walker and was able to ambulate 3 days ago. Now her niece reports that she requires a 1 person assist. She did take a fall last month and was seen subsequently and had a head CT performed. Niece reports she has been more confused over the past 6 months. She took all of her home medications this morning. She endorses a generalized headache that she describes as mild and has been intermittent over the past week. She denies dysuria and frequency. No nausea fevers vomiting chest pain or shortness of breath. She has not noticed any weakness in 1 part of her body or the other. Exam General: Chronically ill-appearing in no acute distress speaking in complete sentences. Head: Normocephalic, atraumatic. Eye: Extraocular eye movements intact. No conjunctival injection. No scleral icterus. Ear, nose, mouth, throat: Grossly normal inspection. Normal voice, handling secretions normally. Neck: Trachea midline. Scattered healing abrasions to left side of anterior neck Cardiovascular: Well-perfused distal extremities. Regular rate and rhythm Respiratory: Nonlabored respiration. Clear lungs bilaterally. Gastrointestinal: Nondistended abdomen. Soft nontender. Musculoskeletal: No edema. Moving all 4 extremities spontaneously. Posterior aspect of right distal lower extremity underneath the dressing there is a small approximately 1 cm in diameter wound with no significant surrounding erythema. Skin: Normal for age and race, grossly normal temperature and turgor. No acute rash. Neurologic: Alert to person and place but not time. Cranial nerves II through XII intact grossly. No dysmetria. No dysdiadochokinesia. 5 out of 5 bilateral upper and lower extremity strength. Psychiatric: Mood and manner are appropriate. Grooming and personal hygiene are appropriate. Related Data Home Medications Medication Instructions Recorded Confirmed magnesium chloride 64 mg 64 mg PO BID 03/25/13 08/03/23 (magnesium chloride) tablet,delayed release (Mag 64) biotin 1 mg tablet 1 mg PO DAILY 08/13/16 08/03/23 cholecalciferol (vitamin D3) 125 5,000 unit PO DAILY 08/13/16 08/03/23 mcg (5,000 unit) tablet ammonium lactate 5 % lotion 1 applic topical DAILY #226 grams 04/08/22 08/03/23 (Lac-Hydrin Five) montelukast 10 mg tablet 10 mg PO DAILY #90 tab-caps 08/12/22 08/03/23 (Singulair) albuterol sulfate 90 mcg/actuation 2 puff inhalation QID PRN 02/19/23 08/03/23 aerosol inhaler shortness of breath or wheezing #8.5 grams omeprazole 20 mg capsule,delayed See Rx Instructions .Route 06/01/23 08/03/23 release .COMPLEX #90 caps foam bandage 4 X 4 (Mepilex) #5 ea 06/15/23 08/03/23 furosemide 20 mg tablet 20 mg PO DAILY #90 tabs 06/29/23 08/03/23 bismuth tribrom-petrolatum,wh 2 X #150 ea 07/10/23 08/03/23 2 bandage (Xeroform Petrolatum Dressing) fluticasone propionate 45 2 puff inhalation BID #12 grams 07/19/23 08/03/23 mcg-salmeterol 21 mcg/actuation HFA inhaler (Advair HFA) fluticasone propionate 50 1 spray NS BID PRN allergy 07/19/23 08/03/23 mcg/actuation nasal symptoms #16 grams spray,suspension lorazepam 0.5 mg tablet 0.5 mg PO QHS PRN anxiety #28 tabs 07/21/23 08/03/23 Previous Rx's Medication Instructions Recorded ammonium lactate 5 % lotion 1 applic topical DAILY #226 grams 04/08/22 (Lac-Hydrin Five) montelukast 10 mg tablet 10 mg PO DAILY #90 tab-caps 08/12/22 (Singulair) albuterol sulfate 90 mcg/actuation 2 puff inhalation QID PRN 02/19/23 aerosol inhaler shortness of breath or wheezing #8.5 grams omeprazole 20 mg capsule,delayed See Rx Instructions .Route 06/01/23 release .COMPLEX #90 caps foam bandage 4 X 4 (Mepilex) #5 ea 06/15/23 furosemide 20 mg tablet 20 mg PO DAILY #90 tabs 06/29/23 bismuth tribrom-petrolatum,wh 2 X #150 ea 07/10/23 2 bandage (Xeroform Petrolatum Dressing) fluticasone propionate 45 2 puff inhalation BID #12 grams 07/19/23 mcg-salmeterol 21 mcg/actuation HFA inhaler (Advair HFA) fluticasone propionate 50 1 spray NS BID PRN allergy 07/19/23 mcg/actuation nasal symptoms #16 grams spray,suspension lorazepam 0.5 mg tablet 0.5 mg PO QHS PRN anxiety #28 tabs 07/21/23 Allergies Allergy/AdvReac Type Severity Reaction Status Date / Time cephalexin Allergy Severe SKIN RASH Verified 08/03/23 10:42 Penicillins Allergy Intermediate SKIN RASH Verified 08/03/23 10:42 erythromycin base Allergy Unknown Verified 08/03/23 10:42 benzonatate AdvReac Intermediate migraine, Verified 08/03/23 10:42 eye burning levofloxacin [From Levaquin] AdvReac Intermediate mouth sores Verified 08/03/23 10:42 NSAIDS (Non-Steroidal AdvReac Intermediate ASTHMA Verified 08/03/23 10:42 Anti-Inflamma EXACERBATION simvastatin AdvReac Mild MYALGIAS Verified 08/03/23 10:42 aspirin AdvReac Unknown ASTHMA Verified 08/03/23 10:42 EXACERBATION pseudoephedrine AdvReac Unknown INSOMNIA Verified 08/03/23 10:42 General Stated Complaint: GenMedical LAMBERTO: 3 PFSH All Active Problems (Updated 08/03/23 @ 11:30 by Vikas Kirk MD) Generalized weakness (Acute) Vascular insufficiency of extremity (Acute) Foot pain, bilateral (Acute) Neck abrasion (Acute) Arthritis (Acute) Skin ulcer (Acute) Leg edema (Chronic) Pruritic disorder (Acute) Prediabetes (Acute) Cellulitis (Chronic) Eczema (Chronic) HTN (hypertension) (Chronic) Varicose veins of lower extremity (Acute) Total urinary incontinence (Acute) Mild persistent asthma without complication (Acute 03/19/18) Gastroesophageal reflux disease (Acute) Depressive disorder (Acute 08/03/13) Chronic obstructive lung disease (Acute) Medical History Skin tag 02/02- flesh color under right eye Superficial partial thickness burn of back excluding buttock Bruising Non-toxic uninodular goiter Hyperlipidemia Surgical History History of bilateral ligation of fallopian tubes Status post inguinal hernia repair History of cystoscopy hx UTI Ligation of fallopian tube Repair of inguinal hernia left, direct, Dr Nicole Shelley, [facility] Family History Mother , age 70 Heart disease Asthma Father , age 65 Heart disease Cancer Sister , age 74 RA (rheumatoid arthritis) Heart disease Asthma Brother , 63 Asthma Cancer Diabetes Brother Essential hypertension Depression Heart disease Asthma Maternal Grandfather , 85 Heart disease Asthma Paternal Grandfather , DROWNED at age 81. Cancer Maternal Grandmother , in her 80s Diabetes Paternal Grandmother , 70 Stroke Son RA (rheumatoid arthritis) Daughter Diabetes Depression Stroke MS (multiple sclerosis) Asthma Social History Smoking/Tobacco Use Status: Current-Occasional Tobacco Type: cigarettes Quit status: quit date established Second Hand Exposure: Yes Smoking risk assessment performed?: Yes Alcohol Intake: current Alcohol Intake frequency: holidays/special occasions only Alcohol type: wine Drug use: Never Substance use type: does not use Caregiver/Support person: No Household members: none Housing: house Communication Needs: Corrective Lenses Do you need help understanding health information?: Never Pets and animals: No Sexually active: No What is your relationship status?: How often do you talk on the phone with friends or family?: three or more times per week How often do you get together with friends or relatives?: decline to answer How often do you attend spiritism or orthodox services?: decline to answer Do you belong to any clubs or organized social groups?: no Panel score (0-1 are the most socially isolated patients): 1 What type of physical activity do you participate in: none Frequency: does not exercise Verito/Jewish: None Special verito needs: No Seatbelt use: always Helmet use: No Drive intox or ride w/intox carry all 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 Course Vital Signs Vital signs: Vital Signs Temperature 36.8 C 08/03/23 10:31 Pulse 100 H 08/03/23 10:31 Respiratory Rate 20 08/03/23 10:31 Blood Pressure 138/52 L 08/03/23 10:31 Pulse Oximetry 96 08/03/23 10:31 Temperature 36.8 C 08/03/23 10:38 Temperature Source Oral 08/03/23 10:31 Pulse 100 H 08/03/23 10:38 Respiratory Rate 15 08/03/23 10:38 Respiratory Effort Normal 08/03/23 10:38 Blood Pressure 138/52 L 08/03/23 10:38 Blood Pressure Position Sitting 08/03/23 10:31 Pulse Oximetry 96 08/03/23 10:38 Oxygen Delivery Method Room Air 08/03/23 10:31 Oxygen Flow Rate 0 08/03/23 10:31
[2023-08-03 11:07] LABS: Abs Immature Grans 0.07 10^3/uL (0.0-0.06); Absolute Basophil Count 0.06 10^3/uL (0.0-0.2); Absolute Eosinophil Count 0.05 10^3/uL (0.0-0.7); Absolute Lymphocyte Count 1.42 10^3/uL (1.2-3.4); Absolute Monocyte Count 1.18 10^3/uL (0.1-0.8); Absolute Neutrophil Count 9.64 10^3/uL (1.2-6.7); Basophils % 0.5; Eosinophils % 0.4; HCT 33.4 % (36.0-46.0); HGB 10.8 g/dL (11.2-15.7); Immature Grans % 0.6; Lymphocytes % 11.4; MCH 30.8 pg (27.0-33.0); MCHC 32.3 % (32.0-36.0); MCV 95 fL (80-95); MPV 8.9 fL (8.0-11.0); Monocytes % 9.5; Neutrophils % 77.6; Platelet Count 306 10^3/uL (130-400); RBC 3.51 10^6/uL (3.93-5.22); RDW 15.2 % (11.7-14.6); RDW-SD 52.5 fL; WBC 12.42 10^3/uL (4.4-10.8)
[2023-08-03] MEDS: Normal Saline 500 ML IV (11:15)
[2023-08-03 11:18] LABS: BUN 14 mg/dL (7-18); CREATININE 1.1 mg/dL (0.55-1.02); Calcium 9.2 mg/dL (8.5-10.1); Chloride 102 mmol/L (98-107); Estimated GFR 49.86 (mL/min/1.73m2); Glucose 133 mg/dL (74-106); Potassium 3.4 mmol/L (3.5-5.1); Sodium 140 mmol/L (136-145)
--- NOTE | 2023-08-03 12:50 | IN_ITS ---
PT Notes Physical Therapy Emergency Department Initial Evaluation Date: 08/03/2023 Referring Doctor: Vikas Jones MD PT Orders: PT CONSULT: Safety consult for DC. Fall safety assessment Precautions: Fall. Standard. Activity as tolerated. Patient Profile/Admitting Diagnosis: Jada is an 83-year-old female admitted recently to the hospital due to a recent fall returns to day for generalized weakness and difficulty walking. PMHX: All Active Problems (Updated 08/03/23 @ 11:30 by Vikas Kirk MD) Generalized weakness (Acute) Vascular insufficiency of extremity (Acute) Foot pain, bilateral (Acute) Neck abrasion (Acute) Arthritis (Acute) Skin ulcer (Acute) Leg edema (Chronic) Pruritic disorder (Acute) Prediabetes (Acute) Cellulitis (Chronic) Eczema (Chronic) HTN (hypertension) (Chronic) Varicose veins of lower extremity (Acute) Total urinary incontinence (Acute) Mild persistent asthma without complication (Acute 03/19/18) Gastroesophageal reflux disease (Acute) Depressive disorder (Acute 08/03/13) Chronic obstructive lung disease (Acute) Medical History Skin tag 02/02- flesh color under right eye Superficial partial thickness burn of back excluding buttock Bruising Non-toxic uninodular goiter Hyperlipidemia Surgical History History of bilateral ligation of fallopian tubes Status post inguinal hernia repair History of cystoscopy hx UTI Ligation of fallopian tube Repair of inguinal hernia left, direct, Dr Nicole Shelley, [facility] Social History/Home Situation: Lives alone in a private home with partial support from family and friends. Patient was discharged from hospital on 07/16 at stand by assist using FWW. Equipment Owned/DME: FWW Subjective: Patient thinks that she in a hospital in [place]. Thinks that tia Ware is her sister. Per Jeanie, although there are family/friends cloes by they are not able to fully help María. Jeanie adds that patient's NF placemetn to [facility] is in the [place]. Objective: General Observation: Resting in stretcher.. telemetry monitoring in place. Mental Status: Alert. Able to follow single step commands. Patient thinks that she in a hospital in [place]. Thinks that tia Ware is her sister. Pain: None reported today Vital Signs: HR to 125 mmHg walking a diatnce of 80 feet using FWW; RR 30 bpm ROM: Right Upper Extremity: Shoulder Flexion WFL. Shoulder abduction WFL. Elbow flexion WFL. Wrist flexion WFL. Functional opening and closing of hand WFL. Left Upper Extremity: Shoulder Flexion WFL. Shoulder abduction WFL. Elbow flexion WFL. Wrist flexion WFL. Functional opening and closing of hand WFL. Right Lower Extremity: Hip flexion WFL. Hip abduction WFL. Knee flexion WFL. Ankle dorsiflexion WFL. Ankle plantarflexion WFL. Left Lower Extremity: Hip flexion WFL. Hip abduction WFL. Knee flexion WFL. Ankle dorsiflexion WFL. Ankle plantarflexion WFL. Strength: Right Upper Extremity: Shoulder flexors 3+/5. Shoulder abductors 3+/5. Elbow flexors 3+/5. Elbow extensors 43+/5. Spotter Driver strong. Left Upper Extremity: Shoulder flexors 3+/5. Shoulder abductors 3+/5. Elbow flexors 3+/5. Elbow extensors 43+/5. Spotter Driver strong. Right Lower Extremity: Hip flexors 3+/5. Hip abductors 3+/5. Knee flexors 4-/5. Knee extensors 3+/5. Ankle dorsiflexors 3+/5. Ankle plantarflexors 3+/5. Left Lower Extremity: Hip flexors 3+/5. Hip abductors 3+/5. Knee flexors 4-/5. Knee extensors 3+/5. Ankle dorsiflexors 3+/5. Ankle plantarflexors 3+/5. Bed Mobility/Transfers: Moderate cues provided for safety and movement sequence Sit to stand minimal assist Stand to sit minimal assist GAIT: Facilitated safe and correct performance of level surface ambulation using FWW with minimal cueing provided for AD management, limb advancement, and posture. Covered a distance of about 80 feet. Obstacle negotiation considerably impaired--unable to fully discriminate obstacles, gently hitting walker legs of walker on door frame, carts, and garbage bin. HR up to 125 bpm, RR up to 30 bpm. Retropulses and excessive posterior sway. Stairs: Deferred Balance: Static Sitting: Good Dynamic Sitting: Fair Static Standing: Fair Dynamic Standing: Poor Special Tests: Mobility Limitations Standardized Measure [employer] AM-PAC 6 clicks Basic Mobility Inpatient Short Form: Raw Score: 12 CMS Score: 69% deficit 4-Stage Balance Test: Feet together unable Semi-tandem unable Full tandem unable One-legged stance unable Informed Consent/Education: Patient was instructed in purpose of PT consult. ASSESSMENT: Impaired obstacle negotiation and environemntal navigation, impaired balance with failed 4-Stage Balance Test, and mild confusion all increase risk for falls. Retropulsion and excessive posterior sway limits safe of ambulation performance. Patient presents with clinical signs and symptoms consistent with current/admitting diagnoses that have resulted to mobility limitations, gait instability, generalized weakness, and overall ADL decline as demonstrated by the following impairment level findings: 1. Decreased strength to B UE/LE major muscle groups 2. Impaired sitting/standing balance 3. Impaired activity tolerance 4. Shortness of breath 5. Confusion Impairments are contributing to the following functional limitations: 1. Decline in bed mobility skills 2. Decline in transfer skills 3. Difficulty with ambulation without assistive device and physical assistance 4. Increased completion time for mobility ADL performance 5. Increased risk for falls 6. Difficulty with managing steps alone safely Patient is assessed as a 50597 moderate complexity based on the following: History: [id number] with past medical history as indicated above Examination: Demonstrable impairment in strength, balance, and mobility level with underlying impairments and functional limitations as exhibited above as well as deficit score of 69% utilizing the [facility] Mobility Inpatient Short Form Presentation: Stable Decision Makin moderate complexity Goals: N/A. PT evaluation only and functional mobility training for discharge to home. Plan of Care/Treatment Plan: N/A. PT evaluation only and functional mobility training for discharge to home. DISCHARGE RECOMMENDATIONS: [] Home with no services [] [] Home with services [] [] Home with outpatient PT [] [] SNF for continued rehabilitation [] [] Longterm Care [] [] SNF versus LTC based on ability to participate and progress [] [X] SNF vs HH PT depending on availability of caregivers 06/04 for transfers and ambulation as patient needs constant asssist of 1 for mobility performance TREATMENT CODE/TIME: 05549 x 20 minutes for 1 unit, 32244 x 10 minutes beginning at 12:50 PM Thank you for the opportunity to participate in the care of this patient. Brianna Ford PT, DPT, CLT [facility], [place]
[2023-08-03 12:58] LABS: Bilirubin Small (Negative); Blood Large (Negative); Clarity Sl Cloudy (Clear); Glucose Negative (Negative); Ketones Negative (Negative); Leukocyte Esterase Negative (Negative); Nitrite Negative (Negative); Specific Gravity >= 1.030 (1.005-1.025); Urobilinogen 0.2 mg/dL (Up to 0.2)
[2023-08-03 13:06] LABS: WBC Negative HPF (0-5)
[2023-08-03 13:07] LABS: Bacteria Few HPF (Negative); C & S Indicated? No; Casts 0-2 Fine Granular LPF (Negative); Crystals Moderate Amorphous HPF (Negative); Epithelial Cells Moderate HPF (Negative); Mucus Heavy (Negative)
--- NOTE | 2023-08-03 13:30 | DI.RAD_ITS ---
Exam(s) XR PORTABLE CHEST AP EXAM: XR PORTABLE CHEST AP CLINICAL HISTORY: evaluate RR TECHNIQUE: 2D digital imaging was performed. COMPARISON: No exams were available for comparison FINDINGS: Leads overlie the chest. LUNGS: Clear. No pleural abnormality seen. HEART: Enlarged, stable. AORTA: Ectatic. Calcification at arch. BONES: Unremarkable for age. Soft tissues: Unremarkable. IMPRESSION: No acute findings. DATA REPOSITORY: RADIATION DOSE DELIVERED:
[2023-08-03 13:39] LABS: Source Nasal/Nares
[2023-08-03 14:11] LABS: COVID-19 PCR Negative (Negative)
[2023-08-03 14:28] LABS: Procalcitonin 0.1 ng/mL
--- NOTE | 2023-08-03 14:58 | HPE_ITS ---
Date of service: 08/03/23 Time of Service: 14:58 Assessment and Plan Assessment and plan (1) Ambulatory dysfunction: Status: Acute Assessment and plan: referred to observation, PT/OT evaluation and treatment pending case management for discharge planning. fall precautions. No source of infection identified (2) HTN (hypertension): Status: Chronic Assessment and plan: blood pressure controlled, will monitor. Qualifiers: Hypertension type: primary hypertension Qualified Code(s): I10 - Essential (primary) hypertension (3) Hypokalemia: Status: Acute Assessment and plan: d/t lasix, will replete and follow. (4) Gastroesophageal reflux disease: Status: Acute Assessment and plan: continue omeprazole (5) Chronic obstructive lung disease: Status: Acute Assessment and plan: stable, no exacerbation. continue home inhalers and monitor Discussed with Dr. Jaffe Qualifiers: COPD type: unspecified COPD Qualified Code(s): J44.9 - Chronic obstructive pulmonary disease, unspecified History of Present Illness History of Present Illness Chief Complaint: ambulatory dysfunction Narrative: presents to ED for evaluation of increasing generalized weakness, no recent medical illness. work up in the ED is unrevealing. no acute infection or electrolyte imbalance to explain symptoms. physical therapy consulted and patient was able to be safely reambulated for discharge to current living situation. case management consulted for discharge planning. hospitalist was asked to refer patient to observation. Review of Systems All systems reviewed & are unremarkable except as noted in HPI and below PFSH All Active Problems (Updated 08/03/23 @ 15:14 by Aissatou Gonzáles NP) Hypokalemia (Acute) Ambulatory dysfunction (Acute) Generalized weakness (Acute) Vascular insufficiency of extremity (Acute) Foot pain, bilateral (Acute) Neck abrasion (Acute) Arthritis (Acute) Skin ulcer (Acute) Leg edema (Chronic) Pruritic disorder (Acute) Prediabetes (Acute) Cellulitis (Chronic) Eczema (Chronic) HTN (hypertension) (Chronic) Varicose veins of lower extremity (Acute) Total urinary incontinence (Acute) Mild persistent asthma without complication (Acute 03/19/18) Gastroesophageal reflux disease (Acute) Depressive disorder (Acute 08/03/13) Chronic obstructive lung disease (Acute) Medical History Skin tag 02/02- flesh color under right eye Superficial partial thickness burn of back excluding buttock Bruising Non-toxic uninodular goiter Hyperlipidemia Surgical History History of bilateral ligation of fallopian tubes Status post inguinal hernia repair History of cystoscopy hx UTI Ligation of fallopian tube Repair of inguinal hernia left, direct, Dr Nicole Shelley, [facility] Family History Mother , age 70 Heart disease Asthma Father , age 65 Heart disease Cancer Sister , age 74 RA (rheumatoid arthritis) Heart disease Asthma Brother , 63 Asthma Cancer Diabetes Brother Essential hypertension Depression Heart disease Asthma Maternal Grandfather , 85 Heart disease Asthma Paternal Grandfather , DROWNED at age 81. Cancer Maternal Grandmother , in her 80s Diabetes Paternal Grandmother , 70 Stroke Son RA (rheumatoid arthritis) Daughter Diabetes Depression Stroke MS (multiple sclerosis) Asthma Social History Smoking/Tobacco Use Status: Current-Occasional Tobacco Type: cigarettes Quit status: quit date established Second Hand Exposure: Yes Smoking risk assessment performed?: Yes Alcohol Intake: current Alcohol Intake frequency: holidays/special occasions only Alcohol type: wine Drug use: Never Substance use type: does not use Caregiver/Support person: No Household members: none Housing: house Communication Needs: Corrective Lenses Do you need help understanding health information?: Never Pets and animals: No Sexually active: No What is your relationship status?: How often do you talk on the phone with friends or family?: three or more times per week How often do you get together with friends or relatives?: decline to answer How often do you attend oriental orthodox or yazidi services?: decline to answer Do you belong to any clubs or organized social groups?: no Panel score (0-1 are the most socially isolated patients): 1 What type of physical activity do you participate in: none Frequency: does not exercise Verito/Taoist: None Special verito needs: No Seatbelt use: always Helmet use: No Drive intox or ride w/intox tractor trailer moving van 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 Meds Allergies and Home Medications Allergies Allergy/AdvReac Type Severity Reaction Status Date / Time cephalexin Allergy Severe SKIN RASH Verified 08/03/23 10:42 Penicillins Allergy Intermediate SKIN RASH Verified 08/03/23 10:42 erythromycin base Allergy Unknown Verified 08/03/23 10:42 benzonatate AdvReac Intermediate migraine, Verified 08/03/23 10:42 eye burning levofloxacin [From Levaquin] AdvReac Intermediate mouth sores Verified 08/03/23 10:42 NSAIDS (Non-Steroidal AdvReac Intermediate ASTHMA Verified 08/03/23 10:42 Anti-Inflamma EXACERBATION simvastatin AdvReac Mild MYALGIAS Verified 08/03/23 10:42 aspirin AdvReac Unknown ASTHMA Verified 08/03/23 10:42 EXACERBATION pseudoephedrine AdvReac Unknown INSOMNIA Verified 08/03/23 10:42 Home Medications Medication Instructions Recorded Confirmed Type magnesium chloride 64 mg 64 mg PO BID 03/25/13 08/03/23 History (magnesium chloride) tablet,delayed release (Mag 64) biotin 1 mg tablet 1 mg PO DAILY 08/13/16 08/03/23 History cholecalciferol (vitamin D3) 125 5,000 unit PO DAILY 08/13/16 08/03/23 History mcg (5,000 unit) tablet ammonium lactate 5 % lotion 1 applic topical DAILY #226 grams 04/08/22 08/03/23 Rx (Lac-Hydrin Five) montelukast 10 mg tablet 10 mg PO DAILY #90 tab-caps 08/12/22 08/03/23 Rx (Singulair) albuterol sulfate 90 mcg/actuation 2 puff inhalation QID PRN 02/19/23 08/03/23 Rx aerosol inhaler shortness of breath or wheezing #8.5 grams omeprazole 20 mg capsule,delayed See Rx Instructions .Route 06/01/23 08/03/23 Rx release .COMPLEX #90 caps foam bandage 4 X 4 (Mepilex) #5 ea 06/15/23 08/03/23 Rx furosemide 20 mg tablet 20 mg PO DAILY #90 tabs 06/29/23 08/03/23 Rx bismuth tribrom-petrolatum,wh 2 X #150 ea 07/10/23 08/03/23 Rx 2 bandage (Xeroform Petrolatum Dressing) fluticasone propionate 45 2 puff inhalation BID #12 grams 07/19/23 08/03/23 Rx mcg-salmeterol 21 mcg/actuation HFA inhaler (Advair HFA) fluticasone propionate 50 1 spray NS BID PRN allergy 07/19/23 08/03/23 Rx mcg/actuation nasal symptoms #16 grams spray,suspension lorazepam 0.5 mg tablet 0.5 mg PO QHS PRN anxiety #28 tabs 07/21/23 08/03/23 Rx Exam Narrative Exam Narrative: Frail elderly woman of stated age in no acute distress head is atraumatic oral mucosa is slightly dry, neck is supple with no JVD , cardiovascular regular rate and rhythm her respirations are even and unlabored, diminished in the bases abdomen is soft nontender with positive bowel sounds moves all extremities Results Labs 08/03/23 10:49 08/04/23 09:30 Labs: Laboratory Results - last 24 hr 08/03/23 08/03/23 08/03/23 10:49 12:44 13:35 WBC 12.42 H RBC 3.51 L Hgb 10.8 L Hct 33.4 L MCV 95 MCH 30.8 MCHC 32.3 RDW 15.2 H Plt Count 306 MPV 8.9 Immature Gran % 0.6 Neutrophils % 77.6 Lymphocytes % 11.4 Monocytes % 9.5 Eosinophils % 0.4 Basophils % 0.5 Nucleated RBC % 0.0 Absolute Neutrophils 9.64 H Absolute Lymphocytes 1.42 Absolute Monocytes 1.18 H Absolute Eosinophils 0.05 Absolute Basophils 0.06 Sodium 140 Potassium 3.4 L Chloride 102 Carbon Dioxide 29.0 Anion Gap 9.0 BUN 14 Creatinine 1.1 H Est GFR (CKD-EPI 2020) 49.86 Glucose 133 H Calcium 9.2 Procalcitonin 0.1 Urine Color Dark Yellow Urine Clarity Sl Cloudy Urine pH 5.0 Ur Specific [place] >= 1.030 H Urine Protein 30 H Urine Ketones Negative Urine Blood Large H Urine Nitrite Negative Urine Bilirubin Small H Urine Urobilinogen 0.2 Ur Leukocyte Esterase Negative Urine RBC 10-20 H Urine WBC Negative Ur Epithelial Cells Moderate Urine Crystals Moderate Amorphous Urine Bacteria Few Urine Casts 0-2 Fine Granular Urine Mucus Heavy Ur Culture Indicated? No Urine Glucose Negative COVID-19 Source Nasal/Nares SARS-CoV-2 (PCR) Negative Last Vital Signs Temp 36.8 C 08/03/23 10:38 Pulse 73 08/03/23 11:30 Resp 19 08/03/23 13:30 BP 116/52 L 08/03/23 11:30 Pulse Ox 97 08/03/23 13:30 Time Spent Time spent with Patient: 40-54 minutes Time was spent: preparing to see the patient(eg.review tests), obtaining and/or reviewing separately otained hiistory, ordering medications,tests, procedures, indepentently interpreting results, counseling the patient and care coordination
[2023-08-03] MEDS: Lactated Ringers 1,000 ML 80 ML IV (16:51)
[2023-08-03] MEDS: Potassium Chloride 20 MEQ TABCR PO (16:51)
[2023-08-03] MEDS: Magnesium Chloride 64 MG TABCR PO (22:23)
[2023-08-03 23:51] LABS: C Diff PCR Negative (Negative)
[2023-08-04 00:18] VITALS: BP 133/78; PULSE 70; RESP 16; TEMP 36.7; O2SAT 97
[2023-08-04] MEDS: Normal Saline Flush 10 ML SYR IVP ×2 (06:16→21:35)
[2023-08-04 08:24] VITALS: BP 110/64; PULSE 63; RESP 18; TEMP 35.8; O2SAT 96
[2023-08-04] MEDS: Cholecalciferol (Vitamin D3) 1,000 UNIT TAB 5000 UNITS PO (08:32)
[2023-08-04] MEDS: Lachydrin 12% LOTION 225 GM BTL TP (08:32)
[2023-08-04] MEDS: Potassium Chloride 20 MEQ TABCR PO ×3 (08:33→17:28)
[2023-08-04] MEDS: Furosemide 20 MG TAB PO (08:33)
[2023-08-04] MEDS: Montelukast 10 MG TAB PO (08:33)
[2023-08-04] MEDS: Magnesium Chloride 64 MG TABCR PO ×2 (08:33→21:34)
[2023-08-04] MEDS: Omeprazole 20 MG CAPCR PO (08:33)
[2023-08-04] MEDS: Budesonide/Formoterol 80/4.5 10.2 GM 120 PUFF INH IH ×2 (08:34→20:15)
[2023-08-04 09:54] LABS: Anion Gap 3.3 mmol/L (3-11); BUN 13 mg/dL (7-18); CO2 30.7 mmol/L (21.0-32.0); CREATININE 0.8 mg/dL (0.55-1.02); Calcium 8.8 mg/dL (8.5-10.1); Chloride 103 mmol/L (98-107); Estimated GFR 73.06 (mL/min/1.73m2); Glucose 123 mg/dL (74-106); Magnesium 1.7 mg/dL (1.8-2.4); Potassium 3.4 mmol/L (3.5-5.1); Sodium 137 mmol/L (136-145)
[2023-08-04 11:22] VITALS: BP 111/68; PULSE 70; RESP 17; TEMP 36; O2SAT 97
--- NOTE | 2023-08-04 12:21 | INITIAL_ITS ---
Date of service: 08/04/23 Time of Service: 12:21 Care Management Initial Assmt Initial Assessment REASON FOR HOSPITALIZATION:: Ambulatory dysfunction PREVIOUS FUNCTIONAL STATUS/SOCIAL/FAMILY SUPPORTS:: Jada lives with her family friend Alessandra and several of Alessandra's children and grandchildren. She recently moved back to the area from [place], where she has been living near her granddaughter for more support. Jada has one son, Jesse, who lives in [facility] and her granddaughter Myla who lives in [place]. Jada also has a niece Jeanie Burns who has been very helpful and supportive. Jada is independent with ADLs at baseline and does not currently receive any community services. CURRENT FUNCTIONAL STATUS:: Jada was sleeping when CM attempted to meet with her. Per provider, her status will be changed to inpatient today for weakness. CM spoke to Jada's grandson, Jason, who stated that her caregiver is not able to continue to care for. CM sent a referral to [facility], at their request. Jason stated that they have been working with [facility] on a vermin exterminator care admission. CM spoke to Gala at [facility], who confirmed that Jason and Luisa have been filling out paperwork for vermin exterminator care, but that she would consider Jada for a short term rehab admission. CM will continue to follow. ADVANCE DIRECTIVES:: none on file Has patient been provided with info about the portal/API?: Yes Did the patient sign up for the portal?: Yes CODE STATUS:: Full Code INSURANCE COVERAGE / FINANCIAL ISSUES:: MCR. [employer] MCR supplement. CURRENT HOME/COMMUNITY SERVICES/EQUIPMENT:: none. PRIMARY CARE PHYSICIAN:: Cait Aguiar POTENTIAL DISCHARGE NEEDS:: SNF placement PATIENT/FAMILY EDUCATION NEEDS:: Review discharge instructions and limitations, discussion of self care needs including ask me three. ANTICIPATED BARRIERS TO DISCHARGE:: Jada can no longer return home, per family. TRANSPORTATION:: Via [facility], coordinated by CM. PLAN:: Anticipate Jada will go to SNF for short term rehab, prior to transitioning to vermin exterminator care. Her family has been working on an application at [facility]; CM will send a referral for short term rehab to [facility]. She will transport via private vehicle by family vs [facility]. She will follow up with her PCP and discharge plan of care. CM will continue to follow. PFSH All Active Problems (Updated 08/03/23 @ 15:14 by Aissatou Gonzáles NP) Hypokalemia (Acute) Ambulatory dysfunction (Acute) Generalized weakness (Acute) Vascular insufficiency of extremity (Acute) Foot pain, bilateral (Acute) Neck abrasion (Acute) Arthritis (Acute) Skin ulcer (Acute) Leg edema (Chronic) Pruritic disorder (Acute) Prediabetes (Acute) Cellulitis (Chronic) Eczema (Chronic) HTN (hypertension) (Chronic) Varicose veins of lower extremity (Acute) Total urinary incontinence (Acute) Mild persistent asthma without complication (Acute 03/19/18) Gastroesophageal reflux disease (Acute) Depressive disorder (Acute 08/03/13) Chronic obstructive lung disease (Acute) Medical History Skin tag 02/02- flesh color under right eye Superficial partial thickness burn of back excluding buttock Bruising Non-toxic uninodular goiter Hyperlipidemia Surgical History History of bilateral ligation of fallopian tubes Status post inguinal hernia repair History of cystoscopy hx UTI Ligation of fallopian tube Repair of inguinal hernia left, direct, Dr Nicole Shelley, [facility] Family History Mother , age 70 Heart disease Asthma Father , age 65 Heart disease Cancer Sister , age 74 RA (rheumatoid arthritis) Heart disease Asthma Brother , 63 Asthma Cancer Diabetes Brother Essential hypertension Depression Heart disease Asthma Maternal Grandfather , 85 Heart disease Asthma Paternal Grandfather , DROWNED at age 81. Cancer Maternal Grandmother , in her 80s Diabetes Paternal Grandmother , 70 Stroke Son RA (rheumatoid arthritis) Daughter Diabetes Depression Stroke MS (multiple sclerosis) Asthma Social History Smoking/Tobacco Use Status: Current-Occasional Tobacco Type: cigarettes Quit status: quit date established Second Hand Exposure: Yes Smoking risk assessment performed?: Yes Alcohol Intake: current Alcohol Intake frequency: holidays/special occasions only Alcohol type: wine Drug use: Never Substance use type: does not use Caregiver/Support person: No Household members: none Housing: house Communication Needs: Corrective Lenses Do you need help understanding health information?: Never Pets and animals: No Sexually active: No What is your relationship status?: How often do you talk on the phone with friends or family?: three or more times per week How often do you get together with friends or relatives?: decline to answer How often do you attend bahai or christianity services?: decline to answer Do you belong to any clubs or organized social groups?: no Panel score (0-1 are the most socially isolated patients): 1 What type of physical activity do you participate in: none Frequency: does not exercise Verito/Mandaeism: None Special verito needs: No Seatbelt use: always Helmet use: No Drive intox or ride w/intox cryogenic transport 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
--- NOTE | 2023-08-04 12:38 | PGE_ITS ---
Date of Service Date of service: 08/04/23 Time of Service: 12:38 Assessment and Plan Assessment and plan (1) Ambulatory dysfunction: Status: Acute Assessment and plan: continue PT/OT evaluation and treatment case management for discharge planning. fall precautions. (2) HTN (hypertension): Status: Chronic Assessment and plan: blood pressure controlled, will monitor. Qualifiers: Hypertension type: primary hypertension Qualified Code(s): I10 - Essential (primary) hypertension (3) Hypokalemia: Status: Acute Assessment and plan: d/t lasix, will replete and follow. (4) Gastroesophageal reflux disease: Status: Acute Assessment and plan: continue omeprazole (5) Chronic obstructive lung disease: Status: Acute Assessment and plan: stable, no exacerbation. continue home inhalers and monitor Qualifiers: COPD type: unspecified COPD Qualified Code(s): J44.9 - Chronic obstructive pulmonary disease, unspecified (6) Discharge planning issues: Status: Acute Assessment and plan: Due to ongoing frailty and ambulatory dysfunction patient will be changed to inpatient status. Case management is following Case is discussed with Dr. Jaffe Subjective Subjective Patient reports: no new complaints Interval history since last seen: Patient remains hemodynamically stable working with physical therapy she is afebrile no complaints of shortness of breath or chest pain Exam Narrative Exam Narrative: Frail elderly woman of stated age in no acute distress head is atraumatic oral mucosa is slightly dry, neck is supple with no JVD , cardiovascular regular rate and rhythm her respirations are even and unlabored, diminished in the bases abdomen is soft nontender with positive bowel sounds moves all extremities Objective Last Vital Signs Temp 36.0 C L 08/04/23 11:22 Pulse 70 08/04/23 11:22 Resp 17 08/04/23 11:22 BP 111/68 08/04/23 11:22 Pulse Ox 97 08/04/23 11:22 Laboratory Results - last 24 hr 08/03/23 08/03/23 08/03/23 10:49 12:44 13:35 Sodium Potassium Chloride Carbon Dioxide Anion Gap BUN Creatinine Est GFR (CKD-EPI 2020) Glucose Calcium Magnesium Procalcitonin 0.1 Urine Color Dark Yellow Urine Clarity Sl Cloudy Urine pH 5.0 Ur Specific [place] >= 1.030 H Urine Protein 30 H Urine Ketones Negative Urine Blood Large H Urine Nitrite Negative Urine Bilirubin Small H Urine Urobilinogen 0.2 Ur Leukocyte Esterase Negative Urine RBC 10-20 H Urine WBC Negative Ur Epithelial Cells Moderate Urine Crystals Moderate Amorphous Urine Bacteria Few Urine Casts 0-2 Fine Granular Urine Mucus Heavy Ur Culture Indicated? No Urine Glucose Negative Stl C.difficile Tox PCR COVID-19 Source Nasal/Nares SARS-CoV-2 (PCR) Negative 08/03/23 08/04/23 23:00 09:30 Sodium 137 Potassium 3.4 L Chloride 103 Carbon Dioxide 30.7 Anion Gap 3.3 BUN 13 Creatinine 0.8 Est GFR (CKD-EPI 2020) 73.06 Glucose 123 H Calcium 8.8 Magnesium 1.7 L Procalcitonin Urine Color Urine Clarity Urine pH Ur Specific [place] Urine Protein Urine Ketones Urine Blood Urine Nitrite Urine Bilirubin Urine Urobilinogen Ur Leukocyte Esterase Urine RBC Urine WBC Ur Epithelial Cells Urine Crystals Urine Bacteria Urine Casts Urine Mucus Ur Culture Indicated? Urine Glucose Stl C.difficile Tox PCR Negative COVID-19 Source SARS-CoV-2 (PCR) Time Spent with Patient Time Spent with Patient: 25-34 minutes Time was spent: preparing to see the patient(eg.review tests), obtaining and/or reviewing separately otained hiistory, ordering medications,tests, procedures and indepentently interpreting results
[2023-08-04] MEDS: Potassium Chloride 20 MEQ TABCR 40 MEQ PO (13:26)
[2023-08-04 15:43] VITALS: BP 123/77; PULSE 65; RESP 16; TEMP 36.8; O2SAT 96
[2023-08-04 23:20] VITALS: BP 128/71; PULSE 85; RESP 18; TEMP 38.2; O2SAT 94
[2023-08-05 02:25] LABS: Abs Immature Grans 0.04 10^3/uL (0.0-0.06); Absolute Basophil Count 0.06 10^3/uL (0.0-0.2); Absolute Eosinophil Count 0.12 10^3/uL (0.0-0.7); Absolute Lymphocyte Count 1.33 10^3/uL (1.2-3.4); Absolute Monocyte Count 0.82 10^3/uL (0.1-0.8); Absolute Neutrophil Count 8.43 10^3/uL (1.2-6.7); Basophils % 0.6; Eosinophils % 1.1; HCT 30.2 % (36.0-46.0); HGB 9.6 g/dL (11.2-15.7); Immature Grans % 0.4; Lymphocytes % 12.3; MCH 30.8 pg (27.0-33.0); MCHC 31.8 % (32.0-36.0); MCV 97 fL (80-95); MPV 9.2 fL (8.0-11.0); Monocytes % 7.6; Platelet Count 288 10^3/uL (130-400); RBC 3.12 10^6/uL (3.93-5.22); RDW 15.3 % (11.7-14.6); RDW-SD 53.3 fL
[2023-08-05 02:46] VITALS: BP 126/66; PULSE 76; RESP 16; TEMP 37.6; O2SAT 95
[2023-08-05] MEDS: Acetaminophen 325 MG TAB 650 MG PO (02:48)
[2023-08-05] MEDS: Sulfameth/Trimeth DS TAB 1 TAB PO (02:48)
[2023-08-05 02:49] LABS: Anion Gap 6.4 mmol/L (3-11); BUN 12 mg/dL (7-18); CO2 27.6 mmol/L (21.0-32.0); CREATININE 0.9 mg/dL (0.55-1.02); Calcium 9.3 mg/dL (8.5-10.1); Chloride 105 mmol/L (98-107); Estimated GFR 63.43 (mL/min/1.73m2); Glucose 93 mg/dL (74-106); Magnesium 1.5 mg/dL (1.8-2.4); Potassium 4.7 mmol/L (3.5-5.1); Sodium 139 mmol/L (136-145)
[2023-08-05] MEDS: VANCOMYCIN 1,250 MG in Normal Saline 250 ML 166.667 MG IVPB (03:12)
[2023-08-05] MEDS: Normal Saline Flush 10 ML SYR IVP (03:13)
[2023-08-05] MEDS: Water,Injection,Sterile 10 ML VIAL (03:17)
[2023-08-05] MEDS: Furosemide 20 MG TAB PO (08:25)
[2023-08-05] MEDS: Cholecalciferol (Vitamin D3) 1,000 UNIT TAB 5000 UNITS PO (08:25)
[2023-08-05] MEDS: Potassium Chloride 20 MEQ TABCR PO ×3 (08:25→17:03)
[2023-08-05] MEDS: Montelukast 10 MG TAB PO (08:25)
[2023-08-05] MEDS: Omeprazole 20 MG CAPCR PO (08:25)
[2023-08-05] MEDS: Magnesium Chloride 64 MG TABCR PO ×2 (08:26→19:31)
[2023-08-05 08:35] VITALS: BP 129/70; PULSE 77; RESP 17; TEMP 35.8; O2SAT 100
[2023-08-05] MEDS: Budesonide/Formoterol 80/4.5 10.2 GM 120 PUFF INH IH ×2 (09:09→19:57)
[2023-08-05] MEDS: Lachydrin 12% LOTION 225 GM BTL TP (09:23)
--- NOTE | 2023-08-05 12:00 | PGE_ITS ---
Date of Service Date of service: 08/05/23 Time of Service: 12:00 Assessment and Plan Assessment and plan (1) Cellulitis: Status: Chronic Assessment and plan: wound care consult started on vancomycin 2 skin tears on left upper ext, 2 on posterior right calf with purulent drainage, mepilex dressings intact (2) Ambulatory dysfunction: Status: Acute Assessment and plan: PT/OT evaluation and treatment case management for discharge planning. fall precautions. (3) HTN (hypertension): Status: Chronic Assessment and plan: blood pressure controlled, will monitor. Qualifiers: Hypertension type: primary hypertension Qualified Code(s): I10 - Essential (primary) hypertension (4) Hypokalemia: Status: Acute Assessment and plan: d/t lasix, will replete and follow. (5) Gastroesophageal reflux disease: Status: Acute Assessment and plan: continue omeprazole (6) Chronic obstructive lung disease: Status: Acute Assessment and plan: stable, no exacerbation. continue home inhalers and monitor Qualifiers: COPD type: unspecified COPD Qualified Code(s): J44.9 - Chronic obstructive pulmonary disease, unspecified (7) Hypomagnesemia: Status: Acute Assessment and plan: will continue oral supplementation, add IV 1 gm and follow (8) Discharge planning issues: Status: Acute Assessment and plan: DVT prophylaxis now made acute: teds and enoxaparin anticipate discharge to skilled rehab facility, referrals placed and pending. discussed with DR Jaffe Subjective Subjective Patient reports: tolerating liquids well, tolerating a regular diet and fever; denies shortness of breath Interval history since last seen: noted to have purulent drainage from 2 skin tears overnight with max temp of 38.2. Exam Narrative Exam Narrative: Frail elderly woman of stated age in no acute distress head is atraumatic oral mucosa is slightly dry, neck is supple with no JVD , cardiovascular regular rate and rhythm her respirations are even and unlabored, diminished in the bases abdomen is soft nontender with positive bowel sounds moves all extremities Skin tear to posterior right calf Mepilex is clean dry and intact no surrounding erythema skin with chronic discoloration. 2 areas to left upper extremity with Mepilex intact no surrounding erythema. Objective Last Vital Signs Temp 35.8 C L 08/05/23 08:35 Pulse 77 08/05/23 08:35 Resp 17 08/05/23 08:35 BP 129/70 08/05/23 08:35 Pulse Ox 100 08/05/23 08:35 Laboratory Results - last 24 hr 08/05/23 08/05/23 02:05 Unknown WBC 10.80 RBC 3.12 L Hgb 9.6 L Hct 30.2 L MCV 97 H MCH 30.8 MCHC 31.8 L RDW 15.3 H Plt Count 288 MPV 9.2 Immature Gran % 0.4 Neutrophils % 78.0 Lymphocytes % 12.3 Monocytes % 7.6 Eosinophils % 1.1 Basophils % 0.6 Nucleated RBC % 0.0 Absolute Neutrophils 8.43 H Absolute Lymphocytes 1.33 Absolute Monocytes 0.82 H Absolute Eosinophils 0.12 Absolute Basophils 0.06 Sodium 139 Potassium 4.7 D Chloride 105 Carbon Dioxide 27.6 Anion Gap 6.4 BUN 12 Creatinine 0.9 Est GFR (CKD-EPI 2020) 63.43 Glucose 93 Calcium 9.3 Magnesium 1.5 L Vancomycin Trough Cancelled Time Spent with Patient Time Spent with Patient: 35-49 minutes Time was spent: preparing to see the patient(eg.review tests), obtaining and/or reviewing separately otained hiistory, ordering medications,tests, procedures, referring, communicating with other health lawn care technician, indepentently interpreting results and care coordination
--- NOTE | 2023-08-05 12:17 | CMPROGNOTE_ITS ---
Date of service: 08/05/23 Time of Service: 12:17 Care Management Progress Note Progress Note Text Progress Note Text: S/O: Jada was sitting up in her chair when CM met with her. She stated that she is doing ok today. Per report, she had a fever overnight. She is being closely monitored. CM discussed her discharge plan, stating that [facility] is reviewing her referral for admission, possibly early next week, pending approval and bed availability. CM called [facility] today to follow up and left a message. Jada is very happy with this plan, and is looking forward to short term rehab at [facility]. CM will continue to follow. A: Jada is an 83 year old female admitted to [facility] on 08/03/23 for ambulatory dysfunction. P: Anticipate Pat will go to SNF for short term rehab, prior to transitioning to ferry terminal supervisor care. Her family has been working on an application at [facility]; CM will send a referral for short term rehab to [facility]. She will transport via private vehicle by family vs [facility]. She will follow up with her PCP and discharge plan of care. CM will continue to follow.
[2023-08-05 15:34] VITALS: BP 120/77; PULSE 94; RESP 18; TEMP 36.4; O2SAT 100
[2023-08-05] MEDS: MAGNESIUM SULFATE 1 GM/100 ML BAG IVPB (18:20)
[2023-08-05 23:28] VITALS: BP 122/70; PULSE 86; RESP 18; TEMP 37.7; O2SAT 97
[2023-08-06] MEDS: Normal Saline Flush 10 ML SYR IVP ×2 (03:25→08:11)
[2023-08-06] MEDS: VANCOMYCIN/WATER (PEG) 750 MG/150 ML BAG 150 MG IV (04:17)
[2023-08-06 07:07] LABS: Abs Immature Grans 0.05 10^3/uL (0.0-0.06); Absolute Basophil Count 0.04 10^3/uL (0.0-0.2); Absolute Eosinophil Count 0.08 10^3/uL (0.0-0.7); Absolute Lymphocyte Count 1.19 10^3/uL (1.2-3.4); Absolute Monocyte Count 0.47 10^3/uL (0.1-0.8); Absolute Neutrophil Count 6.61 10^3/uL (1.2-6.7); Basophils % 0.5; Eosinophils % 0.9; HCT 46.4 % (36.0-46.0); HGB 15.1 g/dL (11.2-15.7); Immature Grans % 0.6; Lymphocytes % 14.1; MCHC 32.5 % (32.0-36.0); MCV 95 fL (80-95); MPV 9.1 fL (8.0-11.0); Monocytes % 5.6; Neutrophils % 78.3; Platelet Count 178 10^3/uL (130-400); RBC 4.87 10^6/uL (3.93-5.22); RDW 15.3 % (11.7-14.6); RDW-SD 53.2 fL; WBC 8.44 10^3/uL (4.4-10.8)
[2023-08-06 07:10] LABS: Anion Gap 10.9 mmol/L (3-11); BUN 13 mg/dL (7-18); CO2 22.1 mmol/L (21.0-32.0); CREATININE 1.2 mg/dL (0.55-1.02); Calcium 9.5 mg/dL (8.5-10.1); Chloride 103 mmol/L (98-107); Estimated GFR 44.91 (mL/min/1.73m2); Glucose 103 mg/dL (74-106); Potassium 5.5 mmol/L (3.5-5.1); Sodium 136 mmol/L (136-145)
[2023-08-06 07:26] VITALS: BP 103/59; PULSE 78; RESP 20; TEMP 36.1; O2SAT 95
[2023-08-06] MEDS: Cholecalciferol (Vitamin D3) 1,000 UNIT TAB 5000 UNITS PO (08:09)
[2023-08-06] MEDS: Enoxaparin 40 MG/0.4 ML SYR SC (08:10)
[2023-08-06] MEDS: Furosemide 20 MG TAB PO (08:10)
[2023-08-06] MEDS: Montelukast 10 MG TAB PO (08:10)
[2023-08-06] MEDS: Magnesium Chloride 64 MG TABCR PO ×2 (08:10→20:12)
[2023-08-06] MEDS: Omeprazole 20 MG CAPCR PO (08:10)
[2023-08-06] MEDS: Budesonide/Formoterol 80/4.5 10.2 GM 120 PUFF INH IH ×2 (08:12→20:12)
--- NOTE | 2023-08-06 09:50 | W.PM.PROGNOT ---
Date of Service Date of service: 08/06/23 Time of Service: 09:51 Assessment and Plan Assessment and plan (1) Cellulitis: Status: Chronic Assessment and plan: wound care consult started on vancomycin. MRSA PCR ordered. No growth seen in blood blood shamir urine cultures for 24 hours Skin tears on left upper ext and on posterior right calf with purulent drainage initially but not at this time mepilex dressings remain intact (2) Ambulatory dysfunction: Status: Acute Assessment and plan: PT/OT evaluation and treatment: 2 assist by staff to go to [facility] [place] case management for discharge planning. fall precautions. (3) HTN (hypertension): Status: Chronic Assessment and plan: blood pressure at this time controlled, will continue to monitor. Qualifiers: Hypertension type: primary hypertension Qualified Code(s): I10 - Essential (primary) hypertension (4) Hypokalemia: Status: Acute Assessment and plan: d/t lasix, will replete and follow. k 5.5 this AM , repeating labs -K 3.9 . BMP in AM (5) Gastroesophageal reflux disease: Status: Acute Assessment and plan: Will continue omeprazole (6) Chronic obstructive lung disease: Status: Acute Assessment and plan: No exacerbation. Will continue home inhalers and monitor Qualifiers: COPD type: unspecified COPD Qualified Code(s): J44.9 - Chronic obstructive pulmonary disease, unspecified (7) Hypomagnesemia: Status: Acute Assessment and plan: will continue oral supplementation, add IV 1 gm and follow Mg in AM (8) Discharge planning issues: Status: Acute Assessment and plan: DVT prophylaxis now made acute: teds and enoxaparin anticipate discharge to skilled rehab facility, referrals placed and pending. discussed with Dr. Isidro Subjective Subjective Patient reports: no new complaints, feels better, tolerating liquids well, tolerating a regular diet, voiding w/o difficulty, flatus and bowel movement; denies still having pain, diarrhea, nausea, vomiting, shortness of breath or fever Exam Narrative Exam Narrative: Constitutional The patient is lying in bed comfortable and pleasant, cooperative during the interview. The patient iswithout acute distress. HENMT: Head is atraumatic, normocephalic. Facial structures with normal appearance Eyes: Well aligned Neck: Normal ROM Neuro:alert and oriented to self, person.Knows she is in [place] and that is thanksgiving. No neurological focal deficit. Chest:Chest is symmetrical and normal appearance Resp: Normal respiratory pattern, speaks in full sentences, unlabored breathing, clear lung bilaterally with decreased basilar breath sounds Cardio: regular rhythm, S1, S2, no murmur, capillary refill<3 sec., bilateral radial and dorsalis pedis pulses are positive, palpable GI: Abdomen is not distended, soft and non tender, bowel sounds are present : no bladder distension Back/spine/Pelvis: No back tenderness, normal alignment Integumentary: Mepilex DCI to right calf, no pus noticed Extremities: strength 3/5 to bilateral lower ext. and 4/5 to upper extremities Psych: RASS 0, congruent mood and normal affect. Objective Last Vital Signs Temp 36.1 C L 08/06/23 07:26 Pulse 78 08/06/23 07:26 Resp 20 08/06/23 07:26 BP 103/59 L 08/06/23 07:26 Pulse Ox 95 08/06/23 07:26 Laboratory Results - last 24 hr 08/05/23 08/06/23 21:38 05:50 WBC 8.44 RBC 4.87 Hgb 15.1 D Hct 46.4 H MCV 95 MCH 31.0 MCHC 32.5 RDW 15.3 H Plt Count 178 MPV 9.1 Immature Gran % 0.6 Neutrophils % 78.3 Lymphocytes % 14.1 Monocytes % 5.6 Eosinophils % 0.9 Basophils % 0.5 Nucleated RBC % 0.0 Absolute Neutrophils 6.61 Absolute Lymphocytes 1.19 L Absolute Monocytes 0.47 Absolute Eosinophils 0.08 Absolute Basophils 0.04 Sodium 136 Potassium 5.5 H Chloride 103 Carbon Dioxide 22.1 Anion Gap 10.9 BUN 13 Creatinine 1.2 H Est GFR (CKD-EPI 2020) 44.91 Glucose 103 Calcium 9.5 Magnesium 2.0 Vancomycin Trough 17.0 Time Spent with Patient Time Spent with Patient: >50 minutes Time was spent: preparing to see the patient(eg.review tests), ordering medications,tests, procedures, referring, communicating with other health childcare center administrator, indepentently interpreting results, counseling the patient and care coordination
[2023-08-06] MEDS: Lachydrin 12% LOTION 225 GM BTL TP (09:56)
[2023-08-06 10:07] LABS: HCT 29.8 % (36.0-46.0); HGB 9.6 g/dL (11.2-15.7); MCH 31.1 pg (27.0-33.0); MCHC 32.2 % (32.0-36.0); MCV 96 fL (80-95); MPV 9.3 fL (8.0-11.0); Platelet Count 259 10^3/uL (130-400); RBC 3.09 10^6/uL (3.93-5.22); RDW 15.4 % (11.7-14.6); RDW-SD 53.1 fL
[2023-08-06 10:11] LABS: WBC 10.21 10^3/uL (4.4-10.8)
[2023-08-06 10:23] LABS: ALT 11 U/L (14-59); AST 18 U/L (15-37); Albumin 2.3 g/dL (3.4-5.0); Alkaline Phosphatase 99 U/L (46-116); Anion Gap 10.2 mmol/L (3-11); BUN 13 mg/dL (7-18); Bilirubin, Total 0.5 mg/dL (0.2-1.0); CO2 21.8 mmol/L (21.0-32.0); CREATININE 1.3 mg/dL (0.55-1.02); Calcium 9.5 mg/dL (8.5-10.1); Chloride 102 mmol/L (98-107); Glucose 161 mg/dL (74-106); Sodium 134 mmol/L (136-145); Total Protein 6.9 g/dL (6.4-8.2)
[2023-08-06 10:35] LABS: Potassium 3.9 mmol/L (3.5-5.1)
[2023-08-06 13:43] LABS: MRSA PCR Negative (Negative)
[2023-08-06 14:59] VITALS: BP 108/71; PULSE 72; RESP 20; TEMP 36.5; O2SAT 96
[2023-08-06 18:43] VITALS: BP 158/90; PULSE 120; RESP 22; TEMP 36.6; O2SAT 99
[2023-08-06 19:23] VITALS: BP 129/84; PULSE 102; RESP 18; TEMP 36.8; O2SAT 99
[2023-08-06 23:01] VITALS: BP 119/69; PULSE 77; RESP 16; TEMP 36.3; O2SAT 98
[2023-08-07 03:36] LABS: Abs Immature Grans 0.04 10^3/uL (0.0-0.06); Absolute Basophil Count 0.06 10^3/uL (0.0-0.2); Absolute Lymphocyte Count 1.44 10^3/uL (1.2-3.4); Absolute Monocyte Count 0.74 10^3/uL (0.1-0.8); Absolute Neutrophil Count 6.94 10^3/uL (1.2-6.7); Basophils % 0.6; Eosinophils % 2.1; HCT 27.3 % (36.0-46.0); Immature Grans % 0.4; Lymphocytes % 15.3; MCH 31.1 pg (27.0-33.0); MCV 95 fL (80-95); MPV 9.1 fL (8.0-11.0); Monocytes % 7.9; Neutrophils % 73.7; Platelet Count 242 10^3/uL (130-400); RBC 2.89 10^6/uL (3.93-5.22); RDW 15.1 % (11.7-14.6); RDW-SD 51.8 fL; WBC 9.42 10^3/uL (4.4-10.8)
[2023-08-07 03:46] LABS: Anion Gap 6.7 mmol/L (3-11); BUN 11 mg/dL (7-18); CO2 25.3 mmol/L (21.0-32.0); CREATININE 1.1 mg/dL (0.55-1.02); Calcium 9.2 mg/dL (8.5-10.1); Chloride 101 mmol/L (98-107); Estimated GFR 49.86 (mL/min/1.73m2); Glucose 94 mg/dL (74-106); Magnesium 1.7 mg/dL (1.8-2.4); Potassium 3.8 mmol/L (3.5-5.1); Sodium 133 mmol/L (136-145)
[2023-08-07 03:56] LABS: Vancomycin, Trough 15.8 ug/mL (10.0-20.0)
[2023-08-07] MEDS: Normal Saline Flush 10 ML SYR IVP ×4 (04:21→19:28)
[2023-08-07] MEDS: VANCOMYCIN/WATER (PEG) 750 MG/150 ML BAG 150 MG IV (04:22)
[2023-08-07 04:31] VITALS: BP 121/66; PULSE 75; RESP 16; TEMP 36; O2SAT 98
[2023-08-07 07:33] VITALS: BP 113/75; PULSE 68; RESP 17; TEMP 36.7; O2SAT 96
[2023-08-07] MEDS: Budesonide/Formoterol 80/4.5 10.2 GM 120 PUFF INH IH ×2 (07:56→19:57)
[2023-08-07] MEDS: Cholecalciferol (Vitamin D3) 1,000 UNIT TAB 5000 UNITS PO (08:00)
[2023-08-07] MEDS: Magnesium Chloride 64 MG TABCR PO ×2 (08:01→19:28)
[2023-08-07] MEDS: Furosemide 20 MG TAB PO (08:01)
[2023-08-07] MEDS: Lachydrin 12% LOTION 225 GM BTL TP (08:02)
[2023-08-07] MEDS: Omeprazole 20 MG CAPCR PO (08:02)
[2023-08-07] MEDS: Montelukast 10 MG TAB PO (08:02)
[2023-08-07] MEDS: Enoxaparin 40 MG/0.4 ML SYR SC (08:02)
[2023-08-07] MEDS: Acetaminophen 325 MG TAB 650 MG PO (11:33)
--- NOTE | 2023-08-07 13:17 | PGE_ITS ---
Date of Service Date of service: 08/07/23 Time of Service: 13:17 Assessment and Plan Assessment and plan (1) Cellulitis: Status: Chronic Assessment and plan: wound care consult started on vancomycin. MRSA PCR ordered and negative; clindamycin considered but eliminated d/t higher risk of C. diff; vancomycin changed to Linezolid initially but Trimethoprim-Sulfamethoxazole ordered as per pharmacy consultation and Vancomycin stopped . No growth seen in blood blood and urine cultures for 48 hours Skin tears on left upper ext and on posterior right calf with purulent drainage initially but not at this time mepilex dressings remain intact (2) Ambulatory dysfunction: Status: Acute Assessment and plan: PT/OT evaluation and treatment: 2 assist by staff to go to [facility] case management for discharge planning. fall precautions. (3) HTN (hypertension): Status: Chronic Assessment and plan: blood pressure at this time controlled, will continue to monitor. Qualifiers: Hypertension type: primary hypertension Qualified Code(s): I10 - Essential (primary) hypertension (4) Hypokalemia: Status: Acute Assessment and plan: d/t lasix, will replete and follow. k 5.5 this AM , repeating labs -K 3.9 . BMP in AM (5) Gastroesophageal reflux disease: Status: Acute Assessment and plan: Will continue omeprazole (6) Chronic obstructive lung disease: Status: Acute Assessment and plan: No exacerbation. Will continue home inhalers and monitor Qualifiers: COPD type: unspecified COPD Qualified Code(s): J44.9 - Chronic obstructive pulmonary disease, unspecified (7) Hypomagnesemia: Status: Acute Assessment and plan: will continue oral supplementation, add IV 1 gm and follow Mg in AM (8) Discharge planning issues: Status: Acute Assessment and plan: DVT prophylaxis now made acute: teds and enoxaparin anticipate discharge to skilled rehab facility, referrals placed and pending. discussed with Dr. Isidro Subjective Subjective Patient reports: no new complaints (except for right ear pain that has been intermittent for a 1- 2 weeks), feels better, tolerating liquids well, tolerating a regular diet, voiding w/o difficulty, flatus and bowel movement; denies diarrhea, nausea, vomiting, shortness of breath or fever Exam Narrative Exam Narrative: Constitutional The patient is lying in bed, cooperative during the interview. The patient is without acute distress. HENMT: Head is atraumatic, normocephalic. Facial structures with normal appearance Eyes: Well aligned Neck: Normal ROM but tenderness with palpation Neuro:alert and oriented to self, person.Knows she is in [place] and that it was thanks[place]. No neurological focal deficit. Chest:Chest is symmetrical and normal appearance Resp: Normal respiratory pattern, speaks in full sentences, unlabored breathing, clear lung bilaterally with decreased basilar breath sounds Cardio: regular rhythm, S1, S2, no murmur, capillary refill<3 sec., bilateral radial and dorsalis pedis pulses are positive, palpable GI: Abdomen is not distended, soft and non tender, bowel sounds are present : no bladder distension Back/spine/Pelvis: No back tenderness, normal alignment Integumentary: No skin lesions or rash Extremities: strength 3/5 to bilateral lower ext. and 4/5 to upper extremities, mepilex to her right LE is DCI Psych: RASS 0, congruent mood and normal affect. Objective Last Vital Signs Temp 36.7 C 08/07/23 07:33 Pulse 68 08/07/23 07:33 Resp 17 08/07/23 07:33 BP 113/75 08/07/23 07:33 Pulse Ox 96 08/07/23 07:33 Laboratory Results - last 24 hr 08/06/23 08/07/23 11:30 03:25 WBC 9.42 RBC 2.89 L Hgb 9.0 L Hct 27.3 L MCV 95 MCH 31.1 MCHC 33.0 RDW 15.1 H Plt Count 242 MPV 9.1 Immature Gran % 0.4 Neutrophils % 73.7 Lymphocytes % 15.3 Monocytes % 7.9 Eosinophils % 2.1 Basophils % 0.6 Nucleated RBC % 0.0 Absolute Neutrophils 6.94 H Absolute Lymphocytes 1.44 Absolute Monocytes 0.74 Absolute Eosinophils 0.20 Absolute Basophils 0.06 Sodium 133 L Potassium 3.8 Chloride 101 Carbon Dioxide 25.3 Anion Gap 6.7 BUN 11 Creatinine 1.1 H Est GFR (CKD-EPI 2020) 49.86 Glucose 94 Calcium 9.2 Magnesium 1.7 L Vancomycin Trough 15.8 MRSA (TEM-PCR) Negative Time Spent with Patient Time Spent with Patient: >50 minutes Time was spent: preparing to see the patient(eg.review tests), ordering medications,tests, procedures, referring, communicating with other health care consultant, indepentently interpreting results, counseling the patient and care coordination
[2023-08-07] MEDS: LINEZOLID 600 MG/300 ML BAG 300 MG IVPB (15:05)
[2023-08-07] MEDS: Normal Saline 500 ML 30 ML IV (15:06)
[2023-08-07 15:08] VITALS: BP 137/83; PULSE 87; RESP 18; TEMP 35.7; O2SAT 93
[2023-08-07] MEDS: Sulfameth/Trimeth DS TAB 1 TAB PO (19:28)
[2023-08-08 01:28] VITALS: BP 133/82; PULSE 78; RESP 15; TEMP 36.2; O2SAT 98
[2023-08-08 04:17] LABS: Vancomycin, Trough 16.7 ug/mL (10.0-20.0)
[2023-08-08 07:48] VITALS: BP 116/65; PULSE 90; RESP 18; TEMP 36.6; O2SAT 98
[2023-08-08] MEDS: Budesonide/Formoterol 80/4.5 10.2 GM 120 PUFF INH IH ×2 (08:18→19:55)
[2023-08-08] MEDS: Enoxaparin 40 MG/0.4 ML SYR SC (08:22)
[2023-08-08] MEDS: Montelukast 10 MG TAB PO (08:22)
[2023-08-08] MEDS: Cholecalciferol (Vitamin D3) 1,000 UNIT TAB 5000 UNITS PO (08:22)
[2023-08-08] MEDS: Omeprazole 20 MG CAPCR PO (08:22)
[2023-08-08] MEDS: Furosemide 20 MG TAB PO (08:22)
[2023-08-08] MEDS: Sulfameth/Trimeth DS TAB 1 TAB PO ×2 (08:22→19:58)
[2023-08-08] MEDS: Magnesium Chloride 64 MG TABCR PO ×2 (08:22→19:58)
[2023-08-08] MEDS: Lachydrin 12% LOTION 225 GM BTL TP (08:23)
--- NOTE | 2023-08-08 10:39 | PGE_ITS ---
Date of Service Date of service: 08/08/23 Time of Service: 10:40 Assessment and Plan Assessment and plan (1) Cellulitis: Status: Chronic Assessment and plan: Wound care consult completed Intially treated with Vancomycin. MRSA PCR negative. Patient has broad list of allergies to antibiotics, limiting main antibiotics choices for skin infection w/o MRSA. Will continue Trimethoprim-Sulfamethoxazole ordered as per pharmacy consultation No growth seen in blood blood and urine cultures for 48 hours Skin tears on posterior right calf with purulent drainage: Covered with mepilex, no darinage: continue wound management as per wound consult. (2) Left leg swelling: Status: Acute Assessment and plan: Redness, swelling and difficulty mobilizing left lower extremity, when calf palpated patient mentioned that it hurt because of the palpation LLE is > swollen c/t 08/07 when TEDs were on not TEDs when seen today was on DVT prophylaxis with LMWH, starting treatment at 1mg/kg Q12 while awaiting US LLE; patient is on a PPI (3) Ambulatory dysfunction: Status: Acute Assessment and plan: Boaz remains a 2 assist to transfer PT/OT evaluation and treatment in progress Case management for discharge planning; considering need for placement. fall precautions. (4) HTN (hypertension): Status: Chronic Assessment and plan: Hypertension remains controlled, will continue to monitor. Qualifiers: Hypertension type: primary hypertension Qualified Code(s): I10 - Essential (primary) hypertension (5) Hypokalemia: Status: Acute Assessment and plan: Initially on furosemide, this might have cause the hypokalemia at first; replete and stable on 08/07. today K is 3.1, oral replacement ordered, but limited d/t oral bactrim and interraction with potassium BMP in AM (6) Gastroesophageal reflux disease: Status: Acute Assessment and plan: No report of GERD symptoms and patient is now on DVT treatment with LMWH Will continue omeprazole (7) Chronic obstructive lung disease: Status: Acute Assessment and plan: No oxygen requirement and no signs suspicious for resp. acidosis; lungs clear to auscultation Will continue home inhalers and monitor Qualifiers: COPD type: unspecified COPD Qualified Code(s): J44.9 - Chronic obstructive pulmonary disease, unspecified (8) Hypomagnesemia: Status: Acute Assessment and plan: Mag level was 1.7 on 08/07, despite ongoing oral supplementation and IV replacement on 08/05, will add IV 2 gm and repeat level in AM on 08/09 (9) Discharge planning issues: Status: Acute Assessment and plan: Patient is forgetful and needs major assistance in ADL's Anticipate discharge to skilled rehab facility, referrals placed and pending. discussed with Dr. Isidro Subjective Subjective Patient reports: no new complaints (patient is exuberant when seen, family members in room answering for the patient ), feels better, tolerating liquids well, tolerating a regular diet, voiding w/o difficulty, flatus, bowel movement and afebrile; denies still having pain (Does not remember having pain yesterday), diarrhea, nausea, vomiting, shortness of breath or fever Exam Narrative Exam Narrative: Constitutional The patient is sitting in chair. The patient is without acute distress, slightly agitated and more scattered in her confusion, but remains pleasant HENMT: Head is atraumatic. Facial structures with normal appearance Eyes: Well aligned Neck: Normal ROM, Neuro:alert and oriented to self, person ( but has to be helped to recall relations with in-laws),Knows she is in [place] but in [place], off by 2 days and cannot state year.. No neurological focal deficit Chest:Chest is symmetrical and normal appearance Resp: Normal respiratory pattern, speaks in full rapid sentences, unlabored breathing, clear lung bilaterally Cardio: regular rhythm, S1, S2, bilateral radial and dorsalis pedis pulses are positive, palpable GI: Abdomen is not distended, soft and non tender, bowel sounds are present : Negative Costovertebral angle tenderness, no bladder distension Back/spine/Pelvis: No back tenderness, normal alignment Integumentary: Mepilex to right calf intact no drainage. LLE, red and swollen compared to 08/07, seems more difficult to mobilized than the RLE, no TEDs on patient at this time Extremities: strength 5/5 to bilateral upper extremities, 4/5 to LLE, 5/5 to RLE, Psych: RASS 0, congruent to exalted mood and normal affect. Objective Last Vital Signs Temp 36.6 C 08/08/23 07:48 Pulse 90 08/08/23 07:48 Resp 18 08/08/23 07:48 BP 116/65 08/08/23 07:48 Pulse Ox 98 08/08/23 07:48 Laboratory Results - last 24 hr 08/08/23 03:55 Vancomycin Trough 16.7 Time Spent with Patient Time Spent with Patient: >50 minutes Time was spent: preparing to see the patient(eg.review tests), ordering medications,tests, procedures, referring, communicating with other health overnight caregiver, indepentently interpreting results, counseling the patient and care coordination
[2023-08-08] MEDS: Normal Saline Flush 10 ML SYR IVP ×2 (11:03→19:58)
[2023-08-08] MEDS: MAGNESIUM SULFATE 2 GM/50 ML BAG IVPB (11:04)
[2023-08-08] MEDS: Normal Saline 500 ML 100 ML IV (11:04)
[2023-08-08] MEDS: Acetaminophen 325 MG TAB 650 MG PO (11:25)
[2023-08-08 14:09] LABS: Abs Immature Grans 0.08 10^3/uL (0.0-0.06); Absolute Basophil Count 0.05 10^3/uL (0.0-0.2); Absolute Eosinophil Count 0.09 10^3/uL (0.0-0.7); Absolute Monocyte Count 0.76 10^3/uL (0.1-0.8); Absolute Neutrophil Count 11.16 10^3/uL (1.2-6.7); Basophils % 0.4; Eosinophils % 0.7; HCT 31.1 % (36.0-46.0); HGB 10.1 g/dL (11.2-15.7); Immature Grans % 0.6; Lymphocytes % 7.5; MCH 30.5 pg (27.0-33.0); MCHC 32.5 % (32.0-36.0); MCV 94 fL (80-95); MPV 9.4 fL (8.0-11.0); Monocytes % 5.8; Platelet Count 365 10^3/uL (130-400); RBC 3.31 10^6/uL (3.93-5.22); RDW 14.8 % (11.7-14.6); RDW-SD 50.8 fL; WBC 13.13 10^3/uL (4.4-10.8)
[2023-08-08 14:12] LABS: Absolute Lymphocyte Count 0.98 10^3/uL (1.2-3.4)
[2023-08-08 14:19] LABS: Anion Gap 11.7 mmol/L (3-11); BUN 11 mg/dL (7-18); CO2 21.3 mmol/L (21.0-32.0); CREATININE 1.3 mg/dL (0.55-1.02); Calcium 9.8 mg/dL (8.5-10.1); Chloride 97 mmol/L (98-107); Glucose 142 mg/dL (74-106); Potassium 3.3 mmol/L (3.5-5.1); Sodium 130 mmol/L (136-145)
[2023-08-08 15:54] VITALS: BP 115/66; PULSE 109; RESP 18; TEMP 35.1; O2SAT 98
[2023-08-08] MEDS: Potassium Chloride 10 MEQ CAPCR 40 MEQ PO (18:06)
[2023-08-08] MEDS: Enoxaparin 60 MG/0.6 ML SYR 50 MG SC (19:55)
[2023-08-08 22:55] VITALS: BP 97/61; PULSE 65; RESP 18; TEMP 36; O2SAT 95
[2023-08-09 07:29] VITALS: BP 123/67; PULSE 68; RESP 16; TEMP 36; O2SAT 98
[2023-08-09] MEDS: Lachydrin 12% LOTION 225 GM BTL TP (08:19)
--- NOTE | 2023-08-09 10:58 | PGE_ITS ---
Date of Service Date of service: 08/09/23 Time of Service: 10:58 Assessment and Plan Assessment and plan (1) Cellulitis: Status: Chronic Assessment and plan: Wound care consult completed Intially treated with Vancomycin. MRSA PCR negative. Patient has broad list of allergies to antibiotics, limiting main antibiotics choices for skin infection w/o MRSA. Will continue Trimethoprim-Sulfamethoxazole ordered as per pharmacy consultation No growth seen in blood blood and urine cultures for 48 hours Skin tears on posterior right calf with purulent drainage: Covered with mepilex, no darinage: continue wound management as per wound consult. (2) Left leg swelling: Status: Acute Assessment and plan: Redness, swelling and difficulty mobilizing left lower extremity, when calf palpated patient mentioned that it hurt because of the palpation LLE is > swollen c/t 08/07 when TEDs were on not TEDs when seen today was on DVT prophylaxis with LMWH, starting treatment at 1mg/kg Q12 while awaiting US LLE; patient is on a PPI (3) Ambulatory dysfunction: Status: Acute Assessment and plan: Boaz remains a 2 assist to transfer PT/OT evaluation and treatment in progress Case management for discharge planning; considering need for placement. fall precautions. (4) HTN (hypertension): Status: Chronic Assessment and plan: Hypertension remains controlled, will continue to monitor. Qualifiers: Hypertension type: primary hypertension Qualified Code(s): I10 - Essential (primary) hypertension (5) Hypokalemia: Status: Acute Assessment and plan: Initially on furosemide, this might have cause the hypokalemia at first; replete and stable on 08/07. today K is 3.1, oral replacement ordered, but limited d/t oral bactrim and interraction with potassium BMP in AM (6) Gastroesophageal reflux disease: Status: Acute Assessment and plan: No report of GERD symptoms and patient is now on DVT treatment with LMWH Will continue omeprazole (7) Chronic obstructive lung disease: Status: Acute Assessment and plan: No oxygen requirement and no signs suspicious for resp. acidosis; lungs clear to auscultation Will continue home inhalers and monitor Qualifiers: COPD type: unspecified COPD Qualified Code(s): J44.9 - Chronic obstructive pulmonary disease, unspecified (8) Hypomagnesemia: Status: Acute Assessment and plan: Mag level was 1.7 on 08/07, despite ongoing oral supplementation and IV replacement on 08/05, will add IV 2 gm and repeat level in AM on 08/09 (9) Discharge planning issues: Status: Acute Assessment and plan: Patient is forgetful and needs major assistance in ADL's Anticipate discharge to skilled rehab facility, referrals placed and pending. discussed with Dr. Isidro Subjective Subjective Patient reports: no new complaints Interval history since last seen: remains pleasantly confused. is currently denying pain or issues. unable to provide meaningful history or ROS Exam Narrative Exam Narrative: Frail elderly woman of stated age in no acute distress head is atraumatic oral mucosa is slightly dry, neck is supple with no JVD , cardiovascular regular rate and rhythm her respirations are even and unlabored, diminished in the bases abdomen is soft nontender with positive bowel sounds moves all extremities Skin tear to posterior right calf Mepilex is clean dry and intact no surrounding erythema skin with chronic discoloration. 2 areas to left upper extremity with Mepilex intact no surrounding erythema. left lower extremity greater than right. neuro awake and alert, confused to place and time, unable to provide meaningful history. no behavioral issues Skin General skin exam: ecchymosis (scattered upper and lower extremity, various stages of healing) Objective Last Vital Signs Temp 36 C L 08/09/23 07:29 Pulse 68 08/09/23 07:29 Resp 16 08/09/23 07:29 BP 123/67 08/09/23 07:29 Pulse Ox 98 08/09/23 07:29 Laboratory Results - last 24 hr 08/08/23 13:55 WBC 13.13 H RBC 3.31 L Hgb 10.1 L Hct 31.1 L MCV 94 MCH 30.5 MCHC 32.5 RDW 14.8 H Plt Count 365 D MPV 9.4 Immature Gran % 0.6 Neutrophils % 85.0 Lymphocytes % 7.5 Monocytes % 5.8 Eosinophils % 0.7 Basophils % 0.4 Nucleated RBC % 0.0 Absolute Neutrophils 11.16 H Absolute Lymphocytes 0.98 L Absolute Monocytes 0.76 Absolute Eosinophils 0.09 Absolute Basophils 0.05 Sodium 130 L Potassium 3.3 L Chloride 97 L Carbon Dioxide 21.3 Anion Gap 11.7 H BUN 11 Creatinine 1.3 H Est GFR (CKD-EPI 2020) 40.80 Glucose 142 H Calcium 9.8 Time Spent with Patient Time Spent with Patient: 35-49 minutes Time was spent: preparing to see the patient(eg.review tests), obtaining and/or reviewing separately otained hiistory, ordering medications,tests, procedures, referring, communicating with other health resident care aide and indepentently interpreting results
[2023-08-09 15:43] VITALS: BP 113/55; PULSE 65; RESP 18; TEMP 37.1; O2SAT 98
[2023-08-09] MEDS: Acetaminophen 325 MG TAB 650 MG PO (17:50)
[2023-08-09] MEDS: Budesonide/Formoterol 80/4.5 10.2 GM 120 PUFF INH IH (20:03)
[2023-08-09] MEDS: Sulfameth/Trimeth DS TAB 1 TAB PO (20:08)
[2023-08-09] MEDS: LORazepam 0.5 MG TAB PO (21:32)
[2023-08-09] MEDS: Magnesium Chloride 64 MG TABCR PO (21:32)
[2023-08-09 23:00] VITALS: BP 134/74; PULSE 67; RESP 18; TEMP 36; O2SAT 95
--- NOTE | 2023-08-10 | DI.US_ITS ---
Exam(s) US LOWER EXTREMITY VENOUS LT EXAM: US LOWER EXTREMITY VENOUS LT CLINICAL HISTORY: DVT TECHNIQUE: Left lower extremity venous ultrasound performed using grayscale, color-flow, and spectra l Doppler analysis. COMPARISON: No exams were available for comparison FINDINGS: There is hypoechoic occlusive thrombus seen in the visualized portion of the external iliac vein, fem oral vein and popliteal vein. There is nonocclusive thrombus seen in the peroneal and posterior tibi monalisa veins. The right external iliac vein and right common femoral vein were visualized and are conde nt. The saphenous vein is patent and compressible. There is no evidence of a Valdez cyst. The soft tissues are unremarkable. IMPRESSION: 1. Extensive occlusive thrombus from the visualized left external iliac vein through to the popliteal vein. Nonocclusive thrombus is seen in the left peroneal and posterior tibialis veins. 2. Findings were discussed with HARRIET Sanders at 10:35 a.m. on 08/10/2023. DATA REPOSITORY:
[2023-08-10 07:05] LABS: Abs Immature Grans 0.03 10^3/uL (0.0-0.06); Absolute Basophil Count 0.06 10^3/uL (0.0-0.2); Absolute Eosinophil Count 0.13 10^3/uL (0.0-0.7); Absolute Lymphocyte Count 1.25 10^3/uL (1.2-3.4); Absolute Neutrophil Count 5.72 10^3/uL (1.2-6.7); Basophils % 0.8; Eosinophils % 1.7; HCT 26.1 % (36.0-46.0); HGB 8.6 g/dL (11.2-15.7); Immature Grans % 0.4; Lymphocytes % 16.5; MCH 31.7 pg (27.0-33.0); MCV 96 fL (80-95); MPV 9.1 fL (8.0-11.0); Monocytes % 5.3; Neutrophils % 75.3; Platelet Count 352 10^3/uL (130-400); RBC 2.71 10^6/uL (3.93-5.22); RDW 15.2 % (11.7-14.6); RDW-SD 52.5 fL; WBC 7.59 10^3/uL (4.4-10.8)
[2023-08-10 07:28] LABS: BUN 11 mg/dL (7-18); Chloride 103 mmol/L (98-107); Glucose 79 mg/dL (74-106); Magnesium 2.2 mg/dL (1.8-2.4); Potassium 4.1 mmol/L (3.5-5.1); Sodium 136 mmol/L (136-145)
[2023-08-10] MEDS: Budesonide/Formoterol 80/4.5 10.2 GM 120 PUFF INH IH ×2 (08:12→20:10)
[2023-08-10 08:14] VITALS: BP 115/68; RESP 18; TEMP 36.6; O2SAT 97
[2023-08-10] MEDS: Furosemide 20 MG TAB PO (08:30)
[2023-08-10] MEDS: Omeprazole 20 MG CAPCR PO (08:31)
[2023-08-10] MEDS: Sulfameth/Trimeth DS TAB 1 TAB PO ×2 (08:33→19:43)
[2023-08-10] MEDS: Cholecalciferol (Vitamin D3) 1,000 UNIT TAB 5000 UNITS PO (08:34)
[2023-08-10] MEDS: Montelukast 10 MG TAB PO (08:37)
[2023-08-10] MEDS: Magnesium Chloride 64 MG TABCR PO ×2 (08:38→19:42)
[2023-08-10] MEDS: Enoxaparin 60 MG/0.6 ML SYR 50 MG SC ×2 (08:39→19:42)
[2023-08-10] MEDS: Lachydrin 12% LOTION 225 GM BTL TP (08:41)
--- NOTE | 2023-08-10 10:31 | OT.INNT ---
Occupational Therapy Notes 08/10/23 OT consult received and pts chart was reviewed. OT went to consult with pt who was having testing done in her room. OT will attempt consult at another time. Steff Harris OTR/L
--- NOTE | 2023-08-10 10:39 | PGE_ITS ---
Date of Service Date of service: 08/20/23 Time of Service: 10:39 Assessment and Plan Assessment and plan (1) Left leg DVT: Status: Acute Assessment and plan: confirmed by ultrasound, has been fully anticoagulated on enoxaparin. will transition to a doac (2) Cellulitis: Status: Chronic Assessment and plan: Wound care consult completed Intially treated with Vancomycin. MRSA PCR negative. Patient has broad list of allergies to antibiotics, limiting main antibiotics choices for skin infection w/o MRSA. Will continue Trimethoprim-Sulfamethoxazole ordered as per pharmacy consultation No growth seen in blood blood and urine cultures for 48 hours Skin tears on posterior right calf with purulent drainage: Covered with mepilex, no darinage: continue wound management as per wound consult. (3) Ambulatory dysfunction: Status: Acute Assessment and plan: Patient remains a 2 assist to transfer PT/OT evaluation and treatment in progress Case management for discharge planning; referrals placed to skilled rehab fall precautions. (4) HTN (hypertension): Status: Chronic Assessment and plan: blood pressure controlled, will continue to monitor. Qualifiers: Hypertension type: primary hypertension Qualified Code(s): I10 - Essential (primary) hypertension (5) Hypokalemia: Status: Resolved Assessment and plan: normalized with supplementation is on lasix daily, consider daily potassium supplementation once course of bactrim complete. monitor (6) Gastroesophageal reflux disease: Status: Acute Assessment and plan: No report of GERD symptoms and patient is now on DVT treatment with LMWH Will continue omeprazole (7) Chronic obstructive lung disease: Status: Chronic Assessment and plan: stable with no exacerbation, no respiratory symptoms or hypoxia Will continue home inhalers and monitor Qualifiers: COPD type: unspecified COPD Qualified Code(s): J44.9 - Chronic obstructive pulmonary disease, unspecified (8) Hypomagnesemia: Status: Resolved Assessment and plan: normalized continue oral supplementation (9) Discharge planning issues: Status: Acute Assessment and plan: Patient is forgetful and needs major assistance in ADL's Anticipate discharge to skilled rehab facility, referrals placed and pending and accepted for tomorrow.. discussed with Dr. Isidro Subjective Subjective Patient reports: no new complaints, tolerating liquids well and tolerating a regular diet Interval history since last seen: remains pleasantly confused. no fever. no behavioral issues Exam Narrative Exam Narrative: Frail elderly woman of stated age in no acute distress head is atraumatic oral mucosa is slightly dry, neck is supple with no JVD , cardiovascular regular rate and rhythm her respirations are even and unlabored, diminished in the bases abdomen is soft nontender with positive bowel sounds moves all extremities Skin tear to posterior right calf Mepilex is clean dry and intact no surrounding erythema skin with chronic discoloration. 2 areas to left upper extremity with Mepilex intact no surrounding erythema. left lower extremity greater than right. neuro awake and alert, confused to place and time, unable to provide meaningful history. no behavioral issues Skin General skin exam: ecchymosis (scattered upper and lower extremity, various stages of healing) Objective Last Vital Signs Temp 36.6 C 08/10/23 08:14 Pulse 67 08/09/23 23:00 Resp 18 08/10/23 08:14 BP 115/68 08/10/23 08:14 Pulse Ox 97 08/10/23 08:14 Laboratory Results - last 24 hr 08/09/23 08/10/23 08/10/23 10:45 06:14 06:14 WBC Cancelled 7.59 RBC Cancelled 2.71 L Hgb Cancelled 8.6 L Hct Cancelled 26.1 L MCV Cancelled 96 H MCH Cancelled 31.7 MCHC Cancelled 33.0 RDW Cancelled 15.2 H Plt Count Cancelled 352 MPV Cancelled 9.1 Immature Gran % Cancelled 0.4 Neutrophils % Cancelled 75.3 Band Neutrophils % Cancelled Lymphocytes % Cancelled 16.5 Atypical Lymphs % Cancelled Monocytes % Cancelled 5.3 Eosinophils % Cancelled 1.7 Basophils % Cancelled 0.8 Metamyelocytes % Cancelled Myelocytes % Cancelled Promyelocytes % Cancelled Other Cells % Cancelled Nucleated RBC % Cancelled 0.0 Absolute Neutrophils Cancelled 5.72 Absolute Lymphocytes Cancelled 1.25 Absolute Monocytes Cancelled 0.40 Absolute Eosinophils Cancelled 0.13 Absolute Basophils Cancelled 0.06 RBC Morphology Cancelled Polychromasia Cancelled Hypochromasia Cancelled Poikilocytosis Cancelled Basophilic Stippling Cancelled Anisocytosis Cancelled Microcytosis Cancelled Macrocytosis Cancelled Spherocytes Cancelled Tear Drop Cells Cancelled Ovalocytes Cancelled Stomatocytes Cancelled [place] Bodies Cancelled [place] Cells/Echinocytes Cancelled Acanthocytes (Spur) Cancelled Schistocytes Cancelled Sodium 136 Potassium 4.1 Chloride 103 Carbon Dioxide 24.0 Anion Gap 9.0 BUN 11 Creatinine 1.0 Est GFR (CKD-EPI 2020) 55.90 Glucose 79 Calcium 9.0 Magnesium 2.2 Cancelled Time Spent with Patient Time Spent with Patient: 35-49 minutes Time was spent: preparing to see the patient(eg.review tests), ordering medications,tests, procedures, referring, communicating with other health home care assistant, indepentently interpreting results and care coordination
[2023-08-10 11:23] LABS: Bilirubin Negative (Negative); Blood Small (Negative); Clarity Sl Cloudy (Clear); Glucose Negative (Negative); Ketones Negative (Negative); Leukocyte Esterase Negative (Negative); Nitrite Negative (Negative); Specific Gravity >= 1.030 (1.005-1.025); Urobilinogen 0.2 mg/dL (Up to 0.2); pH 5.5 (5-8)
[2023-08-10 11:31] LABS: Bacteria Negative HPF (Negative); C & S Indicated? No; Casts Negative LPF (Negative); Crystals Negative HPF (Negative); Epithelial Cells Rare HPF (Negative); Mucus Negative (Negative); WBC 0-2 HPF (0-5)
[2023-08-10 15:45] VITALS: BP 105/72; PULSE 85; RESP 17; TEMP 36.2; O2SAT 96
--- NOTE | 2023-08-10 18:17 | CMPROGNOTE_ITS ---
Date of service: 08/10/23 Time of Service: 18:17 Care Management Progress Note Progress Note Text Progress Note Text: S/O: Pat was sleeping when CM attempted to meet with her today. CM discussed her plan with her grandson, Jason, who is helping to coordinate manager terminal care for Pat in the community. CM spoke to Lisseth at [facility] ([phone]), who accepted Pat for admission tomorrow, pending insurance review. CM agreed to send Pat at 11am, to have her arrive at the facility around noon. CM will coordinate transport, likely EMS due to confusion, per provider. Family is not available for transport. CM will continue to follow. A: Pat is an 83 year old female admitted to [facility] on 08/03/23 for ambulatory dysfunction. P: Anticipate Pat will go to SNF for short term rehab, prior to transitioning to prison care. Her family has been working on an application at [facility]; CM will send a referral for short term rehab to [facility]. She will transport via private vehicle by family vs [facility]. She will follow up with her PCP and discharge plan of care. CM will continue to follow.
[2023-08-10] MEDS: Acetaminophen 325 MG TAB 650 MG PO (19:42)
[2023-08-10] MEDS: LORazepam 0.5 MG TAB PO (19:42)
[2023-08-11] VITALS (12 sets, daily range): BP systolic 102–129; BP diastolic 63–80; PULSE 75–128; RESP 16–18; TEMP 35.8–36.8; O2SAT 92–98
--- NOTE | 2023-08-11 | DI.CT_ITS ---
Exam(s) CT HEAD WO EXAM: CT HEAD WO CLINICAL HISTORY: fall, on anticoagulant, no neuro changes. TECHNIQUE: Imaging Protocol: Axial computed tomography images with coronal and sagittal reformatted images were created and reviewed COMPARISON: CT CT HEAD CERVICAL SPINE WO from 07/10/[address] HEAD WO from 07/14/2023 FINDINGS: There are no skull fractures. There is no fluid in the visualized paranasal sinuses. There is no evidence of intracranial hemorrhage, mass effect, or shift of midline structures. There are no extra-axial fluid collections. The ventricles are unchanged in size. Mildly prominent but no t out of proportion compared to overlying cortical sulci. There is a small nonhemorrhagic lacunar infarct in the inferior right basal ganglia measuring 5 x 4 m m. This is unchanged from prior studies. IMPRESSION: No acute intracranial findings on this noninfused CT scan of the brain. RADIATION DOSE DELIVERED: Total DLP DATA REPOSITORY: All CT scans at this facility are submitted to the National Radiology Data Registry (NRDR) Dose Index Registry (DIR) with the [employer] (ACR). RADIATION OPTIMIZATION: All CT scans at this facility use at least one of these dose optimization te chniques: automated exposure control; mA and/or kV adjustment per patient size (includes targeted exa ms where dose is matched to clinical indication); or iterative reconstruction.
[2023-08-11] MEDS: Budesonide/Formoterol 80/4.5 10.2 GM 120 PUFF INH IH (07:38)
[2023-08-11] MEDS: Montelukast 10 MG TAB PO (08:26)
[2023-08-11] MEDS: Lachydrin 12% LOTION 225 GM BTL TP (08:26)
[2023-08-11] MEDS: Sulfameth/Trimeth DS TAB 1 TAB PO (08:26)
[2023-08-11] MEDS: Cholecalciferol (Vitamin D3) 1,000 UNIT TAB 5000 UNITS PO (08:27)
[2023-08-11] MEDS: Omeprazole 20 MG CAPCR PO (08:27)
[2023-08-11] MEDS: Furosemide 20 MG TAB PO (08:27)
[2023-08-11] MEDS: Magnesium Chloride 64 MG TABCR PO (08:27)
--- NOTE | 2023-08-11 10:33 | PDOC.CMPRO ---
Date of service: 08/11/23 Time of Service: 10:33 Care Management Progress Note Progress Note Text Progress Note Text: S/O: Pat A: Pat is an 83 year old female admitted to [facility] on 08/03/23 for ambulatory dysfunction. P: Anticipate Pat will go to SNF for short term rehab, prior to transitioning to [facility] care. Her family has been working on an application at [facility]; CM will send a referral for short term rehab to [facility]. She will transport via private vehicle by family vs [facility]. She will follow up with her PCP and discharge plan of care. CM will continue to follow.
[2023-08-11 10:59] LABS: Abs Immature Grans 0.15 10^3/uL (0.0-0.06); Absolute Basophil Count 0.09 10^3/uL (0.0-0.2); Absolute Eosinophil Count 0.13 10^3/uL (0.0-0.7); Absolute Lymphocyte Count 1.51 10^3/uL (1.2-3.4); Absolute Monocyte Count 0.29 10^3/uL (0.1-0.8); Absolute Neutrophil Count 7.46 10^3/uL (1.2-6.7); Basophils % 0.9; Eosinophils % 1.3; HCT 26.8 % (36.0-46.0); HGB 9.1 g/dL (11.2-15.7); Immature Grans % 1.6; Lymphocytes % 15.7; MCH 31.3 pg (27.0-33.0); MCV 92 fL (80-95); MPV 9.1 fL (8.0-11.0); Neutrophils % 77.5; Platelet Count 431 10^3/uL (130-400); RBC 2.91 10^6/uL (3.93-5.22); RDW 14.8 % (11.7-14.6); RDW-SD 49.5 fL; WBC 9.63 10^3/uL (4.4-10.8)
--- NOTE | 2023-08-11 11:14 | DSE_ITS ---
Date of service: 08/11/23 Time of Service: 11:14 DS: Diagnosis Discharge Diagnosis (1) Left leg DVT: Status: Acute (2) Cellulitis: Status: Chronic (3) Ambulatory dysfunction: Status: Acute (4) HTN (hypertension): Status: Chronic (5) Hypokalemia: Status: Resolved (6) Gastroesophageal reflux disease: Status: Acute (7) Chronic obstructive lung disease: Status: Chronic (8) Hypomagnesemia: Status: Resolved Discharge Plan Disposition Patient Disposition: Retirement Facility(SNF) Condition: Stable Discharge Details Reason For Visit: ambulatory dysfunction Admit Date/Time: 08/03/23 14:37 Admit Provider: Vera Jaffe Attending Provider: Vera Jaffe Primary Care Provider: Cait Aguiar Hospital Course Hospital Course: This is a 83-year-old female patient past medical history significant for COPD G ERD depression venous stasis frequent falls who presented to the emergency department for evaluation after family reported increased generalized weakness. There were no recent medical illnesses reported. Workup in the emergency department showed no acute infection electrolyte imbalance or other abnormality to explain her symptoms. Physical therapy was consulted and patient was not able to be safely really ambulated for discharge to her current living situation. She was also noted to have cognitive impairment which family states has been progressing. She was admitted to the medical surgical unit under hospitalist services. She did have some skin tears from her falls that were beginning to drain purulent drainage. She was started on antibiotics wound care consultation placed and daily dressing initiated. She was also found to have periods of increased confusion and was refusing some medications and refusing to take oral intake at times. She was easily redirected with no behavioral disturbances. During her hospitalization noted to have increased swelling to her left lower extremity and ultrasound was obtained that did show DVT. She was started on full dose enoxaparin but again was intermittently refusing these injections as well as some of her p.o. meds. Hemodynamically she is remained stable she has had no complaints of chest pain shortness of breath or hypoxia so oxygenating 97% on room air. Family has been exploring options for long-term care placement case management has been following here for short-term rehabilitation prior to final disposition. She has been accepted at a custodial facility and is being transported by ground EMS secondary to her intermittent confusion and DVT. Home Meds and New Rx's Prescriptions: New sulfamethoxazole-trimethoprim 800-160 mg Tablet 1 tab PO Q12H Qty: 14 0RF apixaban 5 mg (74 tabs) tablets,dose pack See Rx Instructions .ROUTE .COMPLEX Qty: 74 0RF Rx Instructions: orally per package directions Continued furosemide 20 mg tablet 20 mg PO DAILY Qty: 90 1RF Mag 64 64 MG tablet,delayed release (DR/EC) 64 mg PO BID Patient Comments: 02/27/19 er--currently on hold biotin 1 MG tablet 1 mg PO DAILY cholecalciferol (vitamin D3) 5,000 UNIT tablet 5,000 unit PO DAILY Lac-Hydrin Five 5 % lotion 1 applic topical DAILY Qty: 226 0RF montelukast [Singulair] 10 mg tablet 10 mg PO DAILY Qty: 90 4RF albuterol sulfate 90 mcg/actuation HFA aerosol inhaler 2 puff inhalation QID PRN (Reason: shortness of breath or wheezing) Qty: 8.5 4RF omeprazole 20 mg capsule,delayed release(DR/EC) See Rx Instructions .ROUTE .COMPLEX Qty: 90 3RF Dose Instruction: TAKE ONE CAPSULE BY MOUTH ONCE DAILY Rx Instructions: TAKE ONE CAPSULE BY MOUTH ONCE DAILY (DME) Mepilex 4 X 4 bandage See Rx Instructions .Route Qty: 5 3RF Rx Instructions: change bandage twice weekly fluticasone propion-salmeterol [Advair HFA] 45-21 mcg/actuation HFA aerosol inhaler 2 puff inhalation BID Qty: 12 3RF fluticasone propionate 50 mcg/actuation spray,suspension 1 spray NS BID PRN (Reason: allergy symptoms) Qty: 16 4RF lorazepam 0.5 mg tablet 0.5 mg PO QHS PRN (Reason: anxiety) Qty: 28 0RF (DME) Xeroform Petrolatum Dressing 2 X 2 bandage See Rx Instructions .Route Qty: 150 0RF Rx Instructions: As directed Discharge Instructions Instructions: Apixaban (By mouth), Cellulitis (DC), Deep Vein Thrombosis (DC), Fall Prevention (DC) Additional Instructions: Change dressing to left shoulder daily. Wash with warm soapy water rinse well pat dry completely can apply thin layer of bacitracin and cover with Mepilex. Dressing to left mid upper extremity change every 3 days after routine skin care Dressing to left forearm change every 3 days after routine skin care Would benefit from wound care consultation if available Continue antibiotics for 5 more days or as determined by outpatient care team Referrals: Cait Aguiar NP [Primary Care Provider] - Activity:: Activity as Tolerated Equipment/Supplies:: No Equipment Needed Diet:: As Tolerated Discharge Orders Discharge Orders: Discharge Order (Routine); Ordered 08/11/23 Ordered By: Aissatou Gonzáles DS: Summary Time Spent with Patient providing and/or coordinating discharge services: Greater than 30 minutes Status at Discharge Functional status at discharge: uses cane/walker Overall status at discharge: patient is not back to baseline Mental Status: other (confused) Speech and Movement: speech and movement normal Mood: congruent mood and other (confused) Affect: normal affect Exam Narrative Exam Narrative: Frail elderly woman of stated age in no acute distress head is atraumatic oral mucosa is slightly dry, neck is supple with no JVD , cardiovascular regular rate and rhythm her respirations are even and unlabored, diminished in the bases abdomen is soft nontender with positive bowel sounds moves all extremities Skin tear to posterior right calf healed, no surrounding erythema skin to bilateral lower with chronic discoloration. 2 areas to left upper extremity with Mepilex intact no surrounding erythema. left lower extremity edema greater than right. neuro awake and alert, oriented to person, confused to place and time, unable to provide meaningful history. no behavioral issues Skin General skin exam: ecchymosis (scattered upper and lower extremity, various stages of healing) Lesions: lesion noted (left shoulder, approx 3 cm x4 cm draining purulent drainage) Rashes: no rashes Trauma: other (skin tear left forearm, healed abrasion to mid left upper ext) Psych Mental Status: other (confused) Speech and Movement: speech and movement normal Mood: congruent mood and other (confused) Affect: normal affect DS: Data Vitals/I&O Vitals and I&O: Vital Signs Temperature 35.8 C L 08/11/23 10:15 Temperature Source Tympanic 08/11/23 10:15 Pulse 75 08/11/23 10:15 Pulse Rhythm Regular 08/10/23 19:45 Pulse 79 08/03/23 15:40 Respiratory Rate 16 08/11/23 10:15 Respiratory Effort Normal, Non-Labored 08/10/23 19:45 Respiratory Depth Normal 08/10/23 19:45 Respiratory Pattern Normal 08/10/23 19:45 Blood Pressure 117/66 08/11/23 10:15 Blood Pressure Mean 74 08/03/23 11:30 Blood Pressure Position Sitting 08/03/23 10:31 Pulse Oximetry 97 08/11/23 10:15 Oxygen Delivery Method Room Air 08/11/23 10:15 Oxygen Flow Rate 0 08/11/23 10:15 Pain Level 0 08/11/23 10:15 Comment Pt. denies pain at this time. 08/11/23 10:15 Intake & Output 08/10/23 08/10/23 08/11/23 11:59 23:59 11:59 Intake Total 5 / 5 0 / 0 Output Total 700 / 700 350 / 350 Balance -700 / -695 5 / -695 -350 / -350 Intake: IV 5 / 5 0 / 0 Output: Urine 700 / 700 350 / 350 Other: Urine Color Yellow Yellow Yellow Urine Appearance Clear Clear Clear Comment 250ml via strait cath. pT [place] leaking, pT depends was a little wet. Data Completed and Pending Labs on day of discharge: Labs from last 24 hours 08/11/23 08/10/23 10:50 11:00 WBC 9.63 RBC 2.91 L Hgb 9.1 L Hct 26.8 L MCV 92 D MCH 31.3 MCHC 34.0 RDW 14.8 H Plt Count 431 H MPV 9.1 Immature Gran % 1.6 Neutrophils % 77.5 Lymphocytes % 15.7 Monocytes % 3.0 Eosinophils % 1.3 Basophils % 0.9 Nucleated RBC % 0.0 Absolute Neutrophils 7.46 H Absolute Lymphocytes 1.51 Absolute Monocytes 0.29 Absolute Eosinophils 0.13 Absolute Basophils 0.09 Urine Color Yellow Urine Clarity Sl Cloudy Urine pH 5.5 Ur Specific [place] >= 1.030 H Urine Protein Negative Urine Ketones Negative Urine Blood Small H Urine Nitrite Negative Urine Bilirubin Negative Urine Urobilinogen 0.2 Ur Leukocyte Esterase Negative Urine RBC 3-5 H Urine WBC 0-2 Ur Epithelial Cells Rare Urine Crystals Negative Urine Bacteria Negative Urine Casts Negative Urine Mucus Negative Ur Culture Indicated? No Urine Glucose Negative PFSH All Active Problems (Updated 08/10/23 @ 10:44 by Aissatou Gonzáles NP) Left leg DVT (Acute) Left leg swelling (Acute) Discharge planning issues (Acute) Ambulatory dysfunction (Acute) Generalized weakness (Acute) Vascular insufficiency of extremity (Acute) Foot pain, bilateral (Acute) Neck abrasion (Acute) Arthritis (Acute) Skin ulcer (Acute) Leg edema (Chronic) Pruritic disorder (Acute) Prediabetes (Acute) Cellulitis (Chronic) Eczema (Chronic) HTN (hypertension) (Chronic) Varicose veins of lower extremity (Acute) Total urinary incontinence (Acute) Mild persistent asthma without complication (Acute 03/19/18) Gastroesophageal reflux disease (Acute) Depressive disorder (Acute 08/03/13) Chronic obstructive lung disease (Chronic) Medical History Skin tag 02/02- flesh color under right eye Superficial partial thickness burn of back excluding buttock Bruising Non-toxic uninodular goiter Hyperlipidemia Surgical History History of bilateral ligation of fallopian tubes Status post inguinal hernia repair History of cystoscopy hx UTI Ligation of fallopian tube Repair of inguinal hernia left, direct, Dr Nicole Shelley, [facility] Family History Mother , age 70 Heart disease Asthma Father , age 65 Heart disease Cancer Sister , age 74 RA (rheumatoid arthritis) Heart disease Asthma Brother , 63 Asthma Cancer Diabetes Brother Essential hypertension Depression Heart disease Asthma Maternal Grandfather , 85 Heart disease Asthma Paternal Grandfather , DROWNED at age 81. Cancer Maternal Grandmother , in her 80s Diabetes Paternal Grandmother , 70 Stroke Son RA (rheumatoid arthritis) Daughter Diabetes Depression Stroke MS (multiple sclerosis) Asthma Social History Smoking/Tobacco Use Status: Current-Occasional Tobacco Type: cigarettes Quit status: quit date established Second Hand Exposure: Yes Smoking risk assessment performed?: Yes Alcohol Intake: current Alcohol Intake frequency: holidays/special occasions only Alcohol type: wine Drug use: Never Substance use type: does not use Caregiver/Support person: No Household members: none Housing: house Communication Needs: Corrective Lenses Do you need help understanding health information?: Never Pets and animals: No Sexually active: No What is your relationship status?: How often do you talk on the phone with friends or family?: three or more times per week How often do you get together with friends or relatives?: decline to answer How often do you attend orthodox or yarsani services?: decline to answer Do you belong to any clubs or organized social groups?: no Panel score (0-1 are the most socially isolated patients): 1 What type of physical activity do you participate in: none Frequency: does not exercise Verito/Scientology: None Special verito needs: No Seatbelt use: always Helmet use: No Drive intox or ride w/intox [employer] 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 Time Spent with Patient Time Spent with Patient: 45-69 minutes Time was spent: preparing to see the patient(eg.review tests), obtaining and/or reviewing separately otained hiistory, ordering medications,tests, procedures, referring, communicating with other health medicare specialist, indepentently interpreting results and care coordination
[2023-08-11] MEDS: Enoxaparin 60 MG/0.6 ML SYR 50 MG SC (11:39)
--- NOTE | 2023-08-11 16:41 | CMDISCH_ITS ---
Date of service: 08/11/23 LACE Index Scoring Tool Questions: Length of Stay (in days): 7 - 13 Was the patient admitted via the E.D.?: Yes Comorbidities: PVD and Chronic Pulmonary Disease E.D. Visits: 4 Answers: Total Score: 15 Risk of Readmission: High Risk Care Management Discharge Plan Reason for Hospitalization: Ambulatory dysfunction Discharge Plan: Pat will go to SNF for short term rehab, prior to transitioning to [place] care. She has been accepted at [facility]. Pat will transport via EMS coordinated by CM and follow up with the facility providers and plan of care. Patient/Family Education Needs: Review discharge instructions and limitations, discussion of self care needs including ask me three. Services Needed at Discharge: Senior Care Facility
== END 2023-08-11 12:44 | disposition skilled nursing facility (03) | DRG 603 ==
LOC: ER 14:46 → MS 08-04 12:14
PROVIDERS: Family Medicine; Internal Medicine; Nurse Practitioner Acute Care; Admitting Provider Internal Medicine; Emergency Provider Emergency Medicine; PCP Nurse Practitioner Family; Visit Provider Internal Medicine
DX: L03.115 Cellulitis of right lower limb; I82.422 Acute embolism and thrombosis of left iliac vein; I82.412 Acute embolism and thrombosis of left femoral vein; I82.432 Acute embolism and thrombosis of left popliteal vein; I82.442 Acute embolism and thrombosis of left tibial vein; I82.452 Acute embolism and thrombosis of left peroneal vein; I10 Essential (primary) hypertension; R26.2 Difficulty in walking, not elsewhere classified; E87.6 Hypokalemia; K21.9 Gastro-esophageal reflux disease without esophagitis; J44.9 Chronic obstructive pulmonary disease, unspecified; E83.42 Hypomagnesemia; I73.9 Peripheral vascular disease, unspecified; R73.03 Prediabetes; L30.9 Dermatitis, unspecified; J45.30 Mild persistent asthma, uncomplicated; F32.A Depression, unspecified; N39.498 Other specified urinary incontinence; E78.5 Hyperlipidemia, unspecified; E04.1 Nontoxic single thyroid nodule; F17.210 Nicotine dependence, cigarettes, uncomplicated; H92.01 Otalgia, right ear; S81.811A Laceration without foreign body, right lower leg, initial encounter; S41.112A Laceration without foreign body of left upper arm, initial encounter; R53.1 Weakness; W19.XXXA Unspecified fall, initial encounter
CPT/HCPCS: 00123; 36410; 36415; 36416; 80048; 80053; 84145; 85027; 87040; 87493; 87635; 87641; 94640; 96360; 97162; 97530; 99285; J1650; 70450; 71045; 80202; 81003; 81015; 83735; 85025; 87086; 93971; 94664; 99223; 99232; 99233; 99239; J2020; J3475